=== PATIENT | female | born 1960 | race Caucasian/White ===

== ENCOUNTER 2019-06-11 21:58 | Emergency (ER) | payer BC, SELFPAY ==
--- NOTE | ~2019-06-11 | XR_ITS ---
XR wrist RT min 3V 06/11/2019 22:26 INDICATION: Right wrist pain PROCEDURE: 4 views right wrist COMPARISON: No prior studies for comparison FINDINGS: Fracture, dislocation or subluxation is not identified. Scaphoid appears to be intact. The soft tissues appear within normal limits. No foreign bodies are identified. IMPRESSION: 1: NO ACUTE BONE OR JOINT ABNORMALITY IDENTIFIED. Reviewed, dictated and finalized at location A. [facility] OFFICE ASSISTANT
[2019-06-11 22:02] VITALS: BP 100/51; PULSE 68; RESP 16; TEMP 36.3; O2SAT 97
--- NOTE | 2019-06-11 22:12 | ED.UPPEXIN ---
HPI - Extremity Injury (Upper) General Chief Complaint: Extremity Injury, Upper Stated Complaint: R wrist pain Time Seen by Provider: 06/11/19 22:10 Source: patient and RN notes reviewed Mode of arrival: ambulatory Limitations: no limitations History of Present Illness HPI narrative: Pt is a 58 y/o female who presents to the ED with c/o right wrist pain that radiates up her RUE which began this morning. Pt states the pain began this morning. She reports numbness and tingling to her right digits and RUE, and edema to her right wrist, which makes her think it may be associated to carpal tunnel syndrome. 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 Pt reports taking Aleve this morning and Vicodin an hour ago without alleviation of her symptoms.. Patient states she has had previous carpal tunnel surgery on the hand. MD complaint: injury to: right and wrist Onset (ago): hour(s) (this morning) Other injuries: none Handedness: right Place: work Relieving factors: none (tried different pain medications without relief) Context: other (suddenly) Associated symptoms: numbness (and tingling to her right digits and RUE) and other (edema to right wrist) Related Data Allergies Allergy/AdvReac Type Severity Reaction Status Date / Time codeine Allergy Unknown itching Verified 02/17/19 15:16 Sulfa (Sulfonamide Allergy Unknown itching, Verified 02/17/19 15:16 Antibiotics) headache Review of Systems Review of Systems: All systems reviewed & are unremarkable except as noted in HPI and below Cardiovascular: Cardiovascular: Reports edema (to the right wrist) Musculoskeletal: Musculoskeletal: Reports arthralgias (right wrist pain which radiates to her RUE) Neurologic: Reports numbness (and tingling to her right digits and RUE) [facility] Past Medical History Medical History (Updated 06/11/19 @ 23:13 by Darwin Brambila DO) Anxiety Arthritis Breast cancer Depression Shingles UTI (urinary tract infection) Surgical History Surgical History (Updated 06/11/19 @ 22:19 by Mary Torres) H/O mastectomy H/O: hysterectomy History of bladder surgery Hx of tonsillectomy Social History Social History Smoking status: Smoker, status unknown Alcohol intake: current Gender identity (if verbalized by the patient): Female Exam Narrative: Exam Narrative: APPEARANCE: No acute distress, nontoxic, resting in bed Eyes: EOMI HEENT: Normocephalic, atraumatic, RESPIRATORY: No respiratory distress MUSCULOSKELETAl: Tender palpation over the palmar aspect of the right wrist, mild swelling noted, no tenderness of the elbow or shoulder, radial pulse 2+, neurovascular intact, two-point tactile discrimination 5 mm in all 5 digits of the right hand NEURO: Awake and alert. Following commands, speech normal, no focal deficits SKIN:: Warm, dry. Normal Color no rash or lesions Course Course Emergency Course: Patient states she is on meloxicam at home Patient requesting more for pain. Discussed my concern with narcotics for current pain. Patient states that she cannot take NSAIDs because of meloxicam and that she had a leftover [place] which did not for the pain. Will give small dose of morphine at this time discussed with patient minimal prescription for pain medication will need follow-up with hand surgeon or PCP. Patient does state that she has cock-up wrist splint at home Discussed with patient results of workup and diagnosis. Discussed need for follow-up with primary care, proper use of medication, and reasons to return to the emergency department. Patient understands and agrees to current treatment plan Vital Signs Vital signs: Vital Signs Temperature 97.3 F L 06/11/19 22:02 Pulse Rate 68 06/11/19 22:02 Respiratory Rate 16 06/11/19 22:02 Blood Pressure 100/51 L 06/11/19 22:02 Pulse Oximetry 97 06/11/19 22:02 Temperature 98.3 F 06/11/19 22:25 Pulse Rate 81 06/11/19 22:25 Respiratory
[2019-06-11 22:25] VITALS: BP 138/88; PULSE 81; RESP 16; TEMP 36.8; O2SAT 100
[2019-06-11 23:30] VITALS: BP 133/82; PULSE 84; RESP 16; TEMP 36.8; O2SAT 100
[2019-06-11] MEDS: MORPHINE SULFATE 2 MG/ML INJ IM (23:54)
== END 2019-06-11 23:30 | disposition home or self-care (01) ==
PROVIDERS: Emergency Provider Emergency Medicine; PCP Family Medicine
DX: M25.531 Pain in right wrist (principal); M19.90 Unspecified osteoarthritis, unspecified site; Z85.3 Personal history of malignant neoplasm of breast; Z87.440 Personal history of urinary (tract) infections
CPT/HCPCS: 73110; 96372; 99283; J2270

== ENCOUNTER 2021-04-25 07:54 | Outpatient (CLI) | payer BC, SELFPAY ==
--- NOTE | ~2021-04-25 | DEXA_ITS ---
Bone Density Report Name: [facility] Age: 60 Sex: Female Ethnicity: White Date of : 1960 Indication: postmenopausal; parental hip fracture; history of glucocorticoids; cancer; hysterectomy; rheumatoid arthritis; Referring Provider: UNKNOWN, UNKNOWN Study: Bone densitometry was performed. Exam Date: April 25, 2021 Accession number: [id number] Bone Density: Region BMD T-score Z-score Classification AP Spine (L1-L4) 1.060 0.1 1.4 Normal Femoral Neck (Left) 0.791 -0.5 0.7 Normal Total Hip (Left) 0.976 0.3 1.2 Normal Total Hip Bilateral Avg 0.940 0.0 0.9 Normal Femoral Neck (Right) 0.722 -1.1 0.1 Osteopenia Total Hip (Right) 0.902 -0.3 0.5 Normal World Health Organization criteria for BMD impression classify patients as: Normal (T-score at or above -1.0), Osteopenia (T-score between -1.0 and -2.5), or Osteoporosis (T-score at or below -2.5). 10-year Fracture Risk(1): Major Osteoporotic Fracture 27% Hip Fracture 1.1% Reported Risk Factors: [place] (), Neck BMD=0.722, BMI=26.6, parental fracture, glucocorticoids, rheumatoid arthritis (1) FRAX(R) Version 3.08. Fracture probability calculated for an untreated patient. Fracture probability may be lower if the patient has received treatment. Clinical Information Provided by Patient: Parent has had a hip fracture Has taken Glucocorticoids Has rheumatoid arthritis Has used the following medications: Vitamin D, Calcium Has the following medical conditions: Cancer, Hysterectomy Patient maximum height was 61 Menopause Age: 48 Does not regularly consume dairy products Drinks caffeinated beverages Onset of menses at age 15 Number of children 2 Impression: The patient has low bone mass, based on the Right Femoral Neck T-score. The patient has an estimated ten-year risk of hip fracture of 1.1% and an estimated ten-year risk of major fracture of 27%, based on the WHO FRAX algorithm. The patient has risk factors, including: parental hip fracture, history of glucocorticoid therapy. Discussion: BONE DENSITY IS LOW AT ONE OR MORE SKELETAL SITES. THE PATIENT'S BMD AND CLINICAL RISK FACTORS CONTRIBUTE TO THIS PATIENT'S INCREASED RISK OF FRACTURE. This patient's lowest T-score is low at one or more skeletal sites. It meets the World Health Organization's (WHO) criteria for ?low bone mass? (T-score between -1.0 and -2.5). The patient's 10-year risk of a major osteoporotic fracture as calculated by FRAX exceeds the threshold where pharmacological therapy is recommended by the National Osteoporosis Foundation (NOF). However, all treatment decisions require clinical judgment and consideration of individual patient factors, including patient preferences, comorbidities, previous drug use, risk factors not captured in the FRAX model (e.g., frailty, falls,
== END 2021-04-25 07:55 | disposition home or self-care (01) ==
PROVIDERS: PCP Family Medicine
DX: C50.919 Malignant neoplasm of unspecified site of unspecified female breast (principal); M85.851 Other specified disorders of bone density and structure, right thigh
CPT/HCPCS: 77080

== ENCOUNTER 2021-10-21 14:15 | Emergency (ER) | payer BC, SELFPAY ==
--- NOTE | ~2021-10-21 | XR_ITS ---
EXAMINATION: XR chest 2V DATE: 10/21/2021 14:47 INDICATION: Breast pain TECHNIQUE: PA and lateral views of the chest are obtained. COMPARISON: 07/06/2019 FINDINGS: The lungs are free of acute opacities. There is no pleural effusion or pneumothorax. The ca rdiomediastinal silhouette is normal. There is moderate thoracic spondylosis. Bilateral breast implan ts are noted. IMPRESSION: 1. No acute cardiopulmonary abnormality. Reviewed, dictated and finalized at location A.
--- NOTE | 2021-10-21 14:18 | ECG_ITS ---
Measurements Intervals [place] Rate: 70 P: 24 [place]: 200 QRS: -7 QRSD: 101 T: 47 QT: 434 QTc: 469 Interpretive Statements SINUS RHYTHM LOW QRS VOLTAGE IN PRECORDIAL LEADS [QRS DEFLECTION < 1.0 mV IN CHEST LEADS] INCOMPLETE RIGHT BUNDLE BRANCH BLOCK [90+ ms QRS DURATION, TERMINAL R IN V1/V2, 40+ ms S IN I/aVL/V4/V5/V6] POSSIBLE ANTERIOR MYOCARDIAL INFARCTION , PROBABLY OLD [30 ms Q WAVE IN V3/V4, OR R < 0.2 mV IN V4] NO PREVIOUS ECG AVAILABLE FOR COMPARISON ABNORMAL EKG Electronically Signed On 10-22-2021 13:41:09 CDT by Joe Bernstein M.D.
[2021-10-21 14:22] VITALS: BP 111/78; PULSE 70; RESP 14; TEMP 36.8; O2SAT 98
[2021-10-21 14:46] LABS: Basophils Percent Auto 0.3 % (0.2-1.2); Eosinophils Absolute Auto 0.1 K/mm3 (0-0.3); Eosinophils Percent Auto 1.8 % (0-4.4); Hematocrit 38.8 % (37.0-47.0); Hemoglobin 12.8 g/dL (12.0-15.0); Immature Granulocyte Absolute 0.01 K/mm3 (0.00-0.031); Immature Granulocyte Percent A 0.2 % (0-0.5); Lymphocytes Absolute Auto 2.89 K/mm3 (0.9-3.2); Lymphocytes Percent Auto 48.2 % (18.3-44.2); Mean Corpuscular Hemoglobin 31.1 pg (26-34); Mean Corpuscular Volume 94.4 fl (80-100); Mean Platelet Volume 9.1 fl (7.4-10.4); Monocytes Absolute Auto 0.6 K/mm3 (0.1-0.6); Monocytes Percent Auto 10.2 % (2.6-8.5); Neutrophils Absolute Auto 2.4 K/mm3 (1.3-6.7); Neutrophils Percent Auto 39.3 % (45.5-73.1); Platelet Count Result 267 k/mm3 (150-375); Red Blood Count 4.11 M/mm3 (4.2-5.4); Red Cell Distribution Width 13.5 % (11.5-14.5)
[2021-10-21 14:53] LABS: Alanine Aminotransferase 22 U/L (6-35); Albumin Level 4.7 g/dL (3.5-5.1); Alkaline Phosphatase 59 U/L (38-126); Anion Gap 7 mmol/L (8-16); Aspartate Amino Transferase 27 U/L (14-36); Bilirubin,Total 0.8 mg/dL (0.2-1.3); Blood Urea Nitrogen 24 mg/dL (7-17); Calcium 8.9 mg/dL (8.4-10.2); Carbon Dioxide 27 mmol/L (22-30); Chloride 106 mmol/L (98-107); Estimated CRCL calculation 57 ml/min; Estimated Glomerular Filt Rate > 60; Glucose 91 mg/dL (65-110); Lipase 86 U/L (23-300); Potassium 3.9 mmol/L (3.4-5.0); Sodium 140 mmol/L (137-145)
[2021-10-21 14:54] VITALS: BP 106/84; RESP 24
[2021-10-21 14:55] VITALS: PULSE 73; RESP 18; O2SAT 97
[2021-10-21 14:56] LABS: INR 1.1; Prothrombin Time 13.5 Seconds (11.1-14.7)
[2021-10-21 14:57] LABS: Partial Thromboplastin Time 33.1 SECONDS (22.3-36.8)
[2021-10-21 15:05] LABS: Troponin I < 0.012 ng/mL (0.000-0.034)
--- NOTE | 2021-10-21 16:27 | ED.CHESTPAIN ---
HPI - Chest Pain General Chief Complaint: Chest Pain Stated Complaint: chest pain Time Seen by Provider: 10/21/21 14:44 History of Present Illness HPI narrative: Patient is a 61-year-old female who presents ER with left-sided chest pain. Pain intermittently over the last week. Sharp pain lasts for less than a second. Does not associate with exertion and deep breath. No fevers or chills or sweats. Has not found any alleviating factors. No lower extremity swelling or cramping. Patient does report recent nasal congestion that cough. Related Data Allergies Allergy/AdvReac Type Severity Reaction Status Date / Time codeine Allergy Unknown itching Verified 10/21/21 15:16 Sulfa (Sulfonamide Allergy Unknown itching, Verified 10/21/21 15:16 Antibiotics) headache fentanyl Allergy Nausea and Verified 10/21/21 15:16 Vomiting Review of Systems Review of Systems: All systems reviewed & are unremarkable except as noted in HPI and below Constitutional: Constitutional: Denies chills and Denies fever(s) ENT: Reports nasal congestion and Denies sore throat Cardiovascular: Cardiovascular: Reports chest pain, Denies rapid heart rate and Denies radiating jaw, neck or arm pain Respiratory: Respiratory: Denies cough and Denies dyspnea Gastrointestinal: Gastrointestinal: Denies abdominal pain, Denies nausea and Denies vomiting Neurologic: Denies focal weakness and Denies numbness Psychiatric: Psychiatric: Reports anxiety PMFSH Past Medical History Medical History Anxiety Arthritis Breast cancer Depression Overweight (BMI 25.0-29.9) Shingles UTI (urinary tract infection) Surgical History Surgical History H/O mastectomy H/O: hysterectomy History of bladder surgery Hx of tonsillectomy Social History Social History Alcohol intake: current Gender identity (if verbalized by the patient): Female Exam Narrative: GENERAL: Well-appearing, well-nourished, and in no acute distress. HEAD: Normocephalic, atraumatic. EYES: PERRL and EOMI. CHEST: Clear to auscultation. No respiratory distress. HEART: Regular rate and rhythm. Normal peripheral pulses. ABDOMEN: Soft, nontender, nondistended. EXTREMITIES: Normal range of motion. No edema. NEURO: Alert and oriented x3. PSYCH: Normal mood and affect. Course Course Emergency Course: Unremarkable evaluation. Pain felt to be musculoskeletal versus pleurisy. Discharge home. Vital Signs Vital signs: Vital Signs Temperature 98.2 F 10/21/21 14:22 Pulse Rate 70 10/21/21 14:22 Respiratory Rate 14 10/21/21 14:22 Blood Pressure 111/78 10/21/21 14:22 Pulse Oximetry 98 10/21/21 14:22 Oxygen Delivery Room Air 10/21/21 14:22 Temperature 98.2 F 10/21/21 14:22 Pulse Rate 78 10/21/21 16:38 Respiratory Rate 16 10/21/21 16:38 Blood Pressure 103/60 10/21/21 16:38 Pulse Oximetry 99 10/21/21 16:38 Oxygen Delivery Room Air 10/21/21 14:55 MDM - Chest Pain Lab Data Result diagrams: 10/21/21 14:31 10/21/21 14:31 Labs: Lab Results 10/21/21 10/21/21 10/21/21 Range/Units 14:31 14:31 14:31 WBC 6.0 (4.5-10.0) K/mm3 RBC 4.11 L (4.2-5.4) M/mm3 Hgb 12.8 (12.0-15.0) g/dL Hct 38.8 (37.0-47.0) % MCV 94.4 (80-100) fl MCH 31.1 (26-34) pg MCHC 33.0 (32-36) g/dl RDW 13.5 (11.5-14.5) % Plt Count 267 (150-375) k/mm3 MPV 9.1 (7.4-10.4) fl Immature Gran % (Auto) 0.2 (0-0.5) % Neut % (Auto) 39.3 L (45.5-73.1) % Lymph % (Auto) 48.2 H (18.3-44.2) % Stanley % (Auto) 10.2 H (2.6-8.5) % Eos % (Auto) 1.8 (0-4.4) % Baso % (Auto) 0.3 (0.2-1.2) % Lymph # (Auto) 2.89 (0.9-3.2) K/mm3 Stanley # (Auto) 0.6 (0.1-0.6) K/mm3 Eos # (Auto) 0.1 (0-0.3) K/mm3 Baso # (Auto) 0.0
[2021-10-21 16:38] VITALS: BP 103/60; PULSE 78; RESP 16; O2SAT 99
== END 2021-10-21 16:41 | disposition home or self-care (01) ==
PROVIDERS: Emergency Provider Emergency Medicine; PCP Family Medicine
DX: R07.89 Other chest pain (principal); M19.90 Unspecified osteoarthritis, unspecified site; Z85.3 Personal history of malignant neoplasm of breast; Z87.440 Personal history of urinary (tract) infections; E66.3 Overweight; Z68.27 Body mass index [BMI] 27.0-27.9, adult; Z90.10 Acquired absence of unspecified breast and nipple; I45.10 Unspecified right bundle-branch block; R94.31 Abnormal electrocardiogram [ECG] [EKG]
CPT/HCPCS: 36415; 71046; 80053; 83690; 84484; 85025; 85610; 85730; 93005; 99284

== ENCOUNTER 2021-11-15 08:00 | Outpatient (RCR) | payer BC, SELFPAY ==
--- NOTE | 2021-09-22 11:33 | PTOPEVAL ---
PHYSICAL THERAPY EVALUATION AND PLAN OF CARE 5-12-2-2 Thank you for referring Lou Merrill to [facility] for the diagnosis of chronic back pain. She is scheduled to be seen for therapy? 2 x/week for 4 weeks. Please review, sign, date and return this plan of care REHAN. I agree with and certify that the following plan of care is medically necessary. Referring Physician Date Attending Provider: Anyi Pulido NP Past Medical History Source of Past Medical History Patient Neurological History Hx Neurological Disorders No Significant History Cardiovascular History Hx Cardiac Disorders No Significant History Respiratory History Hx COVID-19 Yes: x2-severe and mild case, headaches lingered Gastrointestinal History Hx Gastrointestinal Disorders No Significant History Genitourinary History Hx Bladder Surgery Yes: bladder suspension surgery Hx Other Genitourinary Disorders Yes: recent urgency issues Musculoskeletal History Hx Back Pain Yes: chronic back pain Hx Other Musculoskeletal Disorders Yes: RA- hands and all over Endocrine History Hx Endocrine Disorders No Significant History Other History Hx Cancer Yes: 2011 Hx Chemotherapy Yes: 4 chemo Evaluation Information Diagnosis chronic low back pain Onset in the past year Subjective Information gradual increase in back pain, Query Text:As Reported By Patient/ no trauma or injury to back; Family issues with chronic back pain about 8 yrs; have been going to chiropractor for treatments past 2 months and massage therapist; have been doing some exercises at home and stretching; Diagnostic Tests X-Rays For This Problem Yes: curvature of spine,disc bulging-per pt report Previous Treatments Previous Treatments For This Problem chiropractor- manipulation & stim, adjustments; helped some went for about 2 mo-no longer going Prior Level of Function Activity Level (Last 3 Months) 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
--- NOTE | 2021-10-19 08:46 | PTOPEVAL ---
PHYSICAL THERAPY REEVALUATION AND UPDATED PLAN OF CARE 10-18-21 Refer to the clinical summary below, for her status today, compared to the initial evaluation. The goals were partially achieved. Continue PT treatment 2x/wk for 4 weeks. Thank you for referring Lou Merrill to [facility].? Please review, sign, date and return this updated plan of care REHAN. I agree with and certify that the following plan of care is medically necessary. Referring Physician Date Attending Provider: Anyi Pulido NP Subjective Information Lou reports: feeling better, Query Text:As Reported By Patient/ pain is still there, but less Family ; taking ibuprofen daily and it helps; doing the exercises ; moving and getting of bed better; Pain Assessment Pain Scale Used Numeric (1 - 10) Self Report Pain Assessment Bilateral Back Reported Pain Level 4 Pain Description Numbness,Tingling Radicular Pain Location L lateral hip to mid thigh- always tingle and there Pain Frequency Chronic,Intermittent Other Pain Description lumbar R and L, hurts and pain Lowest Pain Intensity 0 Greatest Pain Intensity 4 Pain Aggravating Factors Sitting,Weight Bearing/ Standing Additional Pain Score Comments Oswestry self assessment functional score of 22% limitation in activity level reported tolerances: standing and working increase 5 hours of working, sitting 30 min, stairs-do not increase pain; am not crying with pain as much as she was initially; discussed home TENS unit, stated she has an old unit, but does not give very strong stim--discussed getting a newer unit; leukotape strip over R and L thoracic paraspinals--educated pt to monitor skin; Interventions Used Interventions Used By Clinicians Education,Electrical Stimulation,Exercise,Heat Pain Relief Interventions Used By Heat,Medication,Position Patient Change Other Alleviating Interventions ibuprofen, heating pad Lumbar & LE ROMComments standing trunk ROM flexion, side bend R/L, rotation R/L -- all full ROM and do not increase pain supine L hi
--- NOTE | 2021-11-02 10:21 | PCPTNOTE ---
Patient called & cancelled scheduled appointment this date due to having to work. Pt cancelled on 11/01/21.
--- NOTE | 2021-11-07 09:29 | PCPTNOTE ---
Patient did not show up for scheduled appointment this date. Called and spoke with Pt. She stated I thought I cancelled that appointment and Sunday's appointment. Apologized for the miscommunication. Cancelled Pt's appointments.
--- NOTE | 2021-11-15 08:43 | PCPTNOTE ---
pt did not show for today's appt; I called her, she stated she forgot about today's appt. She said she had an MRI and has multiple bulging discs and wants to talk with her dr at the next appt with dr next week. Discussed with her to continue exercises, posture monitoring, stim and heat for pain. If dr wants her to continue PT, get a new script. And call for reeval appt to restart therapy. She voiced understanding of above.
--- NOTE | 2021-12-05 11:41 | PCPTNOTE ---
PHYSICAL THERAPY DISCHARGE REPORT 7 Attending Provider: Anyi Pulido NP Patient:Lou Merrill Date of :1960 Lou has not returned for any further treatments since 10/31/2021, therefore she will be discharged at this time. The goals were not assessed. She called and stated she was going to the dr and would discuss with the dr if she needed anymore therapy or not. Thank you for referring Ms. Merrill to [facility]. Please review, sign, date and return this discharge summary REHAN. I have been updated about the patient's current status and I agree with discharge from the above service at this time. Referring Physician Date
== END 2021-12-06 08:19 | disposition home or self-care (01) ==
LOC: ANHPT 08:00
PROVIDERS: PCP Family Medicine
DX: M54.50 Low back pain, unspecified (principal); G89.29 Other chronic pain
CPT/HCPCS: 97014; 97110; 97112; 97140; 97161; 97530; G0283

== ENCOUNTER 2022-02-10 16:17 | Outpatient (CLI) | payer BC, SELFPAY ==
--- NOTE | ~2022-02-10 | US_ITS ---
EXAMINATION: US thyroid DATE: 02/10/2022 16:55 INDICATION: Nontoxic single thyroid nodule. TECHNIQUE: Multiple ultrasound images of the thyroid were obtained. COMPARISON: None. FINDINGS: The right thyroid lobe measures 4.6 x 1.5 x 1.6 cm. The left thyroid lobe measures 4.0 x 2.4 x 1.9 c m. In the left thyroid lobe, there is a 1.7 cm solid, isoechoic, wider than tall nodule with ill-def ined margin without echogenic foci (TI-RADS TR3). IMPRESSION: 1. Left thyroid nodule. Thyroid ultrasound is recommended in one year. Reviewed, dictated and finalized at location A.
== END 2022-02-10 16:18 | disposition home or self-care (01) ==
LOC: ANHIMG 16:23
PROVIDERS: PCP Family Medicine; Visit Provider Physician Assistant
DX: E04.1 Nontoxic single thyroid nodule (principal)
CPT/HCPCS: 76536

== ENCOUNTER → 2022-08-24 08:11 | Outpatient (CLI) | payer BC, SELFPAY | PROVIDERS: PCP Family Medicine; Visit Provider Family Medicine | DX: G47.30 Sleep apnea, unspecified (principal) | CPT/HCPCS: 99199 ==

== ENCOUNTER 2022-10-02 08:24 | Outpatient (CLI) | payer BC, SELFPAY ==
--- NOTE | 2022-10-04 18:02 | WPDHOMESLEEP ---
Sleep Study - Home Unattended Date of Study: 10/02/22 Ordering Provider: Fletcher Dockery MD Interpreting Provider: Kassy Merida MD Home Sleep Study Type: Apnea Link Air Height: 1.55 m Weight: 66.678 kg Body Mass Index: 27.8 Neck Circumference (inches): 15 [place]: 12 Reason for Sleep Study Hypersomnolence Sleep History Lou Merrill is a 62-year-old woman with a history of obstructive sleep apnea who used CPAP in the past. She rarely awakens from sleep feeling short of breath. She occasionally awakens at night with heartburn, belching or coughing. She occasionally snores and occasionally it is loud enough that others complain about it. She occasionally has trouble sleeping with a cold. She never wakes up gasping for breath at night or have breathing problems at night reported to her by others. She rarely sweats excessively at night. She does not notice her heart pounding or beating irregularly at night. She occasionally falls asleep during the day. She does not fall asleep involuntarily or while driving. She does not have loss of muscle tone with strong emotion. She does not have daytime difficulties due to excessive sleepiness. She occasionally feels paralyzed on waking or falling asleep. She wrote in her sleep questionnaire that when her eyes are closed she can hear people but she cannot move. She will try to talk, tells herself to move, talk and cannot do these things. She gives an accurate description of sleep paralysis. She occasionally has vivid dreamlike scenes upon awakening or falling asleep. She rarely feels afraid to go to sleep. She rarely has nightmares. She occasionally remembers her dreams. She occasionally has racing thoughts. She occasionally feels sad, depressed and frequently feels anxious. She occasionally has muscular tension. She occasionally notices parts of her body jerking. She rarely kicks at night. She does not have crawling or aching feelings in her legs, does not have leg pain during the night and does not have morning jaw pain. She rarely grinds her teeth during sleep. She occasionally is bothered by pain during the day. She rarely is awakened by pain at night. She frequently wakes up feeling stiff in the morning with sore achy muscles and pain in the neck and spine. She has headaches and depression. Normal bedtime is Between 9:00 p.m. and 10:00 p.m. falling asleep quickly. She typically wakes up between 2 and 3 times during the night but is able to return to sleep quickly. She wakes the morning between 7:00 a.m. and 8:00 a.m.. On weekends she may go to bed later than 10:00 a.m.. She still wakes between 7:00 a.m. and 8:00 a.m.. She sometimes takes naps in the afternoon or evening. A short nap lasting 10 or 15 minutes may be refreshing. She feels better in the morning compared to other times of day. Habits: Former tobacco user. Caffeine 1 serving in the morning. No alcohol or recreational substances. [facility] Past Medical History Medical History (Updated 10/04/22 @ 18:19 by Kassy Merida MD) Anxiety Arthritis Breast cancer Depression Overweight (BMI 25.0-29.9) Rheumatoid arthritis Shingles Thyroid nodule UTI (urinary tract infection) Surgical History Surgical History H/O mastectomy H/O: hysterectomy History of bladder surgery Hx of tonsillectomy S/P lumbar spinal fusion Social History Social History Smoking status: Former smoker Alcohol intake: current Lack of Transportation: No Lack of Food: Never True Current Housing: I Have Housing Concerned About Future Housing: No Difficulty Paying Gas/Electric Bills: No Difficulty Paying for Meds: No Currently Unemployed: No Education: Trade/Vocational Certificate Difficulty w/ Childcare or Family Care: No Gender identity (if verbalized by the patient): Female Medicati
[2022-10-04 19:07] VITALS: BMI 27.8
--- NOTE | 2023-05-31 14:08 | SLEEP ---
pt did not receive a new machine no more calls
== END 2022-10-03 12:58 | disposition home or self-care (01) ==
LOC: ANHCSM 08:25
PROVIDERS: PCP Family Medicine; Visit Provider Family Medicine
DX: G47.33 Obstructive sleep apnea (adult) (pediatric) (principal)
CPT/HCPCS: 95806

== ENCOUNTER 2023-03-01 08:00 | Outpatient (CLI) | payer BC, SELFPAY ==
--- NOTE | 2023-03-01 08:47 | ECG_ITS ---
Measurements Intervals [place] Rate: 59 P: 12 [place]: 201 QRS: -15 QRSD: 89 T: 29 QT: 433 QTc: 430 Interpretive Statements SINUS BRADYCARDIA RSR' V1 AND V2 LOW-VOLTAGE QRS IN PRECORDIAL LEADS BORDERLINE ECG COMPARED TO ECG 10/21/2021 14:23:32 HEART RATE HAS DECREASED Electronically Signed On 03-01-2023 17:16:23 CDT by Harry Davila M.D.
[2023-03-01 09:05] LABS: Basophils Percent Auto 0.4 % (0.2-1.2); Eosinophils Absolute Auto 0.1 K/mm3 (0-0.3); Hematocrit 40.3 % (37.0-47.0); Immature Granulocyte Absolute 0.02 K/mm3 (0.00-0.031); Immature Granulocyte Percent A 0.4 % (0-0.5); Lymphocytes Absolute Auto 2.43 K/mm3 (0.9-3.2); Lymphocytes Percent Auto 44.3 % (18.3-44.2); Mean Corpuscular HGB Conc 32.3 g/dl (32-36); Mean Corpuscular Hemoglobin 30.6 pg (26-34); Mean Corpuscular Volume 94.8 fl (80-100); Mean Platelet Volume 9.4 fl (7.4-10.4); Monocytes Absolute Auto 0.5 K/mm3 (0.1-0.6); Monocytes Percent Auto 9.7 % (2.6-8.5); Neutrophils Absolute Auto 2.4 K/mm3 (1.3-6.7); Neutrophils Percent Auto 43.2 % (45.5-73.1); Platelet Count Result 255 k/mm3 (150-375); Red Blood Count 4.25 M/mm3 (4.2-5.4); Red Cell Distribution Width 13.2 % (11.5-14.5); White Blood Count 5.5 K/mm3 (4.5-10.0)
[2023-03-01 09:14] LABS: Anion Gap 8 mmol/L (8-16); Blood Urea Nitrogen 23 mg/dL (7-17); Calcium 8.8 mg/dL (8.4-10.2); Carbon Dioxide 22 mmol/L (22-30); Chloride 109 mmol/L (98-107); Estimated Glomerular Filt Rate > 60; Glucose 106 mg/dL (65-110); Sodium 139 mmol/L (137-145)
== END 2023-03-01 08:01 | disposition home or self-care (01) ==
PROVIDERS: PCP Family Medicine
DX: Z85.3 Personal history of malignant neoplasm of breast (principal); Z98.890 Other specified postprocedural states
CPT/HCPCS: 36415; 80048; 85025; 93005

== ENCOUNTER 2023-09-07 14:31 | Outpatient (CLI) | payer BC, SELFPAY ==
--- NOTE | ~2023-09-07 | XR_ITS ---
EXAMINATION: XR chest 2V 09/07/2023 14:47 INDICATION: Cough for one month PROCEDURE: 2 view chest COMPARISON: 10/21/2021 FINDINGS: The lungs are clear. There are breast implants. The cardiomediastinal silhouette is within normal limits. There are no pleural effusions. There is no pneumothorax suspected. IMPRESSION: 1: NO ACUTE CARDIOPULMONARY DISEASE. Reviewed, dictated and finalized at location B.
== END 2023-09-07 14:32 | disposition home or self-care (01) ==
PROVIDERS: PCP Family Medicine; Visit Provider Nurse Practitioner Family
DX: R05.9 Cough, unspecified (principal)
CPT/HCPCS: 71046

== ENCOUNTER 2023-09-11 03:02 | Emergency (ER) | payer BC, SELFPAY ==
--- NOTE | ~2023-09-11 | XR_ITS ---
Portable chest x-ray Comparison: 09/07/2023 Clinical History: Cough Findings: Lungs are clear, without focal consolidation or pleural effusion. Cardiomediastinal silho uette is stable. Bones and soft tissues are unremarkable. Impression: Normal chest. Reviewed, dictated and finalized at [facility]. Impression: Normal chest.
[2023-09-11 03:14] VITALS: BP 133/95; PULSE 94; RESP 20; TEMP 36.6; O2SAT 99
--- NOTE | 2023-09-11 03:35 | ED.GENADULT ---
HPI - General Adult General Chief complaint: Upper Respiratory Infection Stated complaint: Cough Time Seen by Provider: 09/11/23 03:16 History of Present Illness HPI narrative: of 63-year-old female presenting with cough. She has had a cough for approximately 1 month. She feels well otherwise. Unfortunately her cough comes in fits and makes it difficult for her to breathe. She feels well in between fits. No post tussive emesis. Patient has tried multiple remedies for cough Benadryl, Flonase, honey and whiskey. She has been seen at multiple urgent cares and primary care physician for this. She has been prescribed amoxicillin, Augmentin doxycycline and is currently on a course of cefdinir. She has not taken azithromycin as she says that does not work for her. Related Data Home Medications Medication Instructions Recorded Confirmed adalimumab 40 mg/0.4 mL 40 mg subcut 07/17/22 04/26/23 subcutaneous pen kit (Humira(CF) Pen) baclofen 10 mg tablet 10 mg PO DAILY 07/17/22 04/26/23 clindamycin phosphate 1 % lotion ml topical 07/17/22 04/26/23 folic acid 1 mg tablet 1 mg PO 07/17/22 04/26/23 clonazepam 0.5 mg tablet 0.5 mg PO Q12H 08/28/22 04/26/23 Allergies Allergy/AdvReac Type Severity Reaction Status Date / Time codeine Allergy Unknown itching Verified 04/26/23 13:32 Sulfa (Sulfonamide Allergy Unknown itching, Verified 04/26/23 13:32 Antibiotics) headache fentanyl Allergy Nausea and Verified 04/26/23 13:32 Vomiting PMFSH Past Medical History Medical History Anxiety Arthritis Breast cancer Depression Overweight (BMI 25.0-29.9) Rheumatoid arthritis Shingles Thyroid nodule UTI (urinary tract infection) Surgical History Surgical History H/O mastectomy H/O: hysterectomy History of bladder surgery Hx of tonsillectomy S/P lumbar spinal fusion Social History Social History Smoking status: Former smoker Alcohol intake: current Lack of Transportation: No Lack of Food: Never True Current Housing: I Have Housing Concerned About Future Housing: No Difficulty Paying Gas/Electric Bills: No Difficulty Paying for Meds: No Currently Unemployed: No Education: Trade/Vocational Certificate Difficulty w/ Childcare or Family Care: No Gender identity (if verbalized by the patient): Female Exam Narrative: APPEARANCE: patient has staccato coughing fits and appears well in between Head: atraumatic. EYES: EOMI, NOSE: Atraumatic NECK: Trachea midline RESPIRATORY: No increased rate of breathing Clear auscultation CARDIOVASCULAR: RRR, no peripheral edema ABDOMINAL: Non-distended soft nontender MUSCULOSKELETAl: No obvious deformities NEURO: Alert. Moving 4/4 extremities SKIN:: Warm, dry. Normal color PSYCHIATRIC: Normal affect Course Vital Signs Vital signs: Vital Signs Temperature 97.9 F 09/11/23 03:14 Pulse Rate 94 09/11/23 03:14 Respiratory Rate 20 09/11/23 03:14 Blood Pressure 133/95 H 09/11/23 03:14 Pulse Oximetry 99 09/11/23 03:14 Oxygen Delivery Room Air 09/11/23 03:14 Temperature 97.9 F 09/11/23 03:14 Pulse Rate 94 09/11/23 03:14 Respiratory Rate 20 09/11/23 03:14 Blood Pressure 133/95 H 09/11/23 03:14 Pulse Oximetry 99 09/11/23 03:14 Oxygen Delivery Room Air 09/11/23 03:14 Medical Decision Making [facility] Narrative Medical decision making narrative: -Course: 63-year-old female presenting with 1 month of cough. She has been treated on multiple antibiotics and is currently on cefdinir day 2. She has not been on azithromycin which would cover for pertussis. Patient is currently afebrile with stable vital signs. Chest x-ray showed atelectasis versus possible infiltrate in the right lower lobe. azithromycin will be added to her current re
[2023-09-11] MEDS: AZITHROMYCIN 250 MG TABLET 500 MG PO (03:42)
[2023-09-11] MEDS: guaiFENesin/DEXTROMETHORPHAN 10 ML UDC PO (03:42)
== END 2023-09-11 04:25 | disposition home or self-care (01) ==
PROVIDERS: Emergency Provider Emergency Medicine; PCP Family Medicine
DX: R05.9 Cough, unspecified (principal); E66.3 Overweight; Z68.29 Body mass index [BMI] 29.0-29.9, adult; M06.9 Rheumatoid arthritis, unspecified; M19.90 Unspecified osteoarthritis, unspecified site; F32.A Depression, unspecified; F41.9 Anxiety disorder, unspecified; Z98.1 Arthrodesis status; Z85.3 Personal history of malignant neoplasm of breast; Z87.440 Personal history of urinary (tract) infections; Z87.891 Personal history of nicotine dependence; Z90.10 Acquired absence of unspecified breast and nipple; Z90.710 Acquired absence of both cervix and uterus
CPT/HCPCS: 71045; 99283; A9270

== ENCOUNTER 2023-10-29 02:03 | Day surgery (SDC) | payer BC, SELFPAY ==
[2023-10-15 14:23] VITALS: BMI 28.3
[2023-10-15 14:55] VITALS: BMI 28.3
--- NOTE | 2023-10-29 07:02 | WPDANESEPPF ---
Anes - Initial Pre Proc Eval Procedure: Operation Date: 10/29/23 08:30 Proposed Procedures p Screening Colonoscopy - Jasper Nair MD Date/Time: 10/29/23 07:02 Surgeon: Jasper Nair MD Pre Op Diagnosis: neoplasm screening Patient Data Age: 63 Gender: F Height: 1.55 m Weight: 68 kg Allergies Allergy/AdvReac Type Severity Reaction Status Date / Time codeine Allergy Unknown itching Verified 10/29/23 07:02 Sulfa (Sulfonamide Allergy Unknown itching, Verified 10/29/23 07:02 Antibiotics) headache fentanyl Allergy Nausea and Verified 10/29/23 07:02 Vomiting Home Medications Medication Instructions Recorded Confirmed Type folic acid 1 mg tablet 1 mg PO DAILY 07/17/22 10/22/23 History escitalopram oxalate 10 mg tablet 10 mg PO DAILY #90 tabs 03/05/23 10/22/23 Rx (Lexapro) escitalopram oxalate 20 mg tablet See Rx Instructions .Route 03/05/23 10/22/23 Rx .COMPLEX #90 tabs fluconazole 150 mg tablet 150 mg PO DAILY #4 tabs 08/02/23 10/22/23 Rx bupropion HCl 150 mg 24 hr tablet, 150 mg PO QAM #90 tabs 08/03/23 10/22/23 Rx extended release pantoprazole 40 mg tablet,delayed 40 mg PO DAILY 09/13/23 10/22/23 History release methotrexate sodium 2.5 mg tablet 20 mg PO WEEKLY 10/15/23 10/22/23 History adalimumab 40 mg/0.8 mL See Rx Instructions subcut 10/22/23 10/22/23 Rx subcutaneous pen kit (Humira Pen) .COMPLEX #2 ea mirabegron 25 mg tablet,extended 25 mg PO DAILY #90 tabs 10/22/23 10/22/23 Rx release 24 hr (Myrbetriq) trazodone 100 mg tablet 100 mg PO QHS PRN sleep #30 tabs 10/25/23 Rx Patient hx anesthesia problems: none Family hx anesthesia problems: none Results Review: All pre-operative results and documents have been reviewed as part of the pre-operative evaluation. [facility] Past Medical History Medical History (Updated 10/29/23 @ 07:04 by Donovan Guerrero DO) Anxiety Arthritis Breast cancer Depression Hearing loss Overweight (BMI 25.0-29.9) Rheumatoid arthritis Shingles Sleep apnea Thyroid nodule UTI (urinary tract infection) Surgical History Surgical History H/O mastectomy H/O: hysterectomy History of bladder surgery Hx of tonsillectomy S/P lumbar spinal fusion Social History Social History Smoking status: Former smoker Tobacco type: cigarettes Alcohol intake: current Drinks per week: 6 Lack of Transportation: No Lack of Food: Never True Current Housing: I Have Housing Concerned About Future Housing: No Difficulty Paying Gas/Electric Bills: No Difficulty Paying for Meds: No Currently Unemployed: No Education: Trade/Vocational Certificate Difficulty w/ Childcare or Family Care: No Living arrangements: alone Gender identity (if verbalized by the patient): Female Anes - Eval Final PreProcedure Day of Procedure 10/29/23 07:02 Patient weight: overweight Heart: regular rate and rhythm Lungs: clear to auscultation Airway: Mallampati scale class II Neurological: alert and oriented Last oral intake: >/= 8 hours ASA classification: III Emergent: no Anesthetic plan: proceed Anesthesia type and monitoring: general GIVS and standard monitoring Results Review: All pre-operative results and documents have been reviewed as part of the pre-operative evaluation. Informed Consent: The patient's anesthetic plan and its attendant risks and benefits were discussed with the patient/family/POA. Questions were solicited and answers provided to the satisfaction of the patient/family/POA.
[2023-10-29 07:04] VITALS: BP 110/79; PULSE 80; RESP 20; TEMP 36.4; O2SAT 99
[2023-10-29] MEDS: LACTATED RINGERS 1,000 ML 150 ML IV CONT (07:17)
--- NOTE | 2023-10-29 08:11 | PM.HPGS ---
History of Present Illness History of Present Illness Consent: Risks, benefits, and alternatives have been discussed and questions answered. Patient agrees to proceed with procedure. Chief complaint: neoplasm screening Narrative: Lou Merrill is a 63 year old female here for screening colonoscopy, last one 10 years ago Review of Systems Review of Systems: All systems reviewed & are unremarkable except as noted in HPI and below PMFSH Past Medical History Medical History (Updated 10/29/23 @ 08:13 by Jasper Nair MD) Anxiety Arthritis Breast cancer Colon cancer screening Depression Hearing loss Overweight (BMI 25.0-29.9) Rheumatoid arthritis Shingles Sleep apnea Thyroid nodule UTI (urinary tract infection) Surgical History Surgical History H/O mastectomy H/O: hysterectomy History of bladder surgery Hx of tonsillectomy S/P lumbar spinal fusion Social History Social History Smoking status: Former smoker Tobacco type: cigarettes Alcohol intake: current Drinks per week: 6 Lack of Transportation: No Lack of Food: Never True Current Housing: I Have Housing Concerned About Future Housing: No Difficulty Paying Gas/Electric Bills: No Difficulty Paying for Meds: No Currently Unemployed: No Education: Trade/Vocational Certificate Difficulty w/ Childcare or Family Care: No Living arrangements: alone Gender identity (if verbalized by the patient): Female Meds Home Medications and Allergies Home Medications Medication Instructions Recorded Confirmed Type folic acid 1 mg tablet 1 mg PO DAILY 07/17/22 10/22/23 History escitalopram oxalate 10 mg tablet 10 mg PO DAILY #90 tabs 03/05/23 10/22/23 Rx (Lexapro) escitalopram oxalate 20 mg tablet See Rx Instructions .Route 03/05/23 10/22/23 Rx .COMPLEX #90 tabs fluconazole 150 mg tablet 150 mg PO DAILY #4 tabs 08/02/23 10/22/23 Rx bupropion HCl 150 mg 24 hr tablet, 150 mg PO QAM #90 tabs 08/03/23 10/22/23 Rx extended release pantoprazole 40 mg tablet,delayed 40 mg PO DAILY 09/13/23 10/22/23 History release methotrexate sodium 2.5 mg tablet 20 mg PO WEEKLY 10/15/23 10/22/23 History adalimumab 40 mg/0.8 mL See Rx Instructions subcut 10/22/23 10/22/23 Rx subcutaneous pen kit (Humira Pen) .COMPLEX #2 ea mirabegron 25 mg tablet,extended 25 mg PO DAILY #90 tabs 10/22/23 10/22/23 Rx release 24 hr (Myrbetriq) trazodone 100 mg tablet 100 mg PO QHS PRN sleep #30 tabs 10/25/23 Rx Allergies Allergy/AdvReac Type Severity Reaction Status Date / Time codeine Allergy Unknown itching Verified 10/29/23 07:02 Sulfa (Sulfonamide Allergy Unknown itching, Verified 10/29/23 07:02 Antibiotics) headache fentanyl Allergy Nausea and Verified 10/29/23 07:02 Vomiting Vital Signs Vital Signs - 24 hr 10/29/23 07:04 Temperature 97.5 F L Pulse Rate 80 Respiratory Rate 20 Blood Pressure 110/79 Pulse Oximetry 99 Oxygen Delivery Room Air Exam Const: General: comfortable and no acute distress HENMT: Face/Nose/Sinus: Normal nares present Eyes: General: appearance normal, both eyes and all related structures Neck: Neck: no JVD Resp: Auscultation: clear to auscultation bilaterally Cardio: Rate: regular rate Rhythm: regular rhythm GI: Inspection: non-distended GI Palp: Yes Soft to palpation Skin: General skin exam: normal color Neuro: General: gait normal Speech: normal speech Extrem: General: normal to inspection Psych: Mental Status: mental status grossly normal Assessment and Plan Assessment and plan (1) Colon cancer screening: Code(s): Z12.11 - Encounter for screening for malignant neoplasm of colon Status: Acute Assessment and Plan: colonoscopy
[2023-10-29 08:28] VITALS: BP 103/73; PULSE 68; RESP 19; O2SAT 97
[2023-10-29 08:38] VITALS: BP 118/84; PULSE 62; RESP 16; O2SAT 100
[2023-10-29 08:48] VITALS: BP 120/88; PULSE 60; RESP 16; O2SAT 99
== END 2023-10-29 08:58 | disposition home or self-care (01) ==
PROVIDERS: PCP Family Medicine; Referring Provider Nurse Practitioner; Visit Provider Internal Medicine Gastroenterology
PROC: 0DJD8ZZ Inspection of Lower Intestinal Tract, Via Natural or Artificial Opening Endoscopic (ICD-10-PCS; CPT 45378; principal; 2023-10-29 08:30)
DX: Z12.11 Encounter for screening for malignant neoplasm of colon (principal); K64.8 Other hemorrhoids; M06.9 Rheumatoid arthritis, unspecified; G47.30 Sleep apnea, unspecified; F41.9 Anxiety disorder, unspecified; F32.A Depression, unspecified; Z85.3 Personal history of malignant neoplasm of breast; Z98.1 Arthrodesis status; Z87.891 Personal history of nicotine dependence; Z79.620 Long term (current) use of immunosuppressive biologic; Z79.631 Long term (current) use of antimetabolite agent
CPT/HCPCS: 45378; J2001; J2704; J7120

== ENCOUNTER 2023-11-12 10:14 | Outpatient (CLI) | payer BC, SELFPAY | END 2023-11-12 10:15 | disposition home or self-care (01) | LOC: ANHAUDASC 10:14 | PROVIDERS: PCP Family Medicine; Visit Provider Family Medicine | DX: H90.3 Sensorineural hearing loss, bilateral (principal) | CPT/HCPCS: 92557; 92567 ==

== ENCOUNTER 2024-03-11 08:11 | Emergency (ER) | payer BC, SELFPAY ==
--- NOTE | ~2024-03-11 | XR_ITS ---
EXAMINATION: XR foot RT min 3V DATE: 03/11/2024 09:17 INDICATION: Anterior right foot pain and swelling TECHNIQUE: Dorsoplantar, two oblique and lateral views of the right foot were obtained. COMPARISON: None. FINDINGS: Bone alignment is normal. No fracture. Polyarticular osteoarthritis, moderate severity at the first m etatarsophalangeal joint and mild at the tarsal metatarsal and interphalangeal joints. Achilles and p lantar calcaneal enthesophytes. Heterotopic ossicle near the tip the medial malleolus likely sequela of chronic deltoid ligament sprain. No ankle joint effusion. Soft tissues are unremarkable. IMPRESSION: 1. Corticated heterotopic ossicle along the medial malleolus likely sequela of chronic deltoid ligame nt sprain. No acute osseous abnormality. 2. 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 Reviewed, dictated and finalized at location [facility]. IMPRESSION: 1. Corticated heterotopic ossicle along the medial malleolus likely sequela of chronic deltoid ligament sprain. No acute osseous abnormality. 2. 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
--- NOTE | 2024-03-11 08:22 | ED_ITS ---
HPI - Extremity Injury (Lower) General Chief Complaint: Extremity Injury, Lower Stated Complaint: rt foot pain Time Seen by Provider: 03/11/24 09:20 Source: patient and RN notes reviewed Mode of arrival: ambulatory Limitations: no limitations History of Present Illness HPI Narrative: 63-year-old female presents with concern for left ankle and foot pain that started yesterday. Reports started a few hours after she did some exercising that included hopping and jumping. She denies any injury during exercise. She reports pain at rest, worsening pain with weight-bearing. She reports pain with extension of the foot. She reports some swelling of the ankle and foot. MD complaint: ankle injury Related Data Home Medications Medication Instructions Recorded Confirmed folic acid 1 mg tablet 1 mg PO DAILY 07/17/22 03/05/24 pantoprazole 40 mg tablet,delayed 40 mg PO DAILY 09/13/23 03/05/24 release methotrexate sodium 2.5 mg tablet 20 mg PO WEEKLY 10/15/23 03/05/24 estradiol 0.01% (0.1 mg/gram) vaginal 03/05/24 03/05/24 vaginal cream Allergies Allergy/AdvReac Type Severity Reaction Status Date / Time codeine Allergy Unknown itching Verified 03/11/24 08:37 Sulfa (Sulfonamide Allergy Unknown itching, Verified 03/11/24 08:37 Antibiotics) headache fentanyl Allergy Nausea and Verified 03/11/24 08:37 Vomiting Review of Systems Review of Systems: CONSTITUTIONAL: Denies malaise, chills, sweats, or fever. SKIN: Denies rash or itching, open skin, laceration, abrasion, redness, warmth MUSCULOSKELETAL: Reports left ankle and foot pain and swelling NEUROLOGIC: Denies numbness, weakness All systems reviewed & are unremarkable except as noted in HPI and below PMFSH Past Medical History Medical History Anxiety Arthritis Breast cancer Colon cancer screening Depression Hearing loss Overweight (BMI 25.0-29.9) Rheumatoid arthritis Shingles Sleep apnea Thyroid nodule UTI (urinary tract infection) Surgical History Surgical History H/O mastectomy H/O: hysterectomy History of bladder surgery Hx of tonsillectomy S/P lumbar spinal fusion Social History Social History Smoking status: Former smoker Tobacco type: cigarettes Alcohol intake: current Drinks per week: 6 Lack of Transportation: No Lack of Food: Never True Current Housing: I Have Housing Concerned About Future Housing: No Difficulty Paying Gas/Electric Bills: No Difficulty Paying for Meds: No Currently Unemployed: No Education: Trade/Vocational Certificate Difficulty w/ Childcare or Family Care: No Living arrangements: alone Gender identity (if verbalized by the patient): Female Comments At time of signature, agree with nursing past medical, surgical, social and family history. There is no relevant family history pertinent to the presenting complaint Exam Narrative: GENERAL: Well-appearing, well-nourished, and in no acute distress. HEAD: Normocephalic, atraumatic. EYES: PERRLA, conjunctivae clear NECK: Supple. CHEST: Speaks in full sentences. No respiratory distress. HEART: Regular rate and rhythm. Normal and equal peripheral pulses. EXTREMITIES: Left ankle, foot, digits have grossly normal strength and sensation, grossly normal range of motion. Mild general foot and ankle edema without erythema or ecchymosis. 5/5 strength with digit flexion and extension. Normal sensation with sensitivity to light touch and pain. Lateral ankle and dorsal foot tenderness. No open wounds, no skin tenting, no devitalized tissue or atrophy, no trophic changes, no obvious deformity, alignment normal, nearby joints and structures intact. Distal pulses palpable and equal bilaterally, skin warm, dry, pink. Capillary refill less than 3 seconds. SKIN: Warm, dry, no rash. NEURO: Alert and oriented x3. PSYCH: Normal mood and affect Course Course Emergency Course: Patient is aware of diagnosis, understands and agrees to treatment plan. Anticipatory guidance given. Patient agrees to follow-up as directed and is aware of reasons to seek care at the emergency department. Portions of this record may have been created with voice recognition software Level of Care: Express Care Visit Vital Signs Vital signs: Reviewed. MDM - Extremity Injury (Lower) MDM Narrative Medical decision making narrative: Patients injury and pain is consistent with musculoskeletal etiology. No signs of neurological or vascular compromise on exam. Compartments and tissues are soft without signs of compartment syndrome. Pain is felt appropriate for further evaluation on an outpatient basis. Imaging Data My impression: Images reviewed, interpreted by radiologist, agree, see report. Radiologist's impression: EXAMINATION: XR foot RT min 3V DATE: 03/11/2024 09:17 INDICATION: Anterior right foot pain and swelling TECHNIQUE: Dorsoplantar, two oblique and lateral views of the right foot were obtained. COMPARISON: None. FINDINGS: Bone alignment is normal. No fracture. Polyarticular osteoarthritis, moderate severity at the first metatarsophalangeal joint and mild at the tarsal metatarsal and interphalangeal joints. Achilles and plantar calcaneal enthesophytes. Heterotopic ossicle near the tip the medial malleolus likely sequela of chronic deltoid ligament sprain. No ankle joint effusion. Soft tissues are unremarkable. IMPRESSION: 1. Corticated heterotopic ossicle along the medial malleolus likely sequela of chronic deltoid ligament sprain. No acute osseous abnormality. 2. 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 Critical Care Time Critical Care Time Critical Care Time: No Discharge Plan Discharge Clinical Impression: Ankle sprain Patient Disposition: Home, Self-Care Condition: Stable Instructions: Ankle Sprain (ED) Additional Instructions: Avoid activities that cause pain until the pain subsides. Ice to the area 20-30 minutes 4-6 times a day Elevate above heart Walking boot as needed for comfort Tylenol for lesser pain Continue your diclofenac Follow up with your primary care provider if the condition is not improving within 1 week. If the condition worsens with numbness, tingling, decrease sensation with we akness seek treatment in the emergency room immediately. Prescriptions: New (DME) walking boot See Rx Instructions .Route .MEDSUPPLY Qty: 1 0RF Rx Instructions: As directed No Action folic acid 1 mg tablet 1 mg PO DAILY Humira Pen 40 mg/0.8 mL pen injector kit See Rx Instructions subcut .COMPLEX Qty: 2 0RF Rx Instructions: inject one - 40 mg/0.8 mL pen every 2 weeks subcut mirabegron [Myrbetriq] 25 mg tablet extended release 24 hr 25 mg PO DAILY Qty: 90 3RF estradiol 0.01 % (0.1 mg/gram) cream vaginal diclofenac sodium 75 mg tablet,delayed release (DR/EC) 75 mg PO BID Qty: 180 0RF escitalopram oxalate 20 mg tablet See Rx Instructions .ROUTE .COMPLEX Qty: 90 3RF Dose Instruction: TAKE 1 TABLET BY MOUTH DAILY Rx Instructions: TAKE 1 TABLET BY MOUTH DAILY pantoprazole 40 mg tablet,delayed release (DR/EC) 40 mg PO DAILY methotrexate sodium 2.5 mg tablet 20 mg PO WEEKLY Rx Instructions: 2.5 x8 tablets one time per week trazodone 100 mg tablet 100 mg PO QHS PRN (Reason: sleep) Qty: 30 5RF bupropion HCl 150 mg tablet extended release 24 hr 150 mg PO QAM Qty: 90 0RF tobramycin 0.3 % drops 1 drp LEFT EYE Q4H 7 Days Qty: 5 0RF Follow-up/Referrals: Fletcher Dockery MD [Primary Care Provider] - Konrad Calzada MD [Physician] - Time of Disposition: 09:58
[2024-03-11 08:33] VITALS: BP 123/91; PULSE 71; RESP 16; TEMP 36.6; O2SAT 97
== END 2024-03-11 11:35 | disposition home or self-care (01) ==
PROVIDERS: Emergency Provider Nurse Practitioner; PCP Family Medicine
DX: S93.401A Sprain of unspecified ligament of right ankle, initial encounter (principal); X58.XXXA Exposure to other specified factors, initial encounter; M19.90 Unspecified osteoarthritis, unspecified site; M06.9 Rheumatoid arthritis, unspecified; Z85.3 Personal history of malignant neoplasm of breast; Z90.10 Acquired absence of unspecified breast and nipple; Z87.891 Personal history of nicotine dependence
CPT/HCPCS: 73630; 99213; G0463

== ENCOUNTER 2024-03-13 14:28 | Outpatient (CLI) | payer BC, SELFPAY ==
--- NOTE | ~2024-03-13 | MR_ITS ---
EXAMINATION: MR cervical spine wo con DATE: 03/13/2024 14:59 INDICATION: Neck pain. Cervical radiculopathy. TECHNIQUE: Magnetic resonance imaging (MRI) of the cervical spine was performed without intravenous c ontrast. COMPARISON: Cervical spine radiographs 03/13/2024 FINDINGS: There is a degrees dextrocurvature of cervicothoracic spine. There is mild chronic anterior wedging of C5 vertebral body. There is mildly decreased disc height at C4-C5, moderately decreased d isc height at C5-C6, and mildly decreased disc height at C6-C7. The spinal cord signal intensity is n ormal. The following disc levels are specifically discussed: C2-C3: The disc does not extend beyond the endplate margin. There is no uncovertebral joint osteoarth ritis. There is mild left facet joint osteoarthritis. There is no neural foraminal stenosis. There is no central canal stenosis. C3-C4: The disc is bulging. There is severe left uncovertebral joint osteoarthritis. There is severe bilateral facet joint osteoarthritis. There is moderate left neural foraminal stenosis. There is mild central canal stenosis. C4-C5: There is a left central protrusion. There is mild right and moderate left uncovertebral joint osteoarthritis. There is severe bilateral facet joint osteoarthritis. There is mild right and moderat e left neural foraminal stenosis. There is mild central canal stenosis. C5-C6: The disc is bulging. There is severe bilateral uncovertebral joint osteoarthritis. There is mi ld right and moderate left facet joint osteoarthritis. There is moderate bilateral neural foraminal s tenosis. There is mild central canal stenosis. C6-C7: The disc is bulging. There is moderate bilateral uncovertebral joint osteoarthritis. There is mild right and severe left facet joint osteoarthritis. There is mild bilateral neural foraminal steno sis. There is mild central canal stenosis. C7-T1: There is a central protrusion. There is no uncovertebral joint osteoarthritis. There is severe bilateral facet joint osteoarthritis. There is mild bilateral neural foraminal stenosis. There is no central canal stenosis. IMPRESSION: 1. Moderate cervical spondylosis. Reviewed, dictated and finalized at location [facility].
--- NOTE | ~2024-03-13 | XR_ITS ---
XR cervical spine 4-5V Ordering provider: Fletcher Dockery MD History: . M54.12 - Radiculopathy, cervical region . Comparison: None. FINDINGS: VERTEBRAL BODIES: Normal height and alignment. Minimal anteroposterior displacement is seen at the le bennie of C4-C5 No visible fracture or subluxation. The dens is intact. DISK SPACES: Narrowing of the disc spaces C5-C6 and C6-C7. Multilevel facet joint disease. PARASPINOUS SOFT TISSUES: No prevertebral soft tissue swelling. IMPRESSION: No acute osseous abnormality cervical spine. . Reviewed, dictated and finalized at location [facility].
--- NOTE | ~2024-03-13 | XR_ITS ---
XR shoulder LT min 2V Ordering provider: Fletcher Dockery MD History: . M54.12 - Radiculopathy, cervical region . Comparison: None. FINDINGS: BONES: No acute fracture or dislocation. Degenerative changes in the area of the greater tuberosity. Small bony infarct in the humeral head is noted. No JOINT SPACES: The acromioclavicular joint is normal. The glenohumeral joint is normal. SOFT TISSUES: Normal. IMPRESSION: No acute osseous abnormality left shoulder. Consider MRI of the shoulder if there is concern for soft tissue internal derangement. Reviewed, dictated and finalized at location [facility]. IMPRESSION: No acute osseous abnormality left shoulder. Consider MRI of the shoulder if there is concern for soft tissue internal deran gement.
== END 2024-03-13 14:29 | disposition home or self-care (01) ==
PROVIDERS: PCP Chiropractor; Visit Provider Family Medicine
DX: M06.9 Rheumatoid arthritis, unspecified (principal); M54.12 Radiculopathy, cervical region
CPT/HCPCS: 72050; 72141; 73030

== ENCOUNTER 2024-06-27 05:18 | Emergency (ER) | payer BC, SELFPAY ==
--- NOTE | ~2024-06-27 | XR_ITS ---
EXAMINATION: XR shoulder LT min 2V DATE: 06/27/2024 06:55 INDICATION: Left shoulder pain. TECHNIQUE: 3 views of left shoulder were obtained. COMPARISON: Left shoulder radiographs 03/13/2024 FINDINGS: Alignment is normal. No fracture. There is mild osteoarthritis of glenohumeral joint and ac romioclavicular joint. IMPRESSION: 1. Mild polyarticular osteoarthritis. Reviewed, dictated and finalized at location A.
--- OUTSIDE RECORDS SUMMARY | 2024-06-27 05:21 | XMS_ITS | Clinical Summary ---
Author Organization [facility] Care Team Providers Care Escrow Officer Name Role Phone Unavailable Primary Care Provider Unavailabl e Social History Tobacco Use Types Packs/Day Years Used Date Smoking Tobacco: Never Assessed Comments Unknown Sex and Gender Information Value Date Recorded Sex Assigned at Not on file Legal Sex Female 3:41 PM INHALATION THERAPIST Gender Identity Not on file Sexual Orientation Not on file Plan of Treatment Health Maintenance Due Date Last Done Comments Hepatitis C Virus (HCV) Screening 1962 TdaP Immunization 1962 Pap Smear 1983 Cervical Cancer Screening (CCS) 1992 HPV/Cotest 1992 Colonoscopy 2007 Colorectal Cancer Screening 2007 Cologuard 2012 Immunochemical Fecal Occult Blood 2012 Mammogram 2012 Pneumococcal Immunization (50+ years) (1 of 1 - PCV) 2012 Zoster Immunization (1 of 2) 2012 Influenza Immunization (#1) 01/13/20240 11/2018, 03/04/2018, 03/19/2016, Additional history exists SARS-COV-2 Immunization (2023- season) 2024 Respiratory Syncytial Virus (RSV) Immunization (Adult) (1 - 1-dose 75+ series) 2037 Hepatitis B Immunization Aged Out No longer eligible based on patient's age to complete this topic Meningococcal Immunization (ACWY) Aged Out No longer eligible based on patient's age to complete this topic Pneumococcal Immunization Combined Aged Out No longer eligible based on patient's age to complete this topic Rotavirus Immunization Aged Out No lo nger eligible based on patient's age to complete this topic
--- OUTSIDE RECORDS SUMMARY | 2024-06-27 05:21 | XMS_ITS | Encounter Summary ---
Author Organization [employer] Address [address] [place] [address] Care Team Providers Care Controller Operations And Hr Manager Name Role Phone Ivanna Grigsby MD Primary Care Provider [phone] Encounter Details Date Type Department Care Team (Late st Contact Info) Description 12/02/2007 Outpatient Historical [facility], [address] Lo Shelley MD [address] [facility] [address], [place] [address] Urinary Tract Infection, Site not Specified Social History Tobacco Use Types Packs/Day Years Used Date Smoking Tobacco: Never Assessed Comments Unknown Sex and Gender Information Value Date Recorded Sex Assigned at Not on file Legal Sex Female 3:41 AM PSYCH THERAPIST Gender Identity Not on file Sexual Orientation Not on file documented as of this encounter Plan of Treatment Not on file documented as of this encounter Procedures Procedure Name Priority Date/Time Associated Diagnosis Comments URINE CULTURE Routine 12/02/2007 5:59 PM CDT documented in this encounter Results * URINE CULTURE (12/02/2007 5:59 PM CDT) PRELIMINARY REPORT Pending [facility] FINAL REPORT No growth 24 hours -- Faxed report(s): [phone] 12/03/07 5:12:[address] [facility] 12/02/2007 5:59 PM CDT 12/02/2007 7:[address] [facility] - 12/03/2007 5:12 PM CDT fax [phone] us Lo Shelley MD MICROBIOLOGY - GENERAL ORDERABLES Final Result [facility] CLIA# [id number] [address] [place] [address] documented in this encounter Visit Diagnoses Diagnosis Urinary tract infection, site not specified documented in this encounter Care Teams Controller Operations And Hr Manager Relationship Specialty Start Date End Date Ivanna Grigsby MD [address] [facility] DIV IM RHEUMATOLOGY, [address] [address] PCP - General Rheumatology 09/11/11 documented as of this encounter
--- OUTSIDE RECORDS SUMMARY | 2024-06-27 05:21 | XMS_ITS | Patient Health Summary ---
Author Organization [facility] Address [address] [facility] [place] [address] Care Team Providers Care House Nurse Name Role Phone Fletcher Dockery MD Primary Care Provider [phone] Note from [facility],non-owned Affiliates and Associated Physician Practices is amultiple site organization consisting of ambulatory clinics and hospital sitesin [place], [place] and [place]. This disclosure is being madepursuant to the Care Everywhere program and may not contain all information available regarding this patient. Last updated 18.[facility] Allergies * Codeine(Itching,Other) -Low Criticality * Fentanyl(Headache,Nausea and/or Vomiting) -Low Criticality * Sulfa Drugs(Headache,Other,Unknown) -Low Criticality Medications * Be aware that medications may not be up to date on this document. Alwaysverify current medications with the patient. * Humira, 2 Pen, 40 MG/0.4ML injection(Started 02/06/2024) Inject 0.4 mL subcutaneously every 14 days * buPROPion XL 24hr (Wellbutrin-XL) 150 MG tablet(Started 01/18/2023) Take 1 (one) tablet by mouth every morning * escitalopram (Lexapro) 10 MG tablet(Started 04/23/2024) Take 1 (one) tablet by mouth once daily * methotrexate 2.5 MG tablet(Started 04/21/2024) Take 8 (eight) tablets by mouth every 7 days * Myrbetriq 25 MG tablet(Started 10/23/2023) Take 1 (one) tablet by mouth once daily * pantoprazole EC (Protonix) 40 MG tablet(Started 04/06/2024) 1 (one) tablet once daily * traZODone (Desyrel) 100 MG tablet(Started 05/21/2024) Take 1 (one) tablet by mouth at bedtime * amoxicillin (Amoxil) 500 MG capsule(Started 05/01/2024) Take 1 (one) capsule by mouth 2 times daily * folic acid (Folvite) 1 MG tablet Take 1 (one) tablet by mouth once daily * tirzepatide (Zepbound) 5 MG/0.5ML injection Inject 5 (five) mg subcutaneously every 7 days Takes on * aspirin (Aspirin) 81 MG chew tablet(Started 06/26/2024) Take 1 (one) tablet by mouth once daily * acetaminophen (Tylenol) 500 MG tablet(Started 06/26/2024) Take 2 (two) tablets by mouth 3 times daily Maximum allowable Acetaminophen amount = 4 Grams (4000 mg) / 24 hours. * hydrOXYzine HCl (Atarax) 50 MG tablet(Started 06/26/2024) Take 1 (one) tablet by mouth 4 times daily as needed for Itching * oxyCODONE, immediate release, (Roxicodone) 5 MG tablet(Started 06/26/2024) Take 1 (one) tablet to 2 (two) tablets by mouth every 4 hours as needed for Pain (Moderate or Severe Pain) Ended Medications* diclofenac sodium EC (Voltaren) 75 MG tablet(Started 03/05/2024)(Discontinued) Take 1 (one) tablet by mouth once daily * HYDROcodone-acetaminophen (Bell) 5-325 MG tablet(Discontinued) Take 1 (one) tablet by mouth every 6 hours as needed for Pain * oxyCODONE, immediate release, (Roxicodone) 5 MG tablet(Started 06/26/2024) (Discontinued) Take 1 (one) tablet to 2 (two) tablets by mouth every 4 hours as needed for Pain (Moderate or Severe Pain) Active Problems Problem Noted Date Diagnosed Date Deformity of breast 06/03/2024 Arthritis 06/03/2024 Seasonal allergies 06/03/2024 Foraminal stenosis of cervical region 04/21/2024 Rotator cuff tear arthropathy of left shoulder 1 06/22/2023 Diarrhea due to drug 02/06/2024 Acute pain of left shoulder 12/25/2022 S/P spinal fusion 02/21/2022 Degenerative scoliosis 01/18/2022 Spinal stenosis of lumbar region with radiculopa thy 01/18/2022 Acquired trigger finger of both ring fingers 09/2020 COVID-19 virus infection 08/16/2020 Carbuncle of nasal septum 12/29/2019 Radial styloid tenosynovitis (de quervain) 05/26 Pelvic floor dysfunction in female 03/11/2018 Anxiety 10/29/2017 Rheumatoid arthritis involvi ng multiple sites with positive rheumatoid factor 10/29/2017 Obstructive sleep apnea syndrome 04/13/2016 Hypertrophy of nasal turbinates 01/21/2016 Postmenopausal status 06/14/2015 Recurrent sinusitis 11/06/2014 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 09/01/2013 PTSD (post-traumatic stress disorder) 08/11/2013 Acute midline low back pain without sciatica High risk medications (not anticoagulants) long- term use 12/04/2011 Malignant neoplasm of breast 02/16/2011 Resolved Problems Problem Noted Date Diagnosed Date Resolved Date Upper respiratory infection 06/24/2012 06/17/2024 Social History Tobacco Use Types Packs/Day Years Used Date Smoking Tobacco: Never Smokeless Tobacco: Never Tobacco Cessation:Counseling Given: Not Answered Alcohol Use Standard Drinks/Week Comments Yes 0 (1 standard drink = 0.6 oz pur e alcohol) socially AUDIT-C Answer Date Recorded Q1: How often do you have a drink containing alc ohol? 2-3 times a week 06/26/2024 Q2: How many drinks containi ng alcohol do you have on a typical day when you are drinking? 3 or 4 06/26/2024 Q3: How often do you have si x or more drinks on one occasion? Monthly 06/26/2024 PHQ-2 Answer Date Recorded Patient Health Questionnaire-2 Score 1 06/03/2024 Sex and Gender Information Value Date Recorded Sex Assigned at Not on file Gender Identity Not on file Sexual Orientation Not on file Last Filed Vital Signs Vital Sign Reading Time Taken Comments Blood Pressure 146/84 06/26/2024 11:51 AM CLINICAL EDUCATION MANAGER Pulse 78 06/26/2024 12:01 PM CLINICAL EDUCATION MANAGER Temperature 36 C (96.8 F) 06/26/2024 10:58 AM CLINICAL EDUCATION MANAGER Respiratory Rate 14 06/26/2024 12:01 PM CLINICAL EDUCATION MANAGER Oxygen Saturation 94% 06/26/2024 12:01 PM CLINICAL EDUCATION MANAGER Inhaled Oxygen Concentration - - Weight 65.6 kg (144 lb 9.6 oz) 06/26/2024 7:35 A M CLINICAL EDUCATION MANAGER Height 154.9 cm (5' 1 ) 06/11/2024 8:55 AM CLINICAL EDUCATION MANAGER Body Mass Index 27.32 06/11/2024 8:55 AM CLINICAL EDUCATION MANAGER Medical Devices Implanted Type Area Sales Forecast Analyst Device Identifier Shelf Expiration Date Model / Serial / Lot Sys Impl Kntls Fibertape Speedbridge Implanted:Qty: 1 on 06/26/2024 by Estefanía Espinoza MD at [facility] Left: Shoulder [employer] 03/13/2028 [id number] -2 / / [id number] Ericson Sut Fibertak Kntls Slf Pnch 2.6mm Implanted:Qty: 1 on 06/26/2024 by Estefanía Espinoza MD at [facility] Left: Shoulder [employer] 03/13/2029 [id number] / / [id number] Procedures * PERIPHERAL BLOCK(Performed 06/26/2024) * PERIPHERAL BLOCK(Performed 06/26/2024) * ENDOTRACHEAL TUBE NOTE(Performed 06/26/2024) * XR SHOULDER RIGHT 2VW OR MORE(Performed 2024) Performed for Chronic right shoulder pain * XR SHOULDER LEFT 2VW OR MORE(Performed 06/03/2024) Performed for Chronic left shoulder pain Results * Peripheral Nerve Block (06/26/2024 10:50 AM [facility]) Narrative Alessia Mayfield DO - 06/26/2024 10:50 AM Alessia Paiz DO 06/26/2024 10:51 AM Peripheral Nerve Block Procedure: Peripheral Nerve Block Patient Location: Pre-op Preprocedure Section: Indications: at surgeon's request, at patient's request, postop pain management and surgical anesthesia. Pre-anesthetic Checklist: Patient identified, IV Checked, Site examined and clear, Risks and benefits discussed, Surgical consent verified, Monitors and equipment, Time-out performed, Informed consent obtained, Pre-op evaluation done, Questions answered/anesthesia questions answered, Allergies reviewed and Removal hand/wrist jewelry Monitors: BP, Pulse Ox and EKG. Patient Condition: sedated, meaningful contact maintained throughout procedure Patient Position: sitting Patient Sedated? Yes Sedation Type: mild Procedure Section Laterality: left Block Performed: Other- please comment (intercostobrachial) Prep: Chloraprep Strerile Field: mask, hat/cap and gloves Skin localized with: lidocaine (XYLOCAINE) 1 % injection - Infiltration 1 mL - 06/26/2024 8:24:00 AM Needle Type: Echogenic insulated Needle Gauge: 22 Needle Length: 50 mm Catheter? No Injection was made incrementally with constant monitoring and aspirations every 5 mL's Injection Assessment: Slow fractionated injection Block Agents or Additives used? Yes Block agents used: bupivacaine 0.5% - EPINEPHrine 1:200,000 (PF) injection - Infiltration 5 mL - 06/26/2024 8:24:00 AM Procedure Tolerance: tolerated well, performed while the patient was sedated and no immediate complications Assessment: completed Staff Section Anesthesia Provider: Alessia Mayfield DO, Performed the procedure Additional Comments: Slow infiltration done after aspiration, a subcutaneous injection directed inferiorly near the axillary crease. Patient mildly sedated and tolerated well. . Alessia Mayfield DO GENERAL ANESTHESIA O RDERABLES * Peripheral Nerve Block (06/26/2024 10:49 AM CLINICAL EDUCATION MANAGER) Narrative Alessia Mayfield DO - 06/26/2024 10:49 AM CLINICAL EDUCATION MANAGER Alessia aMyfield DO 06/26/2024 10:50 AM Peripheral Nerve Block Procedure: Peripheral Nerve Block Patient Location: Pre-op Preprocedure Section: Indications: at surgeon's request, at patient's request, postop pain management and surgical anesthesia. Pre-anesthetic Checklist: Patient identified, IV Checked, Site examined and clear, Risks and benefits discussed, Surgical consent verified, Monitors and equipment, Time-out performed, Informed consent obtained, Pre-op evaluation done, Questions answered/anesthesia questions answered, Allergies reviewed and Removal hand/wrist jewelry Monitors: EKG, Pulse Ox and BP. Patient Condition: sedated, meaningful contact maintained throughout procedure Patient Position: sitting Patient Sedated? Yes Sedation Type: mild Procedure Section Laterality: left Block Performed: interscalene Prep: Chloraprep Strerile Field: gloves, hat/cap and mask Skin localized with: lidocaine (XYLOCAINE) 1 % injection - Infiltration 1 mL - 06/26/2024 8:20:00 AM Needle Type: Echogenic insulated Needle Gauge: 22 Needle Length: 50 mm Catheter? No Ultrasound Guided? Yes Technique: in plane Visualization: Preliminary scan performed, Important anatomical structures identified, Needle tip visualized throughout the procedure, Target identified, No intraneural or intravascular puncture occurred, Ultrasound image in chart, Local visualized surrounding nerve on ultrasound and Hydrodissection utilized Injection was made incrementally with constant monitoring and aspirations every 5 mL's Injection Assessment: Slow fractionated injection Block Agents or Additives used? Yes Block agents used: bupivacaine 0.5% - EPINEPHrine 1:200,000 (PF) injection - Perineural 20 mL - 06/26/2024 8:20:00 AM Procedure Tolerance: tolerated well, performed while the patient was sedated and no immediate complications Assessment: completed Staff Section Anesthesia Provider: Alessia Mayfield DO, Performed the procedure Alessia Mayfield DO GENERAL ANESTHESIA O RDERABLES * ETT LINE PERFORMABLE (06/26/2024 8:59 AM CLINICAL EDUCATION MANAGER) Narrative Elvia Salinas APRN-CRNA - 06/26/2024 8:59 AM CLINICAL EDUCATION MANAGER Elvia Salinas APRN-CRNA 06/26/2024 9:03 AM Endotracheal Tube Placement: Patient Location: OR. Intubation Event Date/Time: 06/26/2024 8:53 AM Procedure: intubation (98870) Procedure Section: Sedation: under general anesthesia. Indications for Airway Management: anesthesia Induction: modified rapid sequence Patient Position: sniffing Mask Ventilation: easy. Blade Type: Binu Blade Size: 3 Laryngoscopy View: grade 1 (full cords) Intubation Adjuncts: stylet Tube: endotracheal tube Placement: oral Tube type: cuff - inflated Tube Size (MM): 7 Depth of Insertion (CM): 21 Measured From: teeth Cuff volume (mL): 7 Cuff Inflated With: air Number of Attempts: 1. Placement Verified By: direct visualization, bilateral breath sounds, chest auscultation and CO2 monitor Tube secured with: adhesive tape. Dentition unchanged? Yes Difficult Airway? No. Procedure Start Time: 06/26/2024 8:53 AM. Staff Section Anesthesia Provider: Elvia Salinas APRN-CRNA, Performed the procedure Alessia B Dhanak DO GENERAL ANESTHESIA O RDERABLES * XR Shoulder Right 2Vw or More (2024 3:46 PM CLINICAL EDUCATION MANAGER) Narrative [facility] [address] - 2024 3:47 PM CLINICAL EDUCATION MANAGER Please see progress note in Epic for results. Estefanía Espinoza MD DIAGNOSTIC IMAGING ORDERABLES Performing Organization Address [facility] Co de Phone Number [facility] [address] * XR Shoulder Left 2Vw or More (06/03/2024 10:57 AM CLINICAL EDUCATION MANAGER) Narrative [facility] [address] - 06/03/2024 10:57 AM CLINICAL EDUCATION MANAGER Please see progress note in Epic for results. Meagan Quiñones PA-C DIAGNOSTIC IMAGING O RDERABLES Performing Organization Address [facility] Co de Phone Number [facility] [address] Care Teams House Nurse Relationship Specialty Start Date End Date Fletcher Dockery MD [address] [place] [phone] PCP - General Family Medicine 06/03/24
--- OUTSIDE RECORDS SUMMARY | 2024-06-27 05:21 | XMS_ITS | Encounter Summary ---
Author Organization [facility] Address [address] [facility] [place] [address] Care Team Providers Care Light Rail Transit Operator Name Role Phone Fletcher Dockery MD Primary Care Provider [phone] Reason for Visit * Reason Onset Date Comments MEDICATION REFILL 06/26/2024 Encounter Details Date Type Department Care Team (Late st Contact Info) Description 06/26/2024 Refill [facility] Orth[facility] [address] [place] [phone] [place]ef[place]ía [place] [address] [address] MEDICATION REFILL Social History Tobacco Use Types Packs/Day Years Used Date Smoking Tobacco: Never Smokeless Tobacco: Never Alcohol Use Standard Drinks/Week Comments Yes 0 [...] on file documented as of this encounter Miscellaneous Notes * Telephone Encounter - Bruna Flores, Licensed Woodworking Shop Laborer - 06/26/2024 1:39 PM CST Patients daughter states the oxycodone is not available at original pharmacy. I called pharmacy to cancel and am sending to new pharmacy daughter spoke with that said they had it in stock. PRINTER documented in this encounter Plan of Treatment Not on file documented as of this encounter Visit Diagnoses Diagnosis S/P rotator cuff repair Other postprocedural status documented in this encounter Care Teams Light Rail Transit Operator Relationship Specialty Start Date End Date Fletcher Dockery MD [address] [place] [phone] PCP - General Family Medicine 06/03/24 documented as of this encounter
--- OUTSIDE RECORDS SUMMARY | 2024-06-27 05:21 | XMS_ITS | Encounter Summary ---
Author Organization [facility] Address [address] [place] [address] Care Team Providers Care Funeral Car Chauffeur Name Role Phone Ivanna Grigsby MD Primary Care Provider [phone] Encounter Details Date Type Department Care Team (Latest Contact Info) Description 04/08/1999 Outpatient Historical [facility] Santiago Kruse MD [address] [place] [id number] Fibrosclerosis of breast (Primary Dx) Social History Tobacco Use Types Packs/Day Years Used Date Smoking Tobacco: Never Assessed Comments Unknown Sex and Gender Information Value Date Recorded Sex Assigned at Not on file Legal Sex Female 3:41 AM PORTABLE MACHINE CUTTER Gender Identity Not on file Sexual Orientation Not on file documented as of this encounter Plan of Treatment Not on file documented as of this encounter Visit Diagnoses Diagnosis Fibrosclerosis of breast- Primary documented in this encounter Care Teams Funeral Car Chauffeur Relationship Specialty Start Date End Date Ivanna Grigsby MD [address] [facility] DIV IM RHEUMATOLOGY, [address] [phone] PCP - General Rheumatology 09/11/11 documented as of this encounter
--- OUTSIDE RECORDS SUMMARY | 2024-06-27 05:21 | XMS_ITS | Encounter Summary ---
Author Organization [employer] Address [address] [place] [address] Care Team Providers Care Supervisor Customer Complaint Service Name Role Phone Ivanna Grigsby MD Primary Care Provider [phone] Encounter Details Date Type Department Care Team (Latest Contact Info) Description 07/28/2002 Outpatient Historical [facility] PATIENT IN A BED Santiago Kruse MD [address] [place] [id number] DEVIATED NASAL SEPTUM (Primary Dx) Social History Tobacco Use Types Packs/Day Years Used Date Smoking Tobacco: Never Assessed Comments Unknown Sex and Gender Information Value Date Recorded Sex Assigned at Not on file Legal Sex Female 3:41 AM PACKER Gender Identity Not on file Sexual Orientation Not on file documented as of this encounter Plan of Treatment Not on file documented as of this encounter Visit Diagnoses Diagnosis Deviated nasal septum- Primary documented in this encounter Care Teams Supervisor Customer Complaint Service Relationship Specialty Start Date End Date Ivanna Grigsby MD [address] [facility] DIV IM RHEUMATOLOGY, [address] [phone] PCP - General Rheumatology 09/11/11 documented as of this encounter
--- OUTSIDE RECORDS SUMMARY | 2024-06-27 05:21 | XMS_ITS | Encounter Summary ---
Author Organization [facility] Address [address] [facility] [place] [address] Care Team Providers Care Structural Draftsman Name Role Phone Fletcher Dockery MD Primary Care Provider [phone] Reason for Visit * Reason Onset Date Comments Med Question 06/26/2024 Encounter Details Date Type Department Care Team (Late st Contact Info) Description 06/26/2024 Telephone [facility] Orthopedics [id number] [place] [phone] Estefanía [place] [address] [address] Med Question Social History Tobacco Use Types Packs/Day Years [...] * Telephone Encounter - Bruna Flores, Licensed Nursing Specialist - 06/26/2024 1:43 PM CST Spoke with patient's daughter and let her know that we are sending over new prescription and to keep an eye out from pharmacy on when it will be ready. SCIENCE TECHNICIAN * Telephone Encounter - Emma Ibrahim - 06/26/2024 1:30 PM CST Who is calling? Daughter Jarrod If other than self is caller listed on the HIPAA? yes What is the reason for call? Called to state that medication Oxycodone 5 MG is not available at patient's pharmacy in [facility]. Caller states that medication is available at [place] [address] and provided phone number [phone]. Did not have a fax number to provide Expected Response from the Clinic? ( ex. Call back, etc..) please submit prescription Did you notify caller it would take 24-48 hours for the office to get back to them? YES SCIENCE TECHNICIAN documented in this encounter Plan of Treatment Not on file documented as of this encounter Visit Diagnoses Not on filedocumented in this encounter Care Teams Structural Draftsman Relationship Specialty Start Date End Date Fletcher Dockery MD [address] [place] [phone] PCP - General Family Medicine 06/03/24 documented as of this encounter
--- OUTSIDE RECORDS SUMMARY | 2024-06-27 05:21 | XMS_ITS | Encounter Summary ---
Author Organization [employer] Address [address] [place] [address] Care Team Providers Care Sound Equipment Mechanic Name Role Phone Ivanna Grigsby MD Primary Care Provider [phone] Encounter Details Date Type Department Care Team (Latest Contact Info) Description 10/28/1998 Outpatient Historical [facility] Santiago Kruse MD [address] [place] [id number] Carpal tunnel syndrome (Primary Dx) Social History Tobacco Use Types Packs/Day Years Used Date Smoking Tobacco: Never Assessed Comments Unknown Sex and Gender Information Value Date Recorded Sex Assigned at Not on file Legal Sex Female 3:41 AM ALUMINA REFINERY OPERATOR Gender Identity Not on file Sexual Orientation Not on file documented as of this encounter Plan of Treatment Not on file documented as of this encounter Visit Diagnoses Diagnosis Carpal tunnel syndrome- Primary documented in this encounter Care Teams Sound Equipment Mechanic Relationship Specialty Start Date End Date Ivanna Grigsby MD [address] [facility], [address] [phone] PCP - General Rheumatology 09/11/11 documented as of this encounter
--- OUTSIDE RECORDS SUMMARY | 2024-06-27 05:21 | XMS_ITS | Referral Summary ---
Author Organization [facility] Address [address] [place] [address] Care Team Providers Care Security Rep Name Role Phone Fletcher Dockery MD Primary Care Provider [phone] Source Comments [facility],non-owned Affiliates and Associated Physician Practices is amultiple site organization consisting of ambulatory clinics and hospital sitesin [place], [place], [place] and [place]. This disclosure is being madepursuant to the Care Everywhere program and may not contain all information available regarding this patient. Last updated 18.[facility] Encounters Date Type Department Care Team Description 06/26/[address], [address] [place] [phone] Estefanía Espinoza MD MEDICATION REFILL 06/26/2024 Telephone [facility] [address] [place] [address], [facility] [address] [place] [address] Estefanía Espinoza MD Med Question 06/26/2024 Travel 06/26/2024 8:46 AM GRIPPER ATTACHER Anesthesia Event [facility] - General Surgery [address] [place] [address], [address] [place] [address] Alessia Mayfield, Elvia Capellan, ELISEO-TRAFFIC SURVEY TECHNICIAN 06/26/2024 9:00 AM GRIPPER ATTACHER - 06/26/2024 11:10 AM GRIPPER ATTACHER Surgery [facility] General Surgery [id number] [place] [address], [address] [place] [address] Estefanía Espinoza MD LEFT SHOULDER ARTHROSCOPY, DECOMPRESSION 06/26/2024 7:27 AM GRIPPER ATTACHER - 06/26/2024 11:59 PM GRIPPER ATTACHER Hospital Encounter [facility] - General Surgery [address] [facility], [address] [place] [address] Estefanía Espinoza MD Surgery General Discharge Disposition: Home or Self Care 2024 3:45 PM GRIPPER ATTACHER Ancillary Procedure [facility] - Radiology [address] [place] [phone] Estefanía Espinoza MD Chronic right shoulder pain 2024 3:20 PM GRIPPER ATTACHER Office Visit [facility] [address] [place] [address], [address] [place] [phone] Estefanía Espinoza MD Chronic left shoulder pain (Primary Dx); Nontraumatic complete tear of left rotator cuff; Chronic right shoulder pain; Tendinitis of right rotator cuff; Rheumatoid arthritis involving multiple sites, unspecified whether rheumatoid factor present (HCC) 06/11/2024 Travel 06/11/2024 8:34 AM GRIPPER ATTACHER - 06/11/2024 11:59 PM GRIPPER ATTACHER Hospital Encounter [facility] [address] [facility] [address] [place] [address] Estefanía Espinoza MD Discharge Disposition: Home or Self Care 06/05/2024 Travel 06/03/2024 Telephone [facility] [address] [place] [address], [address] [place] [phone] Estefanía Espinoza MD Patient Requested Call (Patient called in to confirm that 06/26 will be a good date for sx for her . She will like a call back to confirm that you all got her reply /) 06/03/2024 Telephone [facility] [id number] [place] [address], [address] [place] [phone] Estefanía Espinoza MD Question 06/03/2024 10:45 AM GRIPPER ATTACHER Ancillary Procedure [facility] - Radiology [address] [place] [address] Meagan Quiñones PA-C Chronic left shoulder pain 06/03/2024 10:30 AM GRIPPER ATTACHER Office Visit [facility] [address] [place] [address] [phone] Meagan Quiñones PA-C Nontraumatic complete tear of left rotator cuff (Primary Dx); Chronic left shoulder pain from Last 3 Months Allergies Active Allergy Reactions Criticality Noted Date Comments Codeine Itching,Other Low 08/27/2009 Reaction: Other Fentanyl Headache,Nausea and/ or Vomiting Low 08/27/2009 Sulfa Drugs Headache,Other,Unknown Low 08/27/2009 Hx rheumatoid arthritis Medications * Be aware that medications may not be up to date on this document. Alwaysverify current medications with the patient. Medication Sig Dispensed Refills Start Date End Date Status Humira, 2 Pen, 40 MG/0.4ML injection Inject 0.4 mL subcutaneously every 14 days 02/06/2024 Active buPROPion XL 24hr (Wellbutrin-XL) 150 MG tablet Take 1 (one) tablet by mouth every morning 01/18/2023 Active escitalopram (Lexapro) 10 MG tablet Take 1 (one) tablet by mouth once daily 04/23/2024 Active methotrexate 2.5 MG tablet Take 8 (eight) tablets by mouth every 7 days 04/21/2024 Active Myrbetriq 25 MG tablet Take 1 (one) tablet by mouth once daily 10/23/2023 Active pantoprazole EC (Protonix) 40 MG tablet 1 (one) tablet once daily 04/06/2024 Active traZODone (Desyrel) 100 MG tablet Take 1 (one) tablet by mouth at bedtime 05/21/2024 Active amoxicillin (Amoxil) 500 MG capsule Take 1 (one) capsule by mouth 2 times daily 05/01/2024 Active folic acid (Folvite) 1 MG tablet Take 1 (one) tablet by mouth once daily Active tirzepatide (Zepbound) 5 MG/0.5ML injection Inject 5 (five) mg subcutaneously every 7 days Takes on Active aspirin (Aspirin) 81 MG chew tablet Take 1 (one) tablet by mouth once daily 21 tablet 06/26/2024 Active acetaminophen (Tylenol) 500 MG tablet Take 2 (two) tablets by mouth 3 times daily Maximum allowable Acetaminophen amount = 4 Grams (4000 mg) / 24 hours. 06/26/2024 Active hydrOXYzine HCl (Atarax) 50 MG tablet Take 1 (one) tablet by mouth 4 times daily as needed for Itching 28 tablet 06/26/2024 Active oxyCODONE, immediate release, (Roxicodone) 5 MG tabletIndication s:S/P rotator cuff repair Take 1 (one) tablet to 2 (two) tablets by mouth every 4 hours as needed for Pain (Moderate or Severe Pain) 42 tablet 06/26/2024 Active diclofenac sodium EC (Voltaren) 75 MG tablet Take 1 (one) tablet by mouth once daily 03/05/2024 5 Discontinue d(Clinical Decision) HYDROcodone-acet aminophen (Windthorst) 5-325 MG tablet Take 1 (one) tablet by mouth every 6 hours as needed for Pain 5 Discontinue d(Clinical Decision) oxyCODONE, immediate release, (Roxicodone) 5 MG tabletIndication s:S/P rotator cuff repair Take 1 (one) tablet to 2 (two) tablets by mouth every 4 hours as needed for Pain (Moderate or Severe Pain) 42 tablet 06/26/2024 5 Discontinue d(Reorder) Hospital, Clinic, or Other Facility Administered Medication Ordered Dose Route Frequency Start Date End Date Status triamcinolone acetonide (Kenalog-40) injection 40 mgIndications:Chronic right shoulder pain,Tendinitis of right rotator cuff 40 mg IX ONCE 2024 2024 Ended lidocaine PF (Xylocaine MPF) 1 % injection 3 mLIndications:Chronic right shoulder pain,Tendinitis of right rotator cuff 3 mL IX ONCE 2024 2024 Ended Active Problems Problem Noted Date Diagnosed Date Deformity of breast 06/03/2024 Arthritis 06/03/2024 Seasonal allergies 06/03/2024 Foraminal stenosis of cervical region 04/21/2024 Rotator cuff tear arthropathy of left shoulder 1 06/22/2023 Diarrhea due to drug 02/06/2024 Acute pain of left shoulder 12/25/2022 S/P spinal fusion 02/21/2022 Degenerative scoliosis 01/18/2022 Overview (06/03/2024): Added automatically from request for surgery [id number] Spinal stenosis of lumbar region with radiculopa thy 01/18/2022 Overview (06/03/2024): Added automatically from request for surgery [id number] Acquired trigger finger of both ring fingers 09/2020 COVID-19 virus infection 08/16/2020 Carbuncle of nasal septum 12/29/2019 Radial styloid tenosynovitis (de quervain) 05/26 Pelvic floor dysfunction in female 03/11/2018 Anxiety 10/29/2017 Rheumatoid arthritis involvi ng multiple sites with positive rheumatoid factor 10/29/2017 Obstructive sleep apnea syndrome 04/13/2016 Overview (06/03/2024): Obstructive sleep apnea Hypertrophy of nasal turbinates 01/21/2016 Postmenopausal status [...] Comments Blood Pressure 146/84 06/26/2024 11:51 AM GRIPPER ATTACHER Pulse 78 06/26/2024 12:01 PM GRIPPER ATTACHER Temperature 36 C (96.8 F) 06/26/2024 10:58 AM GRIPPER ATTACHER Respiratory Rate 14 06/26/2024 12:01 PM GRIPPER ATTACHER Oxygen Saturation 94% 06/26/2024 12:01 PM GRIPPER ATTACHER Inhaled Oxygen Concentration - - Weight 65.6 kg (144 lb 9.6 oz) 06/26/2024 7:35 A M GRIPPER ATTACHER Height 154.9 cm (5' 1 ) 06/11/2024 8:55 AM GRIPPER ATTACHER Body Mass Index 27.32 06/11/2024 8:55 AM GRIPPER ATTACHER Plan of Treatment Not on file Medical Devices Implanted Type Area Sales Compensation Analyst Device Identifier Shelf Expiration Date Model / Serial / Lot Sys Impl Kntls Fibertape Speedbridge Implanted:Qty: 1 on 06/26/2024 by Estefanía Espinoza MD at [facility] Left: Shoulder [employer] 03/13/2028 [id number] -2 / / [id number] [place] Fibertak Kntls Slf Pnch 2.6mm Implanted:Qty: 1 on 06/26/2024 by Estefanía Espinoza MD at [facility] Left: Shoulder [employer] 03/13/2029 [id number] / / [id number] Procedures Procedure Name Priority Date/Time Associated Diagnosis Comments PERIPHERAL BLOCK Routine 06/26/2024 10:5 0 AM GRIPPER ATTACHER PERIPHERAL BLOCK Routine 06/26/2024 10:4 9 AM GRIPPER ATTACHER ENDOTRACHEAL TUBE NOTE Routine 06/26/2024 8:59 AM GRIPPER ATTACHER XR SHOULDER RIGHT 2VW OR MORE Routine 2024 3:46 PM GRIPPER ATTACHER Chronic right shoulder pain XR SHOULDER LEFT 2VW OR MORE Routine 06/03/2024 10:57 AM GRIPPER ATTACHER Chronic left shoulder pain from Last 3 Months Results * Peripheral Nerve Block (06/26/2024 10:50 AM GRIPPER ATTACHER) Narrative Alessia Mayfield DO - 06/26/2024 10:50 AM GRIPPER ATTACHER Alessia Mayfield DO 06/26/2024 10:51 AM Peripheral Nerve Block [...] * Peripheral Nerve Block (06/26/2024 10:49 AM GRIPPER ATTACHER) Narrative Alessia Mayfield DO - 06/26/2024 10:49 AM GRIPPER ATTACHER Alessia Mayfield DO 06/26/2024 10:50 AM Peripheral Nerve Block [...] * ETT LINE PERFORMABLE (06/26/2024 8:59 AM GRIPPER ATTACHER) Narrative Elvia Salinas APRN-CRNA - 06/26/2024 8:59 AM GRIPPER ATTACHER Elvia Salinas APRN-CRNA 06/26/2024 9:03 AM Endotracheal Tube Placement: Patient Location: OR. Intubation Event Date/Time: 06/26/2024 8:53 AM Procedure: intubation ([id number]) Procedure Section: Sedation: under general anesthesia. Indications [...] AM. Staff Section Anesthesia Provider: Elvia Salinas APRN-TRAFFIC SURVEY TECHNICIAN, Performed the procedure Alessia Mayfield DO GENERAL ANESTHESIA O RDERABLES * XR Shoulder Right 2Vw or More (2024 3:46 PM GRIPPER ATTACHER) Narrative [facility] [address] - 2024 3:47 PM GRIPPER ATTACHER Please see progress note in [email or web address] for results. Estefanía Espinoza MD DIAGNOSTIC IMAGING ORDERABLES Performing Organization Address [facility]/ZIP Co de Phone Number [facility] [address] * XR Shoulder Left 2Vw or More (06/03/2024 10:57 AM GRIPPER ATTACHER) Narrative [facility] [address] - 06/03/2024 10:57 AM GRIPPER ATTACHER Please see progress note in Epic for results. Meagan Quiñones PA-C DIAGNOSTIC IMAGING O RDERABLES Performing Organization Address [facility]/State/ZIP Co de Phone Number [facility] [address] from Last 3 Months Care Teams Security Rep Relationship Specialty Start Date End Date Fletcher Dockery MD [address] [place] [phone] PCP - General Family Medicine 06/03/24
--- OUTSIDE RECORDS SUMMARY | 2024-06-27 05:21 | XMS_ITS | Encounter Summary ---
Author Organization [facility] Address [address] [facility] [place] [address] Care Team Providers Care Medical Biller Coder Name Role Phone Fletcher Dockery MD Primary Care Provider [phone] Reason for Visit * Auth/Cert (Routine) Specialty Diagnoses / Procedures Referred By Christian t Referred To Contact Diagnoses Tear of left rotator cuff, unspecified tear extent, unspecified whether traumatic Tear of left rotator cuff, unspecified tear extent, unspecified whether traumatic [M75.102] Procedures ME SHOULDER ARTHROSCOPY ME SCOPE SHLDR SURG;W/ROTOR CUFF ME ARTHROSCOPY BICEPS TENODESIS ME SHOULDER ARTHROSCOPY ARTHROSCOPY SHOULDER ARTHROSCOPY SHOULDER ROTATOR CUFF REPAIR (RCR) ARTHROSCOPY SHOULDER BICEP TENODESIS ARTHROSCOPY SHOULDER DISTAL CLAVICULECTOMY (LEDYA) Referral ID Status Reason Start Date Expiration Date Visits Re quested Visits Authorized [id number] 1 1 Encounter Details Date Type Department Care Team (Late st Contact Info) Description 06/26/2024 8:46 AM AMBULANCE ASSISTANT Anesthesia Event [facility] - General Surgery [id number] [place] [address], [address] [place] [address] Alessia Mayfield, DO [address] [place] [address] Elvia Salinas APRN-PROPAGATOR [address] [address] [place] [address] Anesthesia Record Procedure Summary Procedure Name Responsible Anesthesiologist Anesthesia Start Time Anesthesia Stop Time LEFT SHOULDER ARTHROSCOPY, DECOMPRESSION (Left: Shoulder) Alessia Mayfield DO 06/26/24 0846 06/26/24 1058 Events Date Time Event Comment 06/26/2024 0759 0846 An Start 0847 An Start Data 0851 PT Reassessment 0852 An Induction 0853 An Intubation 0856 an vahid now 0915 Timeout Anesthesia part icipated in timeout at the time documented in the record by nursing. 1051 An Emergence 1053 Extubation 1055 Electnc Sig This record is electronically signed by the providers listed under staff. 1055 an stop data 1055 ANPTO2 1058 An Stop Meds Name Total midazolam 2 mg/2mL injection 2 mg lidocaine 1% (PF) injection (50 mg/5mL) 100 mg propofol 200 mg/20mL injection 220 mg succinylcholine (ANECTINE) 100 mg/5 mL i njection 100 mg glycopyrrolate 0.4 mg/2mL injection 0.2 mg ondansetron 4 mg/2mL injection 4 mg dexamethasone 4 mg/mL injection 4 mg ceFAZolin (Ancef) syringe 2,000 mg 2 g tranexamic acid (Cyklokapron) injection 1,000 mg 1,000 mg esmolol 100 mg/10mL injection 50 mg bupivacaine 0.5% - EPINEPHrine 1:200,000 (PF) injection 20 mL bupivacaine 0.5% - EPINEPHrine 1:200,000 (PF) injection 5 mL lidocaine (XYLOCAINE) 1 % injection 1 mL lidocaine (XYLOCAINE) 1 % injection 1 mL lactated ringers infusion 1,000 mL * Agents Name Exp. Sevoflurane Exp. N2O O2 Air Insp. Sevoflurane N2O * Blood No blood administrations on file. Lines, Drains, and Airways Type Details Placement Removal Procedural Site (Incision) 06/26/24; 914; Left; Shoulder; Arthroscopic 06/26/24 0915 by John Bradley, KUSH Peripheral IV Date: 06/26/24; Time : 0800; Orientation: Posterior, Right; Location: Hand; Gauge: 20 G 06/26/24 0800 by Shelia Bobo RN 06/26/24 1201 by Anitra Nicolas RN ETT Date: 06/26/24; Time : 0853; Placed By: BO oCnde; Vent: easy mask; Induction: Modified Rapid Sequence; Blade Type: Binu; Blade Size: 3; Laryngoscopy View: Grade 1 (full cords); Intubation Adjuncts: Stylet; Tube: Endotracheal Tube; Placement: Oral; Tube Type: Cuffed-inflated; Tube Size(mm): 7 MM; Depth of Insertion: 21 CM; Measured From: teeth; Attempts: 1; Cuff Infated: Air; Cuff Vol(mL): 7 mL; Verified By: Direct visualization, Bilateral breath sounds, Chest Auscultation, CO2 Monitor 06/26/24 0853 by Elvia Salinas APRN-CRNA 06/26/24 1053 by Elvia Salinas APRN-CRNA documented in this encounter Social History Tobacco Use Types Packs/Day Years [...] on file documented as of this encounter Progress Notes * Alessia Mayfield DO - 06/26/2024 7:56 AM CST Images from the original note were not included. ANESTHESIA PREOPERATIVE EVALUATION NOTE Procedure: LEFT SHOULDER ARTHROSCOPY, DECOMPRESSION (Left: Shoulder) LEFT SHOULDER ARTHOSCOPY, ROTATOR CUFF REPAIR (Left: Shoulder) LEFT SHOULDER ARTHROSCOPY, POSSIBLE BICEPS TENDOESIS (Left: Shoulder) LEFT SHOULDER ARTHROSCOPY DISTAL CLAVICAL EXCISION (Left: Shoulder) Vitals: No data found. LMP: No LMP recorded. OB Status: unknown ANESTHESIA PRE-EVALUATION NOTE The patient is a current non-smoker. Physical Exam: Orientation X3 Airway/Mallampati Score: I Mouth Opening Distance: 3 fingerwidths Neck ROM: full TM Distance: > 3 FB Teeth: normal Heart: normal - S1 S2 Lungs: clear to ausculation bilaterally Review of Systems: History of anesthetic complications: No Sleep Apnea Risk: Yes, CPAP - non compliant GERD: Yes, well controlled ANESTHESIA PLAN ASA Score: 2 NPO Status: No solids since midnight and No liquids within 2 hours Anesthesia Plan: general ETT and regional Nerve Blocks: Interscalene. Planned Induction: intravenous Planned Postop Destination: PACU Anesthetic plan was discussed with: patient Anesthetic Plan discussion was: Consented The patient's procedural Anesthetic Plan was discussed with the anesthesiologist and PROPAGATOR. Overall additional findings/comments: Discussed risks of block to include but not limited to bleeding, infection, nerve damage, and block failure. Discussed care with extremity following block given loss of sensation and motor function. Discussed length of time block is expected to last. Patient has had right mastecomy and lymph notes removed in 2010. She is ok with us placing distal PIV for short term use on that right hand. BP cuff will go on leg.. BMI, Height, Weight Tobacco History Estimated body mass index is 27.44 kg/m?? as calculated from the following: Height as of 06/11/24: 1.549 m (5' 1 ). Weight as of 06/11/24: 65.9 kg (145 lb 3.2 oz). Social History Tobacco Use Smoking Status Never Smokeless Tobacco Never Alcohol History Drug History Social History Substance and Sexual Activity Alcohol Use Yes Comment: socially Social History Substance and Sexual Activity Drug Use Yes Types: Marijuana Comment: edibles Outpatient Medications: Inpatient Medications: Outpatient Medications Marked as Taking for the 06/26/24 encounter (Hospital Encounter) Medication Sig Last Dose buPROPion XL 24hr Take 1 (one) tablet by mouth every morning 06/25/2024 escitalopram Take 1 (one) tablet by mouth once daily 06/25/2024 folic acid Take 1 (one) tablet by mouth once daily 06/25/2024 Myrbetriq Take 1 (one) tablet by mouth once daily 06/25/2024 pantoprazole EC 1 (one) tablet once daily 06/25/2024 traZODone Take 1 (one) tablet by mouth at bedtime 06/25/2024 Current Facility-Administered Medications Medication Dose Last Admin 0.9% NaCl 3 mL And 0.9% NaCl 1-10 mL ceFAZolin 2 g lactated ringers tranexamic acid 1,000 mg Allergies: Allergies Allergen Reactions Fentanyl Headache and Nausea and/or Vomiting Sulfa Drugs Headache, Other and Unknown Hx rheumatoid arthritis Codeine Itching and Other Reaction: Other Relevant Problems Anesthesia (+) Obstructive sleep apnea syndrome Pulmonary (+) Obstructive sleep apnea syndrome Other (+) Arthritis (+) Rheumatoid arthritis involving multiple sites with positive rheumatoid factor (HCC) Problem List: Patient Active Problem List Diagnosis Date Noted Deformity of breast 06/03/2024 Priority: Not Prioritized Arthritis 06/03/2024 Priority: Not Prioritized Seasonal allergies 06/03/2024 Priority: Not Prioritized Foraminal stenosis of cervical region 04/21/2024 Priority: Not Prioritized Rotator cuff tear arthropathy of left shoulder 04/21/2024 Priority: Not Prioritized Diarrhea due to drug 02/06/2024 Priority: Not Prioritized Acute pain of left shoulder 12/25/2022 Priority: Not Prioritized S/P spinal fusion 02/21/2022 Priority: Not Prioritized Degenerative scoliosis 01/18/2022 Priority: Not Prioritized Added automatically from request for surgery [id number] Spinal stenosis of lumbar region with radiculopathy 01/18/2022 Priority: Not Prioritized Added automatically from request for surgery [id number] Acquired trigger finger of both ring fingers 08/16/2020 Priority: Not Prioritized COVID-19 virus infection 08/16/2020 Priority: Not Prioritized Carbuncle of nasal septum 12/29/2019 Priority: Not Prioritized Radial styloid tenosynovitis (de quervain) 05/26/2019 Priority: Not Prioritized Pelvic floor dysfunction in female 03/11/2018 Priority: Not Prioritized Anxiety 10/29/2017 Priority: Not Prioritized Rheumatoid arthritis involving multiple sites with positive rheumatoid factor (HCC) 10/29/2017 Priority: Not Prioritized Obstructive sleep apnea syndrome 04/13/2016 Priority: Not Prioritized Obstructive sleep apnea Hypertrophy of nasal turbinates 01/21/2016 Priority: Not Prioritized Postmenopausal status 06/14/2015 Priority: Not Prioritized Recurrent sinusitis 11/06/2014 Priority: Not Prioritized Insomnia disorder related to known organic factor 09/01/2013 Priority: Not Prioritized PTSD (post-traumatic stress disorder) 08/11/2013 Priority: Not Prioritized Acute midline low back pain without sciatica 12/10/2012 Priority: Not Prioritized High risk medications (not anticoagulants) long-term use 12/04/2011 Priority: Not Prioritized Malignant neoplasm of breast (HCC) 02/16/2011 Priority: Not Prioritized Medical History: Past Medical History: Diagnosis Date Anxiety Sleep apnea No cpap Surgical History: Past Surgical History: Procedure Laterality Date Back Surgery SI Joint Mastectomy Bilateral with implants Tonsillectomy STUNNER ANIMAL Status: No LMP recorded. unknown OB History No obstetric history on file. Covid Vaccine: Lab Results: LANCE ASSISTANT documented in this encounter Procedure Notes * Alessia Mayfield DO - 06/26/2024 10:50 AM CSTAssociated Order(s): Peripheral Nerve Block Peripheral Nerve Block Procedure: Peripheral Nerve Block [...] Patient mildly sedated and tolerated well. . LANCE ASSISTANT * Alessia Mayfield DO - 06/26/2024 10:49 AM CSTAssociated Order(s): Peripheral Nerve Block Peripheral Nerve Block Procedure: Peripheral Nerve Block [...] Provider: Alessia Mayfield DO, Performed the procedure LANCE ASSISTANT * Elvia Salinas APRN-PROPAGATOR - 06/26/2024 8:59 AM CSTAssociated Order(s): ETT Placement Endotracheal Tube Placement: Patient Location: OR. Intubation Event Date/Time: 06/26/2024 8:53 AM Procedure: intubation (00459) Procedure Section: Sedation: under general anesthesia. Indications [...] Provider: Elvia Salinas APRN-CRNA, Performed the procedure LANCE ASSISTANT documented in this encounter Miscellaneous Notes * Anesthesia Transfer of Care - Elvia Salinas APRN-CRNA - 06/26/2024 10:58 AM CST ANESTHESIA TRANSFER OF CARE NOTE Today's Date: 06/26/2024 Date of : 1960 Patient: Lou Zaratehill Procedure(s): LEFT SHOULDER ARTHROSCOPY, DECOMPRESSION LEFT SHOULDER ARTHROSCOPY, ROTATOR CUFF REPAIR LEFT SHOULDER ARTHROSCOPY, BICEPS TENDOESIS LEFT SHOULDER ARTHROSCOPY DISTAL CLAVICAL EXCISION Surgeon(s): Primary: Estefanía Espinoza MD Preop Diagnosis: Pre-op Diagnois: * Tear of left rotator cuff, unspecified tear extent, unspecified whether traumatic [M75.102] Pre-op Meds (From admission, onward) Start Stop Status Route Frequency Ordered 06/26/24 1057 0.9% NaCl injection 1-10 mL 06/26/25 1056 Dispensed IK PRN 06/26/24 1057 06/26/24 0815 acetaminophen (Tylenol) tablet 1,000 mg 06/26/24 0809 Completed PO PRE-OP ONCE 06/26/24 0809 06/26/24 0820 BUPivacaine 0.5% - EPINEPHrine 1:200,000 (PF) injection 06/26/24 0820 Completed Perineural 06/26/24 1050 06/26/24 0824 BUPivacaine 0.5% - EPINEPHrine 1:200,000 (PF) injection 06/26/24 0824 Completed INFILTRATION 06/26/24 1051 06/26/24 0730 ceFAZolin (Ancef) syringe 2,000 mg 06/26/24 0847 Completed IV ONCE 06/26/24 0728 06/26/24 1058 diphenhydrAMINE (Benadryl) capsule 25 mg -- Sent PO EVERY 6 HOURS PRN 06/26/24 1058 06/26/24 1057 diphenhydrAMINE (Benadryl) injection 25 mg -- Sent IV ONCE PRN 06/26/24 1057 06/26/24 0815 famotidine (Pepcid) injection 20 mg 06/26/24 0810 Completed IV PRE-OP ONCE 06/26/24 0809 06/26/24 1057 hydrALAZINE (Apresoline) injection 5 mg -- Sent IV POST-OP MULTIPLE 06/26/24 1057 06/26/24 1057 HYDROcodone-acetaminophen (Toluca) 5-325 MG tablet 1 tablet -- Sent PO ONCE PRN 06/26/24 1057 06/26/24 1057 HYDROmorphone (Dilaudid) injection 0.25 mg -- Sent IV EVERY 10 MIN PRN 06/26/24 1057 06/26/24 1057 labetalol (Normodyne; Trandate) injection 5 mg -- Sent IV POST-OP MULTIPLE 06/26/24 1057 06/26/24 1100 lactated ringers infusion -- Sent IV CONTINUOUS 06/26/24 1057 06/26/24 0820 lidocaine (Xylocaine) 1 % injection 06/26/24 0820 Completed INFILTRATION 06/26/24 1050 06/26/24 0824 lidocaine (Xylocaine) 1 % injection 06/26/24 0824 Completed INFILTRATION 06/26/24 1051 06/26/24 1058 metoclopramide (Reglan) injection 5 mg -- Sent IV EVERY 6 HOURS PRN 06/26/24 1058 06/26/24 1058 metoclopramide (Reglan) injection 5 mg -- Sent IM EVERY 6 HOURS PRN 06/26/24 1058 06/26/24 1057 naloxone (Narcan) injection 0.04 mg -- Sent IV POST-OP MULTIPLE 06/26/24 1057 06/26/24 1058 naloxone (Narcan) injection 0.4 mg -- Sent IV PRN 06/26/24 1058 06/26/24 1058 ondansetron (disintegrating) (Zofran ODT) tablet 4 mg -- Sent PO EVERY 6 HOURS PRN 06/26/24 1058 06/26/24 1057 ondansetron (Zofran) injection 4 mg -- Sent IV ONCE PRN 06/26/24 1057 06/26/24 1058 ondansetron (Zofran) injection 4 mg -- Sent IV EVERY 6 HOURS PRN 06/26/24 1058 06/26/24 1057 prochlorperazine (Compazine) injection 10 mg 06/26/25 1056 Sent IV ONCE PRN 06/26/24 1057 06/26/24 0945 scopolamine (Transderm-Scop) 1 patch 06/29/24 0919 Verified TD ONCE 06/26/24 0919 06/26/24 1058 throat lozenge 1 lozenge Note to Pharmacy: PRN frequencies will not automatically dispense -- Sent PO EVERY 2 HOURS PRN 06/26/24 1058 Post-op Diagnosis: * Tear of left rotator cuff, unspecified tear extent, unspecified whether traumatic [M75.102] . Allergies Allergen Reactions Fentanyl Headache and Nausea and/or Vomiting Sulfa Drugs Headache, Other and Unknown Hx rheumatoid arthritis Codeine Itching and Other Reaction: Other Vitals: Patient Vitals for the past 3 hrs: BP Pulse Resp SpO2 06/26/24 0845 -- 76 20 97 % 06/26/24 0840 142/72 80 19 97 % 06/26/24 0835 142/83 80 14 97 % 06/26/24 0833 142/83 83 20 97 % 06/26/24 0830 93/78 81 24 96 % 06/26/24 0825 134/79 80 24 99 % 06/26/24 0820 118/86 74 21 95 % 06/26/24 0815 139/79 67 18 99 % 06/26/24 0810 123/92 76 17 95 % 06/26/24 0805 133/83 70 15 96 % 06/26/24 0800 147/88 68 17 95 % Lines, Drains, and Airways Type Details Placement Removal Peripheral IV Date: 06/26/24; Time: 0800; Orientation: Posterior, Right; Location: Hand; Gauge: 20 G 06/26/24 0800 by Shelia Bobo RN ETT Date: 06/26/24; Time: 0853; Placed By: BO Conde; Vent: easy mask; Induction: Modified Rapid Sequence; Blade Type: Binu; Blade Size: 3; Laryngoscopy View: Grade 1 (full cords);Intubation Adjuncts: Stylet; Tube: Endotracheal Tube; Placement: Oral; Tube Type: Cuffed-inflated; Tube Size(mm): 7 MM; Depth of Insertion: 21 CM; Measured From: teeth; Attempts: 1; Cuff Infated: Air; Cuff Vol(mL): 7 mL; Verified By: Direct visualization, Bilateral breath sounds, Chest Auscultation, CO2 Monitor 06/26/24 0853 by Elvia Salinas APRN- CRNA 06/26/24 1053 by Elvia Salinas APRN-CRNA Intraprocedure I/O Totals Intake lactated ringers infusion 1000.00 mL Total Intake 1000 mL Patient Transfer Location: PACU Transport Airway: spontaneous respirations and supplemental O2 Notable Events: None Handoff Given? Yes Checklist or Protocol - The marks handoff elements that must be included in the transfer of care checklist include: 1. Identification of patient. 2. Identification of responsible practitioner (PACU nurse or advanced practitioner). 3. Discussion of pertinent medical history. 4. Discussion of the surgical/procedure course (procedure, reason for surgery, procedure performed). 5. Intraoperative anesthetic management and issue/concerns. 6. Expectations/Plans for the early post-procedure period. 7. Opportunity for questions and acknowledgement of understanding of report from the receiving PACUteam. NOTABLE EVENTS: No notable events documented. BO Conde LANCE ASSISTANT documented in this encounter Plan of Treatment Not on file documented as of this encounter Procedures Procedure Name Priority Date/Time Associated Diagnosis Comments PERIPHERAL BLOCK Routine 06/26/2024 10:5 0 AM AMBULANCE ASSISTANT PERIPHERAL BLOCK Routine 06/26/2024 10:4 9 AM AMBULANCE ASSISTANT ENDOTRACHEAL TUBE NOTE Routine 06/26/2024 8:59 AM AMBULANCE ASSISTANT documented in this encounter Results * Peripheral Nerve Block (06/26/2024 10:50 AM AMBULANCE ASSISTANT) Narrative Alessia Mayfield DO - 06/26/2024 10:50 AM AMBULANCE ASSISTANT Alessia Mayfield DO 06/26/2024 10:51 AM Peripheral [...] * Peripheral Nerve Block (06/26/2024 10:49 AM AMBULANCE ASSISTANT) Narrative Alessia Mayfield DO - 06/26/2024 10:49 AM AMBULANCE ASSISTANT Alessia Mayfield DO 06/26/2024 10:50 AM Peripheral [...] * ETT LINE PERFORMABLE (06/26/2024 8:59 AM AMBULANCE ASSISTANT) Narrative Elvia Salinas APRN-PROPAGATOR - 06/26/2024 8:59 AM AMBULANCE ASSISTANT Elvia Salinas APRN-CRNA 06/26/2024 9:03 AM Endotracheal Tube Placement: Patient Location: OR. Intubation Event Date/Time: 06/26/2024 8:53 AM Procedure: intubation (32589) Procedure Section: Sedation: under general anesthesia. Indications [...] Elvia Salinas APRN-CRNA, Performed the procedure Alessia Mayfield DO GENERAL ANESTHESIA O RDERABLES documented in this encounter Visit Diagnoses Not on filedocumented in this encounter Administered Medications Inactive Administered Medications - up to 3 most recent administrations Medication Order MAR Action Action Date Dose Rate Site BUPivacaine 0.5% - EPINEPHrine 1:200,000 (PF) injection Perineural, Starting on Claire 06/26/24 at 0820, Until Claire 06/26/24 at 0820, Anesthesia Intra-op $ Given 06/26/2024 8:20 AM AMBULANCE ASSISTANT 20 mL BUPivacaine 0.5% - EPINEPHrine 1:200,000 (PF) injection Infiltration, Starting on Claire 06/26/24 at 0824, Until Claire 06/26/24 at 0824, Anesthesia Intra-op $ Given 06/26/2024 8:24 AM AMBULANCE ASSISTANT 5 mL ceFAZolin (Ancef) syringe 2,000 mg 2,000 mg (2 g), Intravenous, ONCE, 1 dose, On Claire 06/26/24 at 0730, Administer within 60 minutes pre-op Administer over 3-5 minutes., Indication for anti-infective therapy: Surgical prophylaxis, Pre-op $ Given 06/26/2024 8:47 AM AMBULANCE ASSISTANT 2 g dexAMETHasone (Decadron) injection Intravenous, PRN, Starting on Claire 06/26/24 at 0852, Until Claire 06/26/24 at 1058, Anesthesia Intra-op $ Given 06/26/2024 8:52 AM AMBULANCE ASSISTANT 4 mg esmolol (Brevibloc) injection Intravenous, PRN, Starting on Claire 06/26/24 at 0852, Until Claire 06/26/24 at 1058, Anesthesia Intra-op $ Given 06/26/2024 8:52 AM AMBULANCE ASSISTANT 50 mg glycopyrrolate (Robinul) injection Intravenous, PRN, Starting on Claire 06/26/24 at 0926, Until Claire 06/26/24 at 1058, Anesthesia Intra-op $ Given 06/26/2024 9:26 AM AMBULANCE ASSISTANT 0.2 mg lactated ringers infusion at 100 mL/hr, Intravenous, CONTINUOUS, Starting on Claire 06/26/24 at 0730, Until Claire 06/26/24 at 1057, Pre-op $ New Bag/Syringe 06/26/2024 10:45 AM AMBULANCE ASSISTANT $ New Bag/Syringe 06/26/2024 8:03 AM AMBULANCE ASSISTANT 100 mL /hr lidocaine (Xylocaine) 1 % injection Infiltration, Starting on Claire 06/26/24 at 0820, Until Claire 06/26/24 at 0820, Anesthesia Intra-op $ Given 06/26/2024 8:20 AM AMBULANCE ASSISTANT 1 mL lidocaine (Xylocaine) 1 % injection Infiltration, Starting on Claire 06/26/24 at 0824, Until Claire 06/26/24 at 0824, Anesthesia Intra-op $ Given 06/26/2024 8:24 AM AMBULANCE ASSISTANT 1 mL lidocaine PF (Xylocaine MPF) 1 % injection Intravenous, PRN, Starting on Claire 06/26/24 at 0852, Until Claire 06/26/24 at 1058, Anesthesia Intra-op $ Given 06/26/2024 8:52 AM AMBULANCE ASSISTANT 100 mg midazolam (Versed) injection Intravenous, PRN, Starting on Claire 06/26/24 at 0817, Until Claire 06/26/24 at 1058, Anesthesia Intra-op $ Given 06/26/2024 8:17 AM AMBULANCE ASSISTANT 2 mg ondansetron (Zofran) injection Intravenous, PRN, Starting on Claire 06/26/24 at 0852, Until Claire 06/26/24 at 1058, Anesthesia Intra-op $ Given 06/26/2024 8:52 AM AMBULANCE ASSISTANT 4 mg propofol (Diprivan) injection Intravenous, PRN, Starting on Claire 06/26/24 at 0852, Until Claire 06/26/24 at 1058, Anesthesia Intra-op $ Given 06/26/2024 9:01 AM AMBULANCE ASSISTANT 20 mg $ Given 06/26/2024 8:52 AM AMBULANCE ASSISTANT 180 mg $ Given 06/26/2024 8:17 AM AMBULANCE ASSISTANT 20 mg succinylcholine (Anectine) injection Intravenous, PRN, Starting on Claire 06/26/24 at 0852, Until Claire 06/26/24 at 1058, Anesthesia Intra-op $ Given 06/26/2024 8:52 AM AMBULANCE ASSISTANT 100 mg tranexamic acid (Cyklokapron) injection 1,000 mg 1,000 mg, Intravenous, ONCE, 1 dose, On Claire 06/26/24 at 0730, Given by anesthesia, Intra-op $ Given 06/26/2024 8:55 AM AMBULANCE ASSISTANT 1,000 mg documented in this encounter Care Teams Medical Biller Coder Relationship Specialty Start Date End Date Fletcher Dockery MD [address] [place] [id number] PCP - General Family Medicine 06/03/24 documented as of this encounter
--- OUTSIDE RECORDS SUMMARY | 2024-06-27 05:21 | XMS_ITS | Clinical Summary ---
Author Organization [facility] Address [address] [place] [address] Care Team Providers Care Dumper Bailer Operator Name Role Phone Fletcher Dockery MD Primary Care Provider [phone]- [phone] Source Comments [facility],non-owned Affiliates and Associated Physician Practices is amultiple site organization consisting of ambulatory clinics and hospital sitesin [place], [place], [place] and [place]. This disclosure is being madepursuant to the Care Everywhere program and may not contain all information available regarding this patient. Last updated 18.[employer] [facility] Allergies Active Allergy Reactions Criticality Noted Date Comments Codeine Itching,Other Low 08/27/2009 Reaction: Other Fentanyl Headache,Nausea and/ or Vomiting Low 08/27/2009 Sulfa Drugs Headache,Other,Unknown Low 08/27/2009 Hx rheumatoid arthritis Medications * Be aware that medications may not be up to date on this document. Alwaysverify current medications with the patient. Medication Sig Dispensed Refills Start Date End Date Status Latosha Torres Pen, 40 MG/0.4ML injection Inject 0.4 mL [...] 03/05/2024 5 Discontinue d(Clinical Decision) HYDROcodone-acet aminophen ([place]) 5-325 MG tablet Take 1 (one) tablet [...] (06/03/2024): Added automatically from request for surgery [id number] Spinal stenosis of lumbar region with radiculopa thy 01/18/2022 Overview (06/03/2024): Added automatically from request for surgery [id number] Acquired trigger finger of both ring fingers [...] Resolved Date Upper respiratory infection 06/24/2012 06/17/2024 Encounters Date Type Department Care Team Description 06/26/2024 9:00 AM CASING BUILDER - 06/26/2024 11:10 AM CASING BUILDER Surgery [facility] Surgery [address] [address] [facility], [address] [place] [address] Estefanía Espinoza MD LEFT SHOULDER ARTHROSCOPY, DECOMPRESSION 06/26/2024 8:46 AM CASING BUILDER Anesthesia Event [facility] Surgery [address] [address] [facility], [address] [place] [address] Alessia Mayfield, Elvia Capellan, CARTOGRAPHY PROFESSOR-CURRICULUM FACILITATOR 06/26/2024 7:27 AM CASING BUILDER - 06/26/2024 11:59 PM CASING BUILDER Hospital Encounter [address], [address] [place] [address] Estefanía Espinoza MD Surgery General Discharge Disposition: Home or Self Care 06/26/2024 Refill [facility] [address] [place] [address], [address] [place] [address] Estefanía Espinoza MD MEDICATION REFILL 06/26/2024 Telephone [facility] Orthopedics [address] [place] [address], [address] [place] [address] Estefanía Espinoza MD Med Question 06/26/2024 Travel 2024 3:45 PM CASING BUILDER Ancillary Procedure [facility] Orthopedics - Radiology [address] [place] [phone] Estefanía Espinoza MD Chronic right shoulder pain 2024 3:20 PM CASING BUILDER Office Visit [facility] [address] [place] [address], [facility] [address] [place] [address] Estefanía Espinoza MD Chronic left shoulder pain (Primary Dx); Nontraumatic complete tear of left rotator cuff; Chronic right shoulder pain; Tendinitis of right rotator cuff; Rheumatoid arthritis involving multiple sites, unspecified whether rheumatoid factor present ([facility] [place] [facility]) 06/11/2024 8:34 AM CASING BUILDER - 06/11/2024 11:59 PM CASING BUILDER Hospital Encounter [facility] [address] [place] [address] [address] [place] [address] Estefanía Espinoza MD Discharge Disposition: Home or Self Care 06/11/2024 Travel 06/05/2024 Travel 06/03/2024 10:45 AM CASING BUILDER Ancillary Procedure [facility] Orthopedics - Radiology [address] [place] [phone] Meagan Quiñones PA-C Chronic left shoulder pain 06/03/2024 10:30 AM CASING BUILDER Office Visit [facility] [address] [place] [address], [address] [place] [phone] Meagan Quiñones PA-C Nontraumatic complete tear of left rotator cuff (Primary Dx); Chronic left shoulder pain 06/03/2024 Telephone [facility] [address] [place] [address], [facility] [address] [place] [phone] Estefanía Espinoza MD Patient Requested Call (Patient called in to confirm that 06/26 will be a good date for sx for her . She will like a call back to confirm that you all got her reply /) 06/03/2024 Telephone [facility] Orthopedics [address] [place] [address], [address] [place] [phone] Estefanía Espinoza MD Question from Last 3 Months Social History Tobacco Use Types Packs/Day Years [...] Comments Blood Pressure 146/84 06/26/2024 11:51 AM CASING BUILDER Pulse 78 06/26/2024 12:01 PM CASING BUILDER Temperature 36 C (96.8 F) 06/26/2024 10:58 AM CASING BUILDER Respiratory Rate 14 06/26/2024 12:01 PM CASING BUILDER Oxygen Saturation 94% 06/26/2024 12:01 PM CASING BUILDER Inhaled Oxygen Concentration - - Weight 65.6 kg (144 lb 9.6 oz) 06/26/2024 7:35 A M CASING BUILDER Height 154.9 cm (5' 1 ) 06/11/2024 8:55 AM CASING BUILDER Body Mass Index 27.32 06/11/2024 8:55 AM CASING BUILDER Plan of Treatment Health Maintenance Due Date Last Done Comments COLOGUARD (AGES 45-75) - COLON CA SCREENING 1962 COLON MONITORING 1962 COLONOSCOPY - COLON CA SCREENING 1962 CT COLONOGRAPHY - COLON CA SCREENING 1962 Colorectal Cancer Screening 1962 FIT - COLON CA SCREENING 1962 FLEX SIG - COLON CA SCREENING 1962 LIPID TESTING 1962 MAMMOGRAM 1962 PAP SMEAR 1962 HIV SCREENING 1977 HEPATITIS C SCREENING 06/13/1980 DTAP/TDAP/TD VACCINES (1 - Tdap) 1981 PNEUMOCOCCAL VACCINE 50+ (1 of 1 - PCV) 2012 ZOSTER VACCINE (1 of 2) 2012 COVID-19 VACCINE (1 - 2023- season) 2024 INFLUENZA VACCINE (#1) 2024 2, 02/16/2020, 03/06/2013, Additional history exists SCREENING FOR DIABETES 06/03/2024 Respiratory Syncytial Virus (RSV) Vaccine Pt: or over 60 yrs (1 - 1-dose 75+ series) 2037 DEPRESSION SCREENING Completed 06/03/2024 HEPATITIS B VACCINE Aged Out No longe r eligible based on patient's age to complete this topic HIB VACCINE Aged Out No longer eligi ble based on patient's age to complete this topic HPV VACCINE Aged Out No longer eligi ble based on patient's age to complete this topic MENINGOCOCCAL (Group B) VACCINE Aged Out No longer eligible based on patient's age to complete this topic MENINGOCOCCAL VACCINE Aged Out No lesli pearl eligible based on patient's age to complete this topic Medical Devices Implanted Type Area Entry Level Electrician Device Identifier Shelf Expiration Date Model / Serial / Lot Sys Impl Kntls Fibertape Speedbridge Implanted:Qty: 1 on 06/26/2024 by Estefanía Espinoza MD at [facility] Left: Shoulder [employer] 03/13/2028 [id number] -2 / / [id number] [place] Sut Fibertak Kntls Slf Pnch 2.6mm Implanted:Qty: 1 on 06/26/2024 by Estefanía Espinoza MD at [facility] Left: Shoulder [employer] 03/13/2029 [id number] / / [id number] Procedures Procedure Name Priority Date/Time Associated Diagnosis Comments PERIPHERAL BLOCK Routine 06/26/2024 10:5 0 AM CASING BUILDER PERIPHERAL BLOCK Routine 06/26/2024 10:4 9 AM CASING BUILDER ENDOTRACHEAL TUBE NOTE Routine 06/26/2024 8:59 AM CASING BUILDER XR SHOULDER RIGHT 2VW OR MORE Routine 2024 3:46 PM CASING BUILDER Chronic right shoulder pain XR SHOULDER LEFT 2VW OR MORE Routine 06/03/2024 10:57 AM CASING BUILDER Chronic left shoulder pain from Last 3 Months Results * Peripheral Nerve Block (06/26/2024 10:50 AM CASING BUILDER) Narrative Alessia Mayfield DO - 06/26/2024 10:50 AM CASING BUILDER Alessia Mayfield DO 06/26/2024 10:51 AM Peripheral [...] * Peripheral Nerve Block (06/26/2024 10:49 AM CASING BUILDER) Narrative Alessia Mayfield DO - 06/26/2024 10:49 AM CASING BUILDER Alessia Mayfield DO 06/26/2024 10:50 AM Peripheral [...] procedure Alessia Mayfield DO GENERAL ANESTHESIA O PAOLA * ETT LINE PERFORMABLE (06/26/2024 8:59 AM CASING BUILDER) Narrative Elvia Salinas APRN-CRNA - 06/26/2024 8:59 AM CASING BUILDER Elvia Salinas APRN-CRNA 06/26/2024 9:03 AM Endotracheal Tube Placement: Patient Location: OR. Intubation Event Date/Time: 06/26/2024 8:53 AM Procedure: intubation (87180) Procedure Section: Sedation: under general anesthesia. Indications [...] procedure Alessia Mayfield DO GENERAL ANESTHESIA O BOGDANERABLES * XR Shoulder Right 2Vw or More (2024 3:46 PM CASING BUILDER) Narrative [facility] [address] - 2024 3:47 PM CASING BUILDER Please see progress note in Epic for results. Estefanía Espinoza MD DIAGNOSTIC IMAGING ORDERABLES [facility] [address] * XR Shoulder Left 2Vw or More (06/03/2024 10:57 AM CASING BUILDER) Narrative [facility] [address] - 06/03/2024 10:57 AM CASING BUILDER Please see progress note in Epic for results. Meagan Quiñones PA-C DIAGNOSTIC IMAGING O RDERABLES [facility] [address] from Last 3 Months Care Teams Dumper Bailer Operator Relationship Specialty Start Date End Date Fletcher Dockery MD [address] [place] [phone] PCP - General Family Medicine 06/03/24
--- OUTSIDE RECORDS SUMMARY | 2024-06-27 05:21 | XMS_ITS | Encounter Summary ---
Author Organization [facility] Address [address] [facility] [place] [address] Care Team Providers Care Dieing Out Machine Operator Name Role Phone Fletcher Dockery MD Primary Care Provider +1- [phone] Encounter Details Date Type Department Care Team (Latest Contact Info) Description 06/26/2024 Travel Social History Tobacco Use Types Packs/Day Years [...] on filedocumented in this encounter Care Teams Dieing Out Machine Operator Relationship Specialty Start Date End Date Fletcher Dockery MD [facility] [place] [phone] PCP - General Family Medicine 06/03/24 documented as of this encounter
--- OUTSIDE RECORDS SUMMARY | 2024-06-27 05:21 | XMS_ITS | Encounter Summary ---
Author Organization [facility] Address [address] [place] [address] Care Team Providers Care Machine Design Teacher Name Role Phone Fletcher Dockery MD Primary Care Provider [phone] Reason for Visit * Auth/Cert (Routine) Specialty Diagnoses / Procedures Referred By Christian t Referred To Contact Diagnoses Tear of left rotator cuff, unspecified tear extent, unspecified whether traumatic Tear of left rotator cuff, unspecified tear extent, unspecified whether traumatic [M75.102] Procedures WV SHOULDER ARTHROSCOPY WV SCOPE SHLDR SURG;W/ROTOR CUFF WV ARTHROSCOPY BICEPS TENODESIS WV SHOULDER ARTHROSCOPY ARTHROSCOPY SHOULDER ARTHROSCOPY SHOULDER ROTATOR CUFF REPAIR (RCR) ARTHROSCOPY SHOULDER BICEP TENODESIS ARTHROSCOPY SHOULDER DISTAL CLAVICULECTOMY (LEYDA) Referral ID Status Reason Start Date Expiration Date Visits Re quested Visits Authorized [id number] 1 1 Encounter Details Date Type Department Care Team (Late st Contact Info) Description 06/26/2024 9:[address] - 06/26/2024 11:[address]IVER Surgery [facility] - General Surgery [address] [facility] [address] [place] [address] [place] [id number] [facility] [address] [place], [place] [id number] LEFT SHOULDER ARTHROSCOPY, DECOMPRESSION Social History Tobacco Use Types Packs/Day Years [...] on file documented as of this encounter Last Filed Vital Signs Vital Sign Reading Time Taken Comments Blood Pressure 140/88 06/26/2024 11:[address] Pulse 86 06/26/2024 11:[address] Temperature 36 C (96.8 F) 06/26/2024 10:[address]IVER Respiratory Rate 19 06/26/2024 11:[address] Oxygen Saturation 100% 06/26/2024 11:[address] Inhaled Oxygen Concentration - - Weight 65.6 kg (144 lb 9.6 oz) 06/26/2024 7:[address] DRIVER Height - - Body Mass Index 27.32 06/11/2024 8:[address]IVER documented in this encounter Medications at Time of Discharge Medication Sig Dispensed Refills Start Date End Date acetaminophen (Tylenol) 500 MG tablet Take 2 (two) tablets by mouth 3 times daily Maximum allowable Acetaminophen amount = 4 Grams (4000 mg) / 24 hours. 06/26/2024 amoxicillin (Amoxil) 500 MG capsule Take 1 (one) capsule by mouth 2 times daily 05/01/2024 aspirin (Aspirin) 81 MG chew tablet Take 1 (one) tablet by mouth once daily 21 tablet 06/26/2024 buPROPion XL 24hr (Wellbutrin-XL) 150 MG tablet Take 1 (one) tablet by mouth every morning 01/18/2023 escitalopram (Lexapro) 10 MG tablet Take 1 (one) tablet by mouth once daily 04/23/2024 folic acid (Folvite) 1 MG tablet Take 1 (one) tablet by mouth once daily Humira, 2 Pen, 40 MG/0.4ML injection Inject 0.4 mL subcutaneously every 14 days 02/06/2024 hydrOXYzine HCl (Atarax) 50 MG tablet Take 1 (one) tablet by mouth 4 times daily as needed for Itching 28 tablet 06/26/2024 methotrexate 2.5 MG tablet Take 8 (eight) tablets by mouth every 7 days 04/21/2024 Myrbetriq 25 MG tablet Take 1 (one) tablet by mouth once daily 10/23/2023 oxyCODONE, immediate release, (Roxicodone) 5 MG tabletIndications:S/P rotator cuff repair Take 1 (one) tablet to 2 (two) tablets by mouth every 4 hours as needed for Pain (Moderate or Severe Pain) 42 tablet 06/26/2024 pantoprazole EC (Protonix) 40 MG tablet 1 (one) tablet once daily 04/06/2024 tirzepatide (Zepbound) 5 MG/0.5ML injection Inject 5 (five) mg subcutaneously every 7 days Takes on traZODone (Desyrel) 100 MG tablet Take 1 (one) tablet by mouth at bedtime 05/21/2024 documented as of this encounter H&P Notes * Estefanía Espinoza MD - 06/25/2024 2:36 PM CST Images from the original note were not included. Patient was seen and examined the day of surgery, 06/26/2024 . Any interval change in the history, physical, exam findings or surgical plan has been accurately documented or addended in the history and physical. PATIENT NAME: Mal East CHIEF COMPLAINT: Left shoulder pain Right shoulder pain, similar symptoms. HISTORY OF PRESENT ILLNESS: This is a very pleasant 63-year-old female presents today for evaluation of left shoulder pain. She reports that she has had many years of left shoulder pain. She has underlying rheumatoid arthritis. She has received multiple cortisone injections 3 rheumatology and pain management. She reports that recently the pain has gotten significantly worse in the left shoulder. An MRI was obtained. She was found to have a rotator cuff tear. She underwent a cortisone injection in the left shoulder about 6 weeks ago. This was with pain management. This really relate did not give her any relief. She also has contributing neck pathology with some radicular symptoms. She is right-hand dominant. 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 She has pain at night. She has pain with activities at shoulder height. She has modified her activities and been through prior physical therapy. Also with similar symptoms on the right. She is right handed. She has had intermittent steroid injections in the right side before. She is requesting that today as she plans on proceeding with left shoulder surgery. She reports that she has pain reaching at shoulder level and overhead. Pain with everyday activity. Achy pain in the deltoid region. Night pain. She does take norco 5 mg daily for pain. She has been taking this recently due to her shoulder pain. It is provided by her primary care physician. REVIEW OF SYSTEMS: Negative PAST MEDICAL HISTORY: History of breast cancer, posttraumatic stress disorder, obstructive sleep apnea, rheumatoid arthritis PAST SURGICAL HISTORY: Lumbar spine fusion, mastectomy CURRENT MEDICATIONS: Pantoprazole, Myrbetriq, BuSpar, Lexapro, diclofenac, folic acid, methotrexate, Humira, trazodone. [facility]. 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 reports that she has never smoked. She has never used smokeless tobacco. She reports current alcohol use. She reports current drug use. Drug: Marijuana. Physical Exam: Examination reveals a healthy appearing female in no distress. The patient is alert and oriented with normal mood and affect. The patient can ambulate with a normal gait. . Height 5 ft 1 Weight 140 pounds BMI is 27.4 General appearance: alert, cooperative, no distress Lungs: breath sounds normal and symmetric; no rales or wheezes Heart: regular rhythm, normal S1 and S2, without murmurs, gallops or rubs Abdomen: soft without mass, non-tender, with normal bowel sounds Extremities: no clubbing, cyanosis or edema Examination reveals that the bilateral shoulders are symmetric bilaterally. The bilateral shouldersare grossly stable. The left shoulder has subacromial, deep anterior, AC joint tenderness. RANGE OF MOTION: INVOLVED left /UNINVOLVED: Forward Elevation: 160 / 170 Abduction: 160 / 170 External Rotation: 60 / 70 Internal Rotation: L1 / L1 Sensation to light touch is intact in the bilateral upper extremities and pulses are palpable. Motor strength is 4/5 for forward flexion, 3/5 for supraspinatus, and 4/5 for infraspinatus. Special Testing: She is very painful with strength test Positive impingement arc Positive Mukherjee Negative belly press Negative speed's Mild pain with Seligman's Negative cross arm adduction On the right shoulder. She has pain with Neer and Mukherjee maneuver. Pain with strength testing. Strength is 5-/5 for forward flexion supraspinatus. Positive empty can Examination the neck revealed limited range of motion. Spurling's maneuver negative. Sane Score (0-100): 2024 4:00 PM 06/03/2024 11:00 AM SANE Score Left Shoulder Score 50 Right Shoulder Score 40 2024 4:00 PM 06/03/2024 11:00 AM ASES Score ASES (Left) 43.3 ASES (Right) 41.6 2024 4:00 PM 06/03/2024 11:00 AM Simple Shoulder Test (SST) Score SST Score (Left) 4 SST Score (Right) 8 X Ray: Three views of the right shoulder(s) obtained 2024 including AP, axillary lateral and outlet radiographs reveal preserved glenohumeral and preserved acromiohumeral distance with a Type 2 acromion. Cystic and hypertrophic change in the greater tuberosity. No bony abnormalities are otherwise noted. Three views of the left shoulder(s) including AP, axillary lateral and outlet radiographs reveal preserved glenohumeral and preserved acromiohumeral distance with a Type 2 acromion. No bony abnormalities are otherwise noted. MRI of the left shoulder dated 05/04/2024 was reviewed. This is from [facility]. This reveals a full-thickness rotator cuff tear measuring a proximally 10 by 10 mm. Moderate degenerative changes of the AC joint. Bursitis is present degenerative changes of the superior labrum Impression: 1. Left shoulder rotator cuff tear . 2. Left shoulder AC joint arthritis, symptomatic. 3. Right shoulder rotator cuff tendinitis versus tear. Plan: After reviewing the options with the patient, she would like to proceed with surgery. This will be a left shoulder arthroscopy, subacromial decompression, rotator cuff repair, distal clavicle excision, and possible biceps tenodesis. We discussed the risk and benefits of surgery. She understands and wishes to proceed. I reviewed all of her questions and concerns. Lastly she does have a radicular component of pain. She understands this will likely not improve with shoulder surgery. She would like to proceed. lCONSENT FOR SURGERY After reviewing the risks, benefits, and alternatives with the patient and/ or family members present, the patient would like to proceed with surgery. The risks include but are not limited to bleeding, infection, nerve, blood vessel or tendon injury, failure of the procedure including the need for further surgery and the possibility of revision surgery; intraoperative or postoperative fracture; medical complications such as heart attack, blood clot, stroke, pneumonia; failure of the procedure including no or incomplete relief of pain, dissatisfaction with the results, failure of tissues to heal or completely heal. In the case of rotator cuff or other tissue repairs (labral repair, meniscal repair, other soft tissue repair) and fracture healing, there is a risk that the tissue may not heal or fully heal (nonunion/ malunion in case of fracture). I also reviewed with the patient in the case of biceps tenotomy or tenodesis if that is a listed part of their procedure that change in contour or appearance of the muscle and arm as well as temporary cramping can occur. If the patient is being consented for total joint arthroplasty, I specifically reviewed with the patient the risk of eventual need for revision surgery, the risk of delayed infection, loosening or failure of the components, dislocation, and the inherent limitations of function and range of motion obtainable with joint arthroplasty. The patient also understands that if I recommend the use of allograft tissue for their surgery there is a small but finite risk of disease transmission. In the case of autograft bone or other tissue donation, the patient understands the risks of donor site morbidity include pain, fracture, tendonitis such as patellar tendonitis and anterior knee pain in the case of patellar tendon autograft, and loss of pelvic contour or hernia in the case of iliac crest bone graft. The above informed consent applies as appropriate to the patient, depending on the procedure the patient will be having and is not an all inclusive list of the potential risks of surgical procedures.The patient expressed understanding of the above outlined common risks, potential benefits and alternatives to surgical intervention and wishes to proceed. OPIOID INFORMED CONSENT: The risks, benefits, and alternatives of opioid use were provided to the patient. The patient understands and agrees to the use of opioids as part of treatment to manage acute and/or postoperative pain. He/she agrees to take the pain medication not more frequently than prescribed and only as neededto manage pain. They understand that increasing the dose could lead to drug overdose causing severesedation, respiratory depression, and possibly . He/she understands that there are side effects with opioid medications which may include but are not limited to rash, constipation, sexual dysfunction, sleeping abnormalities, sweating, edema, sedation, confusion, depression, increased sensitivity to pain, and impaired motor ability. They understand it may not be safe to drive a car, operate machinery, or take care of other people while taking narcotic pain medication. They understand that these medications (opioids) are addictive and may require addiction treatment. Overuse of this class of medication can lead to physical dependence and the experience of withdrawal sickness after stopping use. Withdrawal symptoms may feel like the flu including abdominal pain, nausea, vomiting, diarrhea, sweating, body aches, muscle cramps, anxiety, sleep problems. They have attested that they understand the medication is for their own use and will not give or sell any portion of the prescription to another individual. The patient also understands that current law prohibits receiving more than a7 day prescription for opioids except an exceptional cases. They also understand they have the option to fill the prescription for a lesser quantity than prescribed. THE ROAD DRIVER documented in this encounter OR Notes * Operative - Estefanía Espinoza MD - 06/26/2024 11:18 AM CST [facility]PER[facility] REPORT PATIENT: : MAL EAST MR#: [id number] ADMIT DATE: 06/26/2024 CSN: [id number] DATE OF SURGERY: 06/26/2024 : 1960 PHYSICIAN: Estefanía Espinoza MD ROOM: PREOPERATIVE DIAGNOSES: 1. Left shoulder rotator cuff tear. 2. Left shoulder biceps tendinitis. 3. Left shoulder acromioclavicular arthrosis. 4. Glenohumeral degenerative change. POSTOPERATIVE DIAGNOSES: 1. Left shoulder rotator cuff tear. 2. Left shoulder biceps tendinitis. 3. Left shoulder acromioclavicular arthrosis. 4. Glenohumeral degenerative change. PROCEDURES PERFORMED: 1. Left shoulder arthroscopy and arthroscopic rotator cuff repair. 2. Arthroscopic biceps tenodesis. 3. Arthroscopic distal clavicle excision. 4. Left shoulder extensive glenohumeral debridement. 5. Left shoulder subacromial decompression and acromioplasty. SURGEON: Estefanía Espinoza MD. CORE LOADER: Margoth Bunn. The skilled assistance of the PA-C/RN was necessary for the effective and successful completion of this case. The physician event marketing assistant was essential for the proper positioning, manipulation of instruments, proper exposure, manipulation tissue and wound closure. ANESTHESIA: General anesthesia plus interscalene block. ESTIMATED BLOOD LOSS: Minimal. COMPLICATIONS: None. TOURNIQUET TIME: None. INDICATIONS FOR PROCEDURE: This patient is a 64-year-old with persistent left shoulder pain. After reviewing the risks, benefits, and alternatives, the plan was to proceed with surgical intervention. IMPLANTS: 1. SpeedBridge, anchors x5. 2. 2.6 mm FiberTak x1. FINDINGS: Examination of the left shoulder arthroscopically revealed she had degenerative change of both the glenoid and humerus with less than 50% articular cartilage loss in a patchy pattern on the humerus and some degenerative fraying centrally on the glenoid. Bone quality was soft. There were no loose bodies or cysts. She had a type 2 superior labral tear. Anterior labrum had fraying. Posterior labrum was intact. Biceps tendon inflammation. The biceps origin at the superior labrum was unstable. Ligaments, rotator interval, and capsule were normal. Bursitis was present. There was fraying of the CA ligament. She had a type 2 acromion. AC arthrosis was present. Total tear size 30 mm anterior-posterior by 25 mm retracted to zone 2 for supraspinatus and infraspinatus. Teres minor and subscapularis were intact. The lateral edge fixation was used anteriorly posteriorly x2 and dual-layer fixation was used x3. PROCEDURE: After obtaining informed consent, the patient was taken to the operating room and underwent general anesthesia. The left arm and upper extremity were prepped and draped. Time-out procedure was performed. Standard anterior and posterior arthroscopy portals were created. Additional lateral working portals were created as necessary. The shoulder joint was examined and the findings were outlined above. Extensive glenohumeral debridement was performed debriding the superior labrum, the biceps stump, the anterior labrum, the rotator interval, the exposed greater tuberosity, and the articular surfaces of the glenoid and humerus which had some fraying and fibrillation. The instruments were then placed in the subacromial space. The biceps was released from its screws slightly to allow for slightly more posterior positioning. Three medial row anchors were placed and passed. There was significant delamination. Dual layer fixation was used on all 3 anchors. The biceps tendon was secured to 1 anchor and additional 2.6 mm FiberTak was utilized to further tack down the delamination for total of 3 dual layer fixation, 1 biceps tenodesis on the knotless mechanism. The swedged sutures were then passed and secured to the lateral row. Because of the infraspinatus was involved, care was taken to mobilize the cuff posterior and anterior, especially laterally to allow for more anatomic reproduction of the footprint onto the tuberosity. The lateral edge fixation was used posteriorly with an Allis mechanism. Anteriorly, a link was utilized as well as the knotless mechanism which was passed in a ripstop type fashion to secure the tissue down to bone. The instruments were then removed from the shoulder. The distal clavicle was approached by exposing the distal clavicle. Subacromial decompression and bony acromioplasty were performed. The exposed distal clavicle was resected approximately 8-10 mm to ensure complete and adequate spacing between the acromion and the clavicle. The portals were then approximated with 4-0 Monocryl suture. Steri-Strips and a sterile dressing were applied. A sling was applied. She tolerated the procedure well. There were no complications. She awoke without difficulty and was taken to recovery room in stable condition. MD PATIENCE Serrato/ELDA #: [id number] THE ROAD DRIVER documented in this encounter Plan of Treatment Not on file documented as of this encounter Visit Diagnoses Diagnosis S/P rotator cuff repair- Primary Other postprocedural status Tear of left rotator cuff, unspecified tear extent, unspecified whether traumatic documented in this encounter Administered Medications Inactive Administered Medications - up to 3 most recent administrations Medication Order MAR Action Action Date Dose Rate Site 0.9% NaCl injection 3 mL 3 mL, Intracatheter, EVERY 8 HOURS, First dose on Claire 06/26/24 at 0730, Until Discontinued, Flush peripheral IV catheter with 3 mL of normal saline every 8 hours., Pre-op $ Given 06/26/2024 8:[address] 3 mL 0.9% NaCl irrigation solution PRN, Starting on Claire 06/26/24 at 0934, Until Claire 06/26/24 at 1057, Intra-op $ Given 06/26/2024 10:[address] 3,000 mL Operative Site $ Given 06/26/2024 10:[address] 3,000 mL O perative Site $ Given 06/26/2024 10:[address] 3,000 mL O perative Site acetaminophen (Tylenol) tablet 1,000 mg 1,000 mg, Oral, PRE-OP ONCE, 1 dose, On Claire 06/26/24 at 0815, Patient preference for lesser PRN pain meds may be honored when the patient requests a less strong medication, a lower dose, or a less intrusive route of administration when the lesser drug, dose and route have been ordered for the patient. This patient request must be documented in the MAR. If both oral and IV options are ordered for the same pain severity, give oral first unless patient cannot tolerate oral intake, Pre-op $ Given 06/26/2024 8:[address] 1,000 mg EPINEPHrine 1 MG/ML injection PRN, Starting on Claire 06/26/24 at 0915, Until Claire 06/26/24 at 1057, Intra-op $ Given 06/26/2024 9:[address]IVER 2 mL Operative Site $ Given 06/26/2024 9:[address] 2 mL Op erative Site famotidine (Pepcid) injection 20 mg 20 mg, Intravenous, PRE-OP ONCE, 1 dose, On Claire 06/26/24 at 0815, Dilute with 0.9% NaCl, D5W solution, or SWI to a volume of 5 to 10 mL and administer over at least 2 minutes., Pre-op $ Given 06/26/2024 8:[address] 20 mg lactated ringers infusion at 100 mL/hr, Intravenous, CONTINUOUS, Starting on Claire 06/26/24 at 0730, Until Claire 06/26/24 at 1057, Pre-op $ New Bag/Syringe 06/26/2024 10:[address] $ New Bag/Syringe 06/26/2024 8:[address] 100 mL /hr ondansetron (Zofran) injection 4 mg 4 mg, Intravenous, ONCE PRN, Nausea/Vomiting, 1 dose, Starting on Claire 06/26/24 at 1057, Until Claire 06/26/24 at 1123, First choice, PACU $ Given 06/26/2024 11:[address] 4 mg scopolamine (Transderm-Scop) 1 patch 1 patch, Administer over 72 Hours, ONCE, 1 dose, On Claire 06/26/24 at 0945, Apply patch behind the ear, do not cut patch, only 1 patch should be worn at a time and remove old patch before applying new patch.This patch may contain metal and is not compatible with MRI. Notify radiology of patch location upon arrival to MRI. Each patch contains 1.5 mg scopolamine base and is formulated to deliver 1 mg of scopolamine over 72 hours. $ Applied 06/26/2024 9:[address] 1 patch Behind Left Ear tranexamic acid (Cyklokapron) injection PRN, Starting on Claire 06/26/24 at 0958, Until Claire 06/26/24 at 1057, Intra-op $ Given 06/26/2024 9:[address] 2,000 mg Operative Site documented in this encounter Care Teams Machine Design Teacher Relationship Specialty Start Date End Date Fletcher Dockery MD [address] [place] [id number] PCP - General Family Medicine 06/03/24 documented as of this encounter
--- OUTSIDE RECORDS SUMMARY | 2024-06-27 05:21 | XMS_ITS | Encounter Summary ---
Author Organization [employer] Address [address] [place] [address] Care Team Providers Care Meal Miller Name Role Phone Ivanna Grigsby MD Primary Care Provider [phone] Encounter Details Date Type Department Care Team (Late st Contact Info) Description 08/01/2002 Outpatient Historical [facility] Roni Sneed MD [address] [place] [address] [place] [address] Er, Authorized P NO ADDRESS ON FILE MIGRAINE NOS W/O MENTN INTRACTABLE (Primary Dx) Social History Tobacco Use Types Packs/Day Years Used Date Smoking Tobacco: Never Assessed Comments Unknown Sex and Gender Information Value Date Recorded Sex Assigned at Not on file Legal Sex 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
--- OUTSIDE RECORDS SUMMARY | 2024-06-27 05:21 | XMS_ITS | Encounter Summary ---
Author Organization [employer] Address [address] [place] [address] Care Team Providers Care Die Reamer Name Role Phone Ivanna Grigsby MD Primary Care Provider [phone] Encounter Details Date Type Department Care Team (Late st Contact Info) Description 08/13/2007 Outpatient Historical [facility] John Betancourt MD [address] [facility] [address] [address] Unspecified Urinary Incontinence; Cystocele, Midline; Complication NEC, Device NEC; Rectocele; Female Stress Incontinence; Other Disorder of Muscle, Ligament, and Fascia; Unspecified Place of Occurrence; Abn React-Artif Implant; Localized Adiposity; Rheumatoid Arthritis (CMS/HCC); Anxiety State, Unspecified; Heartburn; Personal History of Allergy to Narcotic Agent; Personal History of Allergy to Sulfonamides Social History Tobacco Use Types Packs/Day Years Used Date Smoking Tobacco: Never Assessed Comments Unknown Sex and Gender Information Value Date Recorded Sex Assigned at Not on file Legal Sex Female 3:41 AM LOCUM TENENS PSYCHIATRIST Gender Identity Not on file Sexual Orientation Not on file documented as of this encounter Plan of Treatment Not on file documented as of this encounter Procedures Procedure Name Priority Date/Time Associated Diagnosis Comments PATHOLOGY Routine 09/20/2007 3:36 PM CDT POC , URINE Routine 09/20/2007 9:10 AM CDT CBC WITH DIFFERENTIAL Routine 09/06/2007 10:26 AM CDT BASIC METABOLIC PANEL Routine 09/06/2007 10:26 AM CDT documented in this encounter Results * PATHOLOGY (09/20/2007 3:36 PM CDT) FINAL REPORT [facility] [address], [place] [address] Patient: MAL EAST : 1960 Procedure Date: 09/20/2007 Accession Date: 09/20/2007 Case No: [id number] Ordering Dr: JOHN BETANCOURT Case types AW, BW, FW, NW and SH are performed by [facility], [place], [place] SURGICAL PATHOLOGY & NON-GYNECOLOGIC CYTOPATHOLOGY REPORT DIAGNOSIS VAGINA AND SKIN, EXCISION: - CHRONIC INFLAMMATION AND PARAKERATOSIS. Specimen Description: Vaginal wall. Operative Procedure: Anterior/posterio r repair, perineoplasty, sling replacement. Patient Information/Histor y/Diagnosis: Urinary incontinence. Gross: Received in a single container labeled Mal East., vaginal wall are six tee-pink, irregular pieces of skin and mucosa which range from 0.7 x 0.5 x 0.3 cm up to 11.3 x 1.2 x 0.2-cm. The fragments measure 11.3 x 2.0 x 0.2 cm in aggregate. Sales Contractor sections are submitted in A1 and A2. [facility] 09.20.2007 04:19 pm Microscopic: The slide is labeled [id number] and Mal East. The vaginal mucosa shows mild chronic inflammation and parakeratosis. The sample includes skin and skeletal muscle. There is a dermal chronic inflammatory infiltrate. DJG/[facility] 09.23.2007 12:07 pm Staging Form: No. ELECTRONIC SIGNATURE FOR IVANNA HUDSON M.D.- 09/23/07 04:30 pm INTERFACE SYSTEM 09/20/2007 3:36 PM CDT John Betancourt MD PATHOLOGY/CYTOLOGY GUCCI KEANE Final Result INTERFACE SYSTEM Refer to clinic/hospital department * POC , URINE (09/20/2007 9:10 AM CDT) , URINE POC Negative Negative [facility] Urine specimen (specimen) 09/20/2007 9:10 AM CDT 09/20/2007 9:10 AM CDT John Betancourt MD POINT OF CARE TESTING F inal Result Performing Organization Address City/[facility]/ZIP Co de Phone Number [facility] CLIA# [id number] [address] [place] [address] * CBC WITH DIFFERENTIAL (09/06/2007 10:26 AM CDT) HEMATOCRIT 40.3 35.5 - 44.0 % [facility] RDW-STDEV 44.6 37.1 - 48.7 fL [facility] RBC 4.38 3.90 - 4.90 M/uL [facility] MCHC 32.8 31.5 - 35.5 % [facility] MCV 92.0 82.0 - 99.0 fL [facility] PLATELETS 262 140 - 350 K/uL [facility] HEMOGLOBIN 13.2 11.8 - 14.8 g/dL [facility] RDW 13.4 11.5 - 14.5 % [facility] WBC 5.9 4.0 - 9.8 K/uL [facility] MCH 30.1 27.2 - 32.6 pg [facility] MPV 10.4 9.3 - 12.4 fL [facility] BASOPHILS 0 0 - 2 % [facility] BASOPHILS ABSOLUTE 0.01 0.00 - 0.20 K/uL [facility] MONOCYTES 10 3 - 13 % [facility] MONOCYTE ABSOLUTE 0.60 0.10 - 1.30 K/uL [facility] NEUTROPHILS 48 45 - 70 % [facility] NEUTROPHIL ABSOLUTE 2.78 1.90 - 7.00 K/uL [facility] EOSINOPHILS 2 0 - 7 % [facility] EOSINOPHIL ABSOLUTE 0.09 0.00 - 0.70 K/uL [facility] LYMPHOCYTES 41 16 - 45 % [facility] LYMPHOCYTE ABSOLUTE 2.37 0.70 - 4.50 K/uL [facility] Blood specimen (specimen) 09/06/2007 10:26 AM CDT 09/06/2007 12:17 PM CDT us John Betancourt MD HEMATOLOGY ORDERABLES E dited INTERFACE SYSTEM Refer to clinic/hospital department [facility] [address] [place] [address] * (ABNORMAL) BASIC METABOLIC PANEL (09/06/2007 10:26 AM CDT) BUN 13 6 - 20 mg/dL [facility] CHLORIDE 107 96 - 108 mmol/L [facility] GLUCOSE 63(L) 65 - 99 mg/dL [facility] SODIUM 138 135 - 145 mmol/L [facility] CALCIUM 8.7 8.4 - 10.2 mg/dL [facility] CO2 24 22 - 30 mmol/L [facility] CREATININE 0.73 0.51 - 0.95 mg/dL [facility] POTASSIUM 4.1 3.5 - 4.9 mmol/L [facility] GFR, >60 >=60 mL/min/1.7 sq meter [facility] GFR >60 >=60 mL/min/1.7 sq meter [facility] Comment: Estimated GFR rate interpretative information for both Americans and non- Americans is available on the [facility] Intranet at: [email or web address] Select: Lab Policies and Procedures Select: Reference Ranges - GFR Blood specimen (specimen) 09/06/2007 10:26 AM CDT 09/06/2007 12:17 PM CDT us John Betancourt MD CHEMISTRY ORDERABLES Ed ited [facility] [address] [place] [address] documented in this encounter Visit Diagnoses Diagnosis Unspecified urinary incontinence Cystocele, midline Other complications due to other internal prosthetic device, implant, and graft Rectocele Female stress incontinence Other disorder of muscle, ligament, and fascia Unspecified place of occurrence Surgical operation with implant of artificial internal device causing abnormal patient reaction, or later complication, without mention of misadventure at time of operation Localized adiposity Rheumatoid arthritis(714.0) (CMS/HCC) Rheumatoid arthritis Anxiety state, unspecified Heartburn Personal history of allergy to narcotic agent Personal history of allergy to sulfonamides documented in this encounter Care Teams Die Reamer Relationship Specialty Start Date End Date Ivanna Grigsby MD [address] [facility]ATOLOGY, [address] [address] PCP - General Rheumatology 09/11/11 documented as of this encounter
--- OUTSIDE RECORDS SUMMARY | 2024-06-27 05:21 | XMS_ITS | Encounter Summary ---
Author Organization [employer] Address 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
--- OUTSIDE RECORDS SUMMARY | 2024-06-27 05:21 | XMS_ITS | Encounter Summary ---
Author Organization [facility] Address [address] [place] [address] Care Team Providers Care Stone Unloader Name Role Phone Fletcher Dockery MD Primary Care Provider [phone] Reason for Referral * (Routine) - Open Specialty Diagnoses / Procedures Referred By Christian saldaña Referred To Contact Procedures Follow up [place] [address] [place] [address] [place] [address] [place] [address] Referral ID Status Reason Start Date Expiration Date Visits Re quested Visits Authorized [id number] Open 06/26/2024 06/26/2025 1 1 ITURE DESIGNER Reason for Visit * Auth/Cert (Routine) Specialty Diagnoses / Procedures Referred By Christian saldaña Referred To Contact Diagnoses Tear of left rotator cuff, unspecified tear extent, unspecified whether traumatic Tear of left rotator cuff, unspecified tear extent, unspecified whether traumatic [M75.102] Procedures IL SHOULDER ARTHROSCOPY IL SCOPE SHLDR SURG;W/ROTOR CUFF IL ARTHROSCOPY BICEPS TENODESIS IL SHOULDER ARTHROSCOPY ARTHROSCOPY SHOULDER ARTHROSCOPY SHOULDER ROTATOR CUFF REPAIR (RCR) ARTHROSCOPY SHOULDER BICEP TENODESIS ARTHROSCOPY SHOULDER DISTAL CLAVICULECTOMY (LEYDA) Referral ID Status Reason Start Date Expiration Date Visits Re quested Visits Authorized [id number] 1 1 Encounter Details Date Type Department Care Team (Late st Contact Info) Description 06/26/2024 7:27 AM FURNITURE DESIGNER - 06/26/2024 11:59 PM FURNITURE DESIGNER Hospital Encounter [facility] - General Surgery [address] [facility], [address] [place], [place] [id number] [place]ef[place] [address] [place] [address] Surgery General Discharge Disposition: Home or Self Care Social History Tobacco Use Types Packs/Day Years [...] Comments Blood Pressure 146/84 06/26/2024 11:51 AM FURNITURE DESIGNER Pulse 78 06/26/2024 12:01 PM FURNITURE DESIGNER Temperature 36 C (96.8 F) 06/26/2024 10:58 AM FURNITURE DESIGNER Respiratory Rate 14 06/26/2024 12:01 PM FURNITURE DESIGNER Oxygen Saturation 94% 06/26/2024 12:01 PM FURNITURE DESIGNER Inhaled Oxygen Concentration - - Weight 65.6 kg (144 lb 9.6 oz) 06/26/2024 7:35 A M FURNITURE DESIGNER Height - - Body Mass Index 27.32 06/11/2024 8:55 AM FURNITURE DESIGNER documented in this encounter Medications at Time [...] the history and physical. PATIENT NAME: Mal Sanches Garfield CHIEF COMPLAINT: Left shoulder pain Right shoulder [...] She is right-hand dominant. 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 She has pain at night. She has [...] Lexapro, diclofenac, folic acid, methotrexate, Humira, trazodone. [place]. ALLERGIES: Fentanyl, sulfa, codeine SOCIAL HISTORY: She [...] belly press Negative speed's Mild pain with [place]'s Negative cross arm adduction On the right [...] dated 05/04/2024 was reviewed. This is from [facility]. This reveals a full-thickness rotator cuff tear [...] prescription for a lesser quantity than prescribed. ITURE DESIGNER documented in this encounter OR Notes * Operative - Estefanía Espinoza MD - 06/26/2024 11:18 AM CST [facility] REPORT PATIENT: : MAL EAST MR#: [id number] ADMIT DATE: 06/26/2024 CSN: [id number] DATE OF SURGERY: 06/26/2024 : 1960 PHYSICIAN: [...] decompression and acromioplasty. SURGEON: Estefanía Espinoza MD. INCINERATOR PLANT LABORER: Margoth Bunn. The skilled assistance of the PA-C/RN was necessary for the effective and successful completion of this case. The physician facilities assistant was essential for the proper positioning, [...] in stable condition. MD PATIENCE Serrato/ELDA #: [id number] ITURE DESIGNER documented in this encounter Plan of Treatment Not on file documented as of this encounter Visit Diagnoses Diagnosis S/P rotator cuff repair- Primary Other postprocedural status documented in this encounter Administered Medications Inactive [...] hours., Pre-op $ Given 06/26/2024 8:10 AM FURNITURE DESIGNER 3 mL acetaminophen (Tylenol) tablet 1,000 mg 1,000 mg, [...] intake, Pre-op $ Given 06/26/2024 8:09 AM FURNITURE DESIGNER 1,000 mg famotidine (Pepcid) injection 20 mg 20 mg, Intravenous, PRE-OP ONCE, 1 dose, On Claire 06/26/24 at 0815, Dilute with 0.9% NaCl, D5W solution, or SWI to a volume of 5 to 10 mL and administer over at least 2 minutes., Pre-op $ Given 06/26/2024 8:10 AM FURNITURE DESIGNER 20 mg lactated ringers infusion at 100 mL/hr, Intravenous, CONTINUOUS, Starting on Claire 06/26/24 at 0730, Until Claire 06/26/24 at 1057, Pre-op $ New Bag/Syringe 06/26/2024 10:45 AM FURNITURE DESIGNER $ New Bag/Syringe 06/26/2024 8:03 AM FURNITURE DESIGNER 100 mL /hr ondansetron (Zofran) injection 4 mg 4 mg, Intravenous, ONCE PRN, Nausea/Vomiting, 1 dose, Starting on Claire 06/26/24 at 1057, Until Claire 06/26/24 at 1123, First choice, PACU $ Given 06/26/2024 11:23 AM FURNITURE DESIGNER 4 mg scopolamine (Transderm-Scop) 1 patch 1 [...] 72 hours. $ Applied 06/26/2024 9:19 AM FURNITURE DESIGNER 1 patch Behind Left Ear documented in this encounter Care Teams Stone Unloader Relationship Specialty Start Date End Date Fletcher Dockery MD [address] [place] [phone] PCP - General Family Medicine 06/03/24 documented as of this encounter
--- OUTSIDE RECORDS SUMMARY | 2024-06-27 05:22 | XMS_ITS | Encounter Summary ---
Author Organization [facility] Address [address] [place] [address] Phone Care Team Providers Care Restaurant Expeditor Name Role Phone Sally Sutton MD Unavailable Fletcher Dockery MD Primary Care Provider [phone] Encounter Details Date Type Department Care Team (Late st Contact Info) Description 03/13/2024 Orders Only [facility] Scanning, Provider Social History Tobacco Use Types Packs/Day Years Used Date Smoking Tobacco: Former Cigarettes - 2014 Smokeless Tobacco: Never Alcohol Use Standard Drinks/Week Comments Yes 0 (1 standard drink = 0.6 oz pur e alcohol) very little AUDIT-C Answer Date Recorded Frequency of Alcohol Consumption Not on file 07/04/2023 Q2: How many drinks containi ng alcohol do you have on a typical day when you are drinking? 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 Author CCM Chronic Pain Care Plan Chronic Care Management Worsening( 1:16 PM TRENCH DIGGING MACHINE OPERATOR) Yeny Barros RN Note: Problem: Chronic Pain Goals: 1. Minimize further functional decline 2. Maximize quality of life 3. Control pain Strategies: - Activity/exercise program recommendation - Conservative stepwise pain medicine strategy with multi-disciplinary approach - Recommend healthy lifestyle strategies and compensatory methods as needed documented as of this encounter Procedures Procedure Name Priority Date/Time Associated Diagnosis Comments SCAN - RADIOLOGY/IMAGING 03/13/2024 documented in this encounter Results * SCAN - RADIOLOGY/IMAGING (03/13/2024) Anatomical Region Laterality Modality Other us Provider Scanning Edited Result - Final documented in this encounter Visit Diagnoses Not on filedocumented in this encounter Care Teams Restaurant Expeditor Relationship Specialty Start Date End Date Fletcher Dockery MD [address] [place] [address] PCP - General Family Medicine 12/13/21 Sally Sutton MD [address] [place] [address] Medical Oncologist/Cushion Sewer Medical Oncology 07/05/20 documented as of this encounter
--- OUTSIDE RECORDS SUMMARY | 2024-06-27 05:22 | XMS_ITS | Clinical Summary ---
Author Organization [employer] Address [address] [place] [address] Care Team Providers Care Investment Associate Name Role Phone Ivanna Grigsby MD Primary Care Provider [phone] Allergies Active Allergy Reactions Criticality Noted Date Comments Codeine Itching Low 08/27/2009 Fentanyl Nausea and Vomiting,Headache Low 08/27/2009 Sulfa (Sulfonamide Antibiotics) Other (See Comments) 08/27/2009 Hx rheumatoid arthritis Medications citalopram (CELEXA) 20 mg Oral tablet Take 20 mg by mouth daily at bedtime. Active ESOMEPRAZOLE MAGNESIUM (NEXIUM ORAL) Take by mouth daily. Active cetirizine (ZYRTEC) 10 mg Oral tablet Take 10 mg by mouth daily. Active tamoxifen (NOLVADEX) 20 mg Oral tablet Take 20 mg by mouth daily. Active clonazePAM (KLONOPIN) 1 mg Oral tablet Take 1 mg by mouth 2 times daily. Active folic acid (FOLVITE) 1 mg Oral tablet Take 1 mg by mouth daily. Active ALPRAZolam (XANAX) 0.25 mg Oral tablet Take 2 Tabs by mouth nightly as needed for Insomnia. 30 Tab 1 01/10/2012 Active gabapentin (NEURONTIN) 100 mg Oral tablet Take 100 mg by mouth 2 times daily. Active gabapentin (NEURONTIN) 600 mg Oral tablet Take 600 mg by mouth daily. At hs Active Active Problems Problem Noted Date Diagnosed Date Breast cancer in situ 04/03/2012 Device, implant, or graft complication 2 Breast cancer 09/11/2011 Family History Medical History Relation Name Comments Other Father blood clot Healthy Mother Relation Name Status Comments Father Mother Alive Social History Tobacco Use Types Packs/Day Years Used Date Smoking Tobacco: Former Cigarettes Smokeless Tobacco: Never Comments:quit 12/2011 Alcohol Use Standard Drinks/Week Comments No 0 (1 standard drink = 0.6 oz pur e alcohol) Comments Unknown Sex and Gender Information Value Date Recorded Sex Assigned at Not on file Legal Sex Female 3:41 AM GROUND NUCLEAR WEAPONS ASSEMBLY OFFICER Gender Identity Not on file Sexual Orientation Not on file Occupation Industry Job Start Date Job End Date Not on file Not on file Not on file Not on file Last Filed Vital Signs Vital Sign Reading Time Taken Comments Blood Pressure 171/141 01/07/2013 9:17 AM CDT Pulse 80 07/02/2012 10:14 AM GROUND NUCLEAR WEAPONS ASSEMBLY OFFICER Temperature 37.3 C (99.1 F) 04/03/2012 6:00 PM GROUND NUCLEAR WEAPONS ASSEMBLY OFFICER Respiratory Rate 16 07/02/2012 10:14 AM GROUND NUCLEAR WEAPONS ASSEMBLY OFFICER Oxygen Saturation 96% 04/03/2012 6:00 PM GROUND NUCLEAR WEAPONS ASSEMBLY OFFICER Inhaled Oxygen Concentration - - Weight 66.7 kg (147 lb) 01/07/2013 9:17 AM CDT Height 154.9 cm (5' 1 ) 01/07/2013 9:17 AM CDT Body Mass Index 27.78 01/07/2013 9:17 AM CDT Plan of Treatment Health Maintenance Due Date Last Done Comments DTAP/TDAP/TD VACCINES (1 - Tdap) 1981 CERVICAL CANCER SCREENING 1992 BREAST CANCER SCREENING 2002 COLORECTAL SCREENING 2007 Colorectal Cancer Screening 2007 FIT-DNA Q 3 years 2007 FIT/FOBT Q 1 year 2007 Flex Sig/CT Colonography Q 5 years 2007 ZOSTER VACCINE (1 of 2) 2012 INFLUENZA VACCINE (#1) 2023 RSV VACCINE (60+ or ) (1 - 1-dose 75+ series) 2037 Medical Devices Implanted Type Area Fuel Cell Binder Device Identifier Shelf Expiration Date Model / Serial / Lot Vascular Radiologist Tissue Mammary Med 550ml [id number] - [id number] Implanted:Qty : 1 on 09/11/2011 by Santiago Kruse MD at [facility] Mammary Left: Breast MENTOR TYSHAWN 06/14/2015 [id number] / [id number] Description:200ml injected i nto vest backer on left breast. Vascular Radiologist Tissue Mammary Med 650ml [id number] - [id number] Implanted:Qty : 1 on 01/10/2012 by Santiago Kruse MD at [facility] Mammary Right: Breast MENTOR TYSHAWN 11/11/2015 [id number] / / [id number] Implanted:Qty : 1 on 04/03/2012 by Santiago Kruse MD at [facility] Right: Breast 03/13/2017 / [id number] / [id number] [place] Smooth Round High Profile Implanted:Qty : 1 on 04/03/2012 by Santiago Kruse MD at [facility] 02/11/2017 [id number] / [id number] / [id number] - Bladder Slings And Tapes - 1 - Sling Desara System [id number] Implanted:Qty : 1 on 09/03/2009 at [facility] Sling N/A: Vagina [employer] 06/05/2014 [id number] / [id number] / [id number] Description:Vaginal [place] Explanted Type Area Fuel Cell Binder Device Identifier Shelf Expiration Date Model / Serial / Lot Vascular Radiologist Tissue Mammary Med 550ml [id number] - [id number] Implanted:Qty: 1 on 09/11/2011 by Santiago Kruse MD at [facility] Explanted:Qty: 1 on 01/10/2012 at [facility] Mammary Right: Breast MENTOR TYSHAWN [id number] / [id number] Description:200ml injected i nto vest backer for Rt. breast Insurance BCBS BLUE ACCESS/TRUE BLUE PPO Advance Directives For more information, please contact: [phone] * Full Code (Latest Code Status on File) Date Activated Date Inactivated Comments 04/03/2012 10:08 AM 04/03/2012 9:47 PM * Full Code Date Activated Date Inactivated Comments 04/03/2012 8:27 AM 04/03/2012 10:08 AM * Full Code Date Activated Date Inactivated Comments 04/03/2012 7:37 AM 04/03/2012 8:27 AM * Full Code Date Activated Date Inactivated Comments 01/10/2012 2:08 PM 01/10/2012 6:33 PM * Full Code Date Activated Date Inactivated Comments 01/10/2012 1:44 PM 01/10/2012 2:08 PM Care Teams Investment Associate Relationship Specialty Start Date End Date Ivanna Grigsby MD [address] [facility], [address] [address] PCP - General Rheumatology 09/11/11
--- OUTSIDE RECORDS SUMMARY | 2024-06-27 05:22 | XMS_ITS | Encounter Summary ---
Author Organization [facility] Healthcare Address [address] [place] [address] Care Team Providers Care Hand Ii Cutter Name Role Phone Sally Sutton MD Unavailable Fletcher Dockery MD Primary Care Provider [phone] Encounter Details Date Type Department Care Team (Late st Contact Info) Description 05/20/2024 Telephone [facility] [place] [facility] [address] [facility] Advanced Medicine [address] [place] [address] Nedra Antonio MD [address] [facility] [address] [facility] [id number] [place] [address] Social History Tobacco Use Types Packs/Day Years Used Date Smoking Tobacco: Former Cigarettes 1 - 2014 Smokeless Tobacco: Never Alcohol Use Standard Drinks/Week Comments Yes 0 (1 standard drink = 0.6 oz pur e alcohol) very little AUDIT-C Answer Date Recorded Q1: How often do you have a drink containing alc ohol? 2-4 times a month 04/21/2024 Q2: How many drinks containi ng alcohol do you have on a typical day when you are drinking? 1 or 2 04/21/2024 Q3: How often do you have si x or more drinks on one occasion? 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 Author CCM Chronic Pain Care Plan Chronic Care Management Worsening( 1:16 PM EDITOR SCHOOL PHOTOGRAPH) Yeny Barros, KUSH Note: Problem: Chronic Pain Goals: 1. Minimize further functional decline 2. Maximize quality of life 3. Control pain Strategies: - Activity/exercise program recommendation - Conservative stepwise pain medicine strategy with multi-disciplinary approach - Recommend healthy lifestyle strategies and compensatory methods as needed documented as of this encounter Visit Diagnoses Not on filedocumented in this encounter Care Teams Hand Ii Cutter Relationship Specialty Start Date End Date Fletcher Dockery MD [address] [place] [address] [address] [place] [address] PCP - General Family Medicine 12/13/21 Sally Sutton MD [address] [place] [address] [address] [place] [address] Medical Oncologist/Prison Guard Supervisor Medical Oncology 07/05/20 documented as of this encounter
--- OUTSIDE RECORDS SUMMARY | 2024-06-27 05:22 | XMS_ITS | Encounter Summary ---
Author Organization [facility] Address [address] [place] [address] Phone Care Team Providers Care Hard Tile Setter Name Role Phone Sally Sutton MD Unavailable Fletcher Dockery MD Primary Care Provider [phone] Encounter Details Date Type Department Care Team (Latest Contact Info) Description 02/10/2022 Orders Only [facility] ONCOLOGY Scanning, Provider Social History Tobacco Use Types Packs/Day Years Used Date Smoking Tobacco: Former Cigarettes - 2014 Smokeless Tobacco: Never Alcohol Use Standard Drinks/Week Comments Yes 0 (1 standard drink = 0.6 oz pur e alcohol) very little AUDIT-C Answer Date Recorded Q1: How often do you have a drink containing alc ohol? 2-4 times a month 02/09/2022 Q2: How many drinks containi ng alcohol do you have on a typical day when you are drinking? 1 or 2 02/09/2022 Q3: How often do you have si x or more drinks on one occasion? 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 Author CCM Chronic Pain Care Plan Chronic Care Management Worsening( 1:16 PM ENVIRONMENTAL STUDIES DEPARTMENT CHAIR) Yeny Barros, KUSH Note: Problem: Chronic Pain Goals: 1. Minimize further functional decline 2. Maximize quality of life 3. Control pain Strategies: - Activity/exercise program recommendation - Conservative stepwise pain medicine strategy with multi-disciplinary approach - Recommend healthy lifestyle strategies and compensatory methods as needed documented as of this encounter Procedures Procedure Name Priority Date/Time Associated Diagnosis Comments SCAN - RADIOLOGY/IMAGING 02/10/2022 documented in this encounter Results * SCAN - RADIOLOGY/IMAGING (02/10/2022) Anatomical Region Laterality Modality Other us Provider Scanning Final Result documented in this encounter Visit Diagnoses Not on filedocumented in this encounter Care Teams Hard Tile Setter Relationship Specialty Start Date End Date Fletcher Dockery MD [address] [place] [address] PCP - General Family Medicine 12/13/21 Sally Sutton MD [address] [place] [address] Medical Oncologist/Investor Relations Analyst Medical Oncology 07/05/20 documented as of this encounter
--- OUTSIDE RECORDS SUMMARY | 2024-06-27 05:22 | XMS_ITS | Encounter Summary ---
Author Organization [facility] Healthcare Address [address] [place] [address] Care Team Providers Care Media Monitor Name Role Phone Sally Sutton MD Unavailable Fletcher Dockery MD Primary Care Provider [phone] Reason for Visit * Reason Onset Date Comments question 12/29/2021 Encounter Details Date Type Department Care Team (Late st Contact Info) Description 12/29/2021 Telephone [facility] the [place] [facility] [address] [facility] Advanced Medicine [address] [place] [address] Nedra Antonio MD [address] [facility] [address] [facility] [phone] [place], [place] [id number] question Social History Tobacco Use Types Packs/Day Years Used Date Smoking Tobacco: Former Smokeless Tobacco: Never Alcohol Use Standard Drinks/Week Comments Yes 0 (1 standard drink = 0.6 oz pur e alcohol) very little AUDIT-C Answer Date Recorded Q1: How often do you have a drink containing alc ohol? 2-4 times a month 12/19/2021 Q2: How many drinks containi ng alcohol do you have on a typical day when you are drinking? 1 or 2 12/19/2021 Q3: How often do you have si x or more drinks on one occasion? 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 Author CCM Chronic Pain Care Plan Chronic Care Management Worsening( 1:16 PM MAINTENANCE OPERATOR) No Yeny Porter RN Note: Problem: Chronic Pain Goals: 1. Minimize further functional decline 2. Maximize quality of life 3. Control pain Strategies: - Activity/exercise program recommendation - Conservative stepwise pain medicine strategy with multi-disciplinary approach - Recommend healthy lifestyle strategies and compensatory methods as needed documented as of this encounter Visit Diagnoses Not on filedocumented in this encounter Care Teams Media Monitor Relationship Specialty Start Date End Date Fletcher Dockery MD [address] [place] [address] PCP - General Family Medicine 12/13/21 Sally Sutton MD [address] [place] [address] Medical Oncologist/Job Recruiter Medical Oncology 07/05/20 documented as of this encounter
--- OUTSIDE RECORDS SUMMARY | 2024-06-27 05:22 | XMS_ITS | Continuity of Care Document ---
Author Organization [facility] Address [address] [place] [address] [address] [place] [address] Phone Care Team Providers Care Sql Developer Dba Name Role Phone Reyna Unger MD Unavailable Unavailable Allergies, Adverse Reactions, Alerts Substance Reaction Status Criticality sulfanilamide Active No Information codeine Active No Information Medications Medication Instructions Dosage Effective Dates (start - stop) Status Comments ATIVAN (unknown strength) Not Available - Active TREXALL (unknown strength) Not Available - Active TOPIRAMATE (unknown strength) Not Available - Active ABILIFY (unknown strength) Not Available - Active FOLIC ACID (unknown strength) Not Available - Active VITAMIN D2 (unknown strength) Not Available - Active Procedures Procedure Date POSTOP FOLLOW-UP VISIT POSTOP FOLLOW-UP VISIT POSTOP FOLLOW-UP VISIT OFFICE/OUTPATIENT VISIT [facility] Advance Directives Directive Yes / No Effective Date File Name No Information Encounters Encounter Description Practice Location Reason(s) For Visit Diagnoses Date Provider Providers Copied on Encounter [facility], [address] [place] [address], [address], tel:[phone] [facility] Trigger finger [address] [place], [place], [id number] . tel: [phone] [facility], [address], [address], tel:[phone] [facility] Trigger finger [address]. [address] [place], [place], [id number] . tel: [phone] [facility], [address] [place] [address], [address], tel:[phone] [facility] PO L thumb,R thumb (chief complaint) Trigger finger Nov-0 201 [address]a. [address] [place], [place], [id number] . tel: [phone] [facility], [address] [place] [address], [facility], tel:[phone] [facility] Trigger finger September-0 4 [address] Reyna. [address] [place], [place], [id number] . tel: [phone] OFFICE/OUTPAT IENT VISIT [facility], [address] [place] [address], [facility], tel:[phone] [facility] Trigger finger Aug-0 8201 [address] [place], [place], [id number] . tel: [phone] [facility], [address] [place] [address], [facility], tel:[phone] [facility] Trigger finger Aug-0 8201 [address] [place], [place], [id number] . tel: [phone] Family History Family Member Type Diagnosis Age At Onset No Information Payers Payer name Insurance type Covered constitution party ID Authoriza tion(s) No Information Social History Type Description Quantity Date Captured Comments Alcohol Use Details Unknown Caffeine Use Details Unknown Tobacco Use Status Ex-smoker Smoking Status Former smoker Smoking Tobacco Use Details Cigarette: No Details Available Cigarette: No Details Available Sex Female Chief Complaint And Reason For Visit No Information Reason For Referral Reason For Referral No Information Plan Of Treatment Date Type Action Status Referral Ordered: RADEX FNGR MINIMUM 2 VIEWS Bilateral ordered History Of Present Illness Encounter Date Complaint History Of Prese nt Illness PO L thumb,R thumb Functional Status Date Functional Assessmen t No Information Instructions Date Instruction Additional Infor keya Apply ice as instructed. Related to Trigger finger Activity as tolerated. Related t o Trigger finger Take medications as directed. Re lated to Trigger finger Patient directed active and pass lawrence ROM Assessments Type Assessment Date assessment Trigger finger Patient Care Teams Name Effective Dates (start - stop) Status Members No Information
--- OUTSIDE RECORDS SUMMARY | 2024-06-27 05:22 | XMS_ITS | Encounter Summary ---
Author Organization [facility] Address [address] [place] [address] Phone Care Team Providers Care Warehouser Name Role Phone David Bush MD Primary Care Provider [phone] Sally Sutton MD Unavailable Fletcher Dockery MD Primary Care Provider [phone] Encounter Details Date Type Department Care Team (Late st Contact Info) Description 12/01/2019 Orders Only [facility] RHEUMATOLOGY Scanning, Provider Social History Tobacco Use Types Packs/Day Years Used Date Smoking Tobacco: Former Smokeless Tobacco: Never Alcohol Use Standard Drinks/Week Comments Yes 0 (1 standard drink = 0.6 oz pur e alcohol) very little Comments No Sex and Gender Information Value Date Recorded Sex Assigned at Not on file Legal 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 Female 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 Gender Identity Female 03/13/2018 3:16 PM CDT Sexual Orientation Not on file documented as of this encounter Plan of Treatment Not on file documented as of this encounter Procedures Procedure Name Priority Date/Time Associated Diagnosis Comments SCAN - LABS 12/01/2019 documented in this encounter Results * SCAN - LABS (12/01/2019) us Provider Scanning Final Result documented in this encounter Visit Diagnoses Not on filedocumented in this encounter Additional Health Concerns Infection Onset Date Last Indicated Resolved Time COVID: Suspected 04/21/2021 04/21/2021 04/21/2021 8:01 PM PRODUCTION BROACHING MACHINE OPERATOR documented as of this encounter Care Teams Warehouser Relationship Specialty Start Date End Date David Bush MD [address] [place] [address] PCP - General Family Medicine 09/11/18 12/12/21 Fletcher Dockery MD [address] [facility] [address] [place], [place] [address] PCP - General Family Medicine 12/13/21 Sally Sutton MD [address] [facility] [address] [place] [address] Medical Oncologist/Primary Therapist Medical Oncology 07/05/20 documented as of this encounter
--- OUTSIDE RECORDS SUMMARY | 2024-06-27 05:22 | XMS_ITS | Clinical Summary ---
Author Organization [facility] Address [address] [place] [address] Care Team Providers Care Manager French Name Role Phone Sally Sutton MD Unavailable Fletcher Dockery MD Primary Care Provider [phone] Allergies Active Allergy Reactions Criticality Noted Date Comments Codeine Nausea only,Other (See comments),Itching Low 08/27/2009 Reaction: Other Fentanyl Headache,Nausea And Vomiting Low 08/27/2009 Sulfa (Sulfonamide Antibiotics) Headache,Other (See comments) Low 08/27/2009 Hx rheumatoid arthritis Medications estradiol (ESTRACE) 0.01 % (0.1 mg/gram) vaginal cream Insert 2 g into the vagina Uses on Tuesdays and 2 9 Active escitalopram (LEXAPRO) 20 mg tabletIndicatio ns:major depressive disorder Take 1 tablet (20 mg total) by mouth every morning 1 Active traZODone (DESYREL) 100 mg tablet Take 1 tablet (100 mg total) by mouth daily as needed 2 Active buPROPion XL (WELLBUTRIN XL) 150 mg 24 hr tablet Take 1 tablet (150 mg total) by mouth every morning 3 Active Myrbetriq 25 mg tablet extended release 24 hr Take 1 tablet (25 mg total) by mouth daily 4 Active adalimumab (Humira,CF, Pen) 40 mg/0.4 mL pen injector kitIndications: Rheumatoid Arthritis Inject 0.4 mL (40 mg total) under the skin every 14 (fourteen) days 6 each 3 4 Active folic acid (FOLVITE) 1 mg tablet TAKE 1 TABLET(1 MG) BY MOUTH DAILY 30 tablet 5 4 Active methotrexate 2.5 mg tablet TAKE 8 TABLETS BY MOUTH EVERY 7 DAYS 103 tablet [address] (VOLTAREN) 75 mg EC tablet Take 1 tablet (75 mg total) by mouth 2 (two) times a day 4 Active HYDROcodone-fred taminophen (NORCO) 5-325 mg per tablet Take by mouth every 6 (six) hours as needed 4 Active Active Problems Problem Noted Date Diagnosed Date Rotator cuff tear arthropathy of left shoulder 1 06/22/2023 Foraminal stenosis of cervical region 04/21/2024 Diarrhea due to drug 02/06/2024 Acute pain of left shoulder 12/25/2022 Assessment & Plan (12/25/2022 8:50 AM CDT): Pain consistent with supraspinatus tendinopathy as full preservation of range of movement. She can not take an NSAID. I would like to obtain plain films today and then will set up for physical therapy but this does not seem inflammatory in nature S/P spinal fusion 02/21/2022 Degenerative scoliosis 01/18/2022 Overview (01/18/2022): Added automatically from request for surgery [id number] Spinal stenosis of lumbar region with radiculopa thy 01/18/2022 Overview (01/18/2022): Added automatically from request for surgery [id number] Scoliosis of lumbar spine 12/19/2021 Chronic left-sided low back pain without sciatic a 11/07/2021 Lumbar radiculopathy - Left 11/07/2021 COVID-19 virus infection 08/16/2020 Acquired trigger finger of both ring fingers 09/2020 Carbuncle of nasal septum 12/29/2019 Assessment & Plan (12/29/2019 5:28 PM CDT): Will treat with doxycycline 100 mg b.i.d. Radial styloid tenosynovitis (de quervain) 05/26 Assessment & Plan (05/26/2019 7:06 PM INFORMATICA DEVELOPER): I discussed with the patient that I feel this is an overuse syndrome in her. I recommended wearing a neutral wrist splint and if not improving, she will need to have her 1st ends extensor compartment injected. I have discussed with her that she needs to rest this arm for at least a week. I do not feel that it is part of her rheumatoid arthritis. Pelvic floor dysfunction in female 03/11/2018 Anxiety 10/29/2017 Rheumatoid arthritis involvi ng multiple sites with positive rheumatoid factor ([facility]) 10/29/2017 Assessment & Plan (12/25/2022 8:51 AM CDT): Last visit did not show evidence of progressive inflammatory disease but she is developing significant osteoarthritic changes in the D IP joints but has evidence of synovitis today in her thumb MCPs. We will use Voltaren gel and she will continue to use Tylenol with rare use of Advil until she is allowed to in February. Unless she has elevation of systemic markers, I do not plan to change regimen at this time Assessment & Plan (02/16/2020 1:11 PM CDT): She is currently off steroids by almost 3 weeks she and her disease looks quiet on her current dose of methotrexate. We reviewed her monitoring laboratories and these are stable we will continue her current regimen. Influenza vaccine given today. Assessment & Plan (12/29/2019 5:28 PM CDT): Clinical flare likely provoked by missing medication following COVID infection. I recommend that she start on 20 mg of prednisone and taper by 5 mg every 2 days until she has discontinued it. She may need a low-dose for somewhat longer and we discussed we can assess this when she gets to a 5 mg tablet. We reviewed her recent laboratories. Assessment & Plan (10/13/2019 4:35 PM CDT): I discussed with the patient that she needs to hold her methotrexate until she is over this acute infection. She is now 5 days from the onset of symptoms and I have asked her to update me when she is at a week to 10 days. She has not had laboratories during this acute illness but will need monitoring laboratories after this has resolved. I have asked her to be certain and discuss with her primary care physician who is monitoring her COVID progression on a daily basis in regards to her productive cough and to follow her temperature is tomorrow without taking ibuprofen to see how high she is still spiking. She may have a secondary bacterial infection. However she has no respiratory compromise at this time . We discussed the nature of COVID and other patients with rheumatic disorders. Assessment & Plan (05/26/2019 7:06 PM INFORMATICA DEVELOPER): Her inflammatory arthritis looks much better controlled today and we will check monitoring laboratories on her methotrexate and she will be seen quarterly. Assessment & Plan (01/20/2019 10:44 AM CDT): I discussed with her that I feel she should at least be maintained on some Methotrexate although I do feel she should hold it this week given her recent surgery. She will resume at 15 mg in 1 week assuming ongoing excellent healing. I feel her disease activity is lower today because of the steroid injections that she received. She should have monitoring laboratories after 4 weeks of methotrexate and this is scheduled for her. She will follow up with our nurse practitioner in 3 months to assess activity on methotrexate. Assessment & Plan (03/15/2018 8:26 AM CDT): We had a lengthy discussion regarding the role of letrozole with her arthritis. She had severe pain from tamoxifen in her hips and does not wish to take that. She has significant hot flashes with exomestane and we discussed potential use of Catapres but she tried a number of other psychotropic agents to help with hot flashes and they were ineffective. 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 We discussed resuming Humira. I would like to reassess progression of disease at this time and we will check monitoring laboratories on her methotrexate and make a decision regarding the next course of therapy. 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 She has previously had excessive sedation from Flexeril. I recommend that she try baclofen and I have recommended online jennifer-chi to help with pain and spasm URI (upper respiratory infection) 06/24/2012 Breast cancer in situ 04/03/2012 High risk medications (not anticoagulants) long- term use 12/04/2011 Assessment & Plan (12/25/2022 8:52 AM CDT): Check monitoring labs Mixed anxiety depressive disorder 07/07/2011 Breast cancer 02/16/2011 Resolved Problems Problem Noted Date Diagnosed Date Resolved Date Frequent UTI 03/11/2018 07/22/2018 Vaginal atrophy 03/11/2018 07/22/2018 Dermatitis 01/29/2018 07/22/2018 Depression with anxiety 10/29/201710/12 Cancer ([facility]) 10/29/2017 10/29/2017 Inflammatory arthritis 08/20/201707/22 Encounter for postoperative care 03/26/2017 07/22/2018 Lung nodule 01/24/2017 07/22/2018 Systemic inflammatory respon se syndrome (SIRS) 01/24/2017 07/22/2018 Chronic tonsillitis 11/27/2016 07/23/19 19 Nasal obstruction 11/27/2016 07/22/2018 Facial pain 02/14/2016 07/22/2018 Nasal congestion 02/14/2016 07/22/2018 Surgical follow-up care 02/08/201607/12 Chronic sinusitis 01/21/2016 04/21/2019 Hot flash due to medication 10/19/2015 07/22/2018 Tonsillitis 06/08/2015 07/22/2018 Soft tissue mass 11/06/2014 07/22/2018 Persistent insomnia 10/19/2014 07/23/19 19 Exudative pharyngitis 12/19/20132018 Osteoarthritis of cervical spine 05/09/2013 07/22/2018 Chronic pain 05/09/2013 07/22/2018 Osteoarthritis of lumbar spine 05/09/2013 07/22/2018 Spasm 05/09/2013 07/22/2018 Snapping thumb syndrome 02/10/201307/12 Herpes zoster 01/23/2013 07/22/2018 Back pain 11/27/2012 07/22/2018 Device, implant, or graft complication 01/10/2012 07/22/2018 Lymphedema 08/21/2011 07/22/2018 Swallowing painful 08/21/2011 9 Paronychia of toe 08/21/2011 07/22/2018 Chest pain 07/07/2011 07/22/2018 Current smoker 04/14/2011 07/22/2018 Tendinitis 04/14/2011 07/22/2018 Grief 03/28/2010 07/22/2018 Urticaria 03/28/2010 07/22/2018 Encounters Date Type Department Care Team Description 06/16/2024 11:00 AM INFORMATICA DEVELOPER Office Visit [facility] [address] [place] [address] Aimee William DNP Malignant neoplasm of upper-outer quadrant of right breast in female, estrogen receptor negative (HCC) (Primary Dx); Malignant neoplasm of female breast, unspecified estrogen receptor status, unspecified laterality, unspecified site of breast (HCC) 06/16/2024 10:00 AM INFORMATICA DEVELOPER Lab [facility] [address] [place] [address] Malignant neoplasm of female breast, unspecified estrogen receptor status, unspecified laterality, unspecified site of breast (HCC) 05/20/2024 Orders Only [facility] [address] [place] [address] [facility] [address] [place] [address] Nedra Antonio MD Rotator cuff tear arthropathy of left shoulder (Primary Dx); Acute pain of left shoulder 05/20/2024 Telephone [facility] [address] [facility] [address] [place] [address] Nedra Antonio MD 05/04/2024 9:41 AM INFORMATICA DEVELOPER - 05/04/2024 11:59 PM INFORMATICA DEVELOPER Hospital Encounter [facility] [address] [place] [address] Acute pain of left shoulder; Rotator cuff tear arthropathy of left shoulder Discharge Disposition: Discharge to home or self care 04/21/2024 12:59 PM INFORMATICA DEVELOPER - 04/21/2024 11:59 PM INFORMATICA DEVELOPER Hospital Encounter [facility] [address] [place] [address] [facility] [address] [place] [address] Nedra Antonio MD Acute pain of left shoulder (Primary Dx); Rotator cuff tear arthropathy of left shoulder; Foraminal stenosis of cervical region Discharge Disposition: Discharge to home or self care 04/04/2024 Telephone [facility] [address] [place] [id number] Nedra Antonio MD from Last 3 Months Immunizations Name Administration Dates Next Due Influenza, Quadrivalent, Tracee l Culture-based MDCK, Preservative Free, Antibiotic Free, Intramuscular 02/16/2020 Influenza, Quadrivalent, Spl it, Preservative Free, Intramuscular 02/24/2022 Influenza, Trivalent, Preser vative Free, Intramuscular 03/06/2013,03/11/2012,03/20/2011 Surgical History Surgery Date Site/Laterality Comments MASTECTOMY Mastectomy VAGINAL HYSTERECTOMY Hysterectomy, vaginal HYSTERECTOMY TONSILLECTOMY BREAST SURGERY implants redone SPINAL FUSION 02/20/2022 FL FLUORO GUIDED INJECTION H IP LEFT 12/04/2023 Left Medical History Medical History Date Comments Sinusitis Rheumatoid arthritis (HCC) Breast cancer (HCC) Sleep apnea Depression Family History Medical History Relation Name Comments No Known Problems Brother 2 Rheum arthritis Brother 3 Blood Clot Father Heart disease Father Heart disease; /Family history of cardiac disorder - (Added by TW Conv) Lung cancer Maternal Grandfather Maligna nt Neoplasm Bronchus and Lung - (Added by TW Conv) Depression Mother No Known Problems Sister 1 No Known Problems Sister 2 No Known Problems Son Anesthesia problems Neg Hx Relation Name Status Comments Brother 1 Alive Brother 2 Alive Brother 3 Alive Daughter Alive Father Maternal Grandfather Mother Sister 1 Alive Sister 2 Alive Son Alive Social History Tobacco Use Types Packs/Day Years Used Date Smoking Tobacco: Former Cigarettes 1 2014 Smokeless Tobacco: Never Tobacco Cessation:Counseling Given: Not [...] on file Legal Sex Female 11:50 AM INFORMATICA DEVELOPER Gender Identity Female 03/13/2018 3:16 PM CDT Sexual Orientation Not on file 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 Not on file Not on file Not on file Obstetrics History Para Term AB IAB SAB Ectopic Multiple Livin g Live Births 2 2 2 2 2 Date Outcome GA Total Labor Labor/2nd/3rd Weight Sex Type Anes PTL Paulina A1 A5 Name Clin Term Vag-S pont Living Term Vag-S pont Living Last Filed Vital Signs Vital Sign Reading Time Taken Comments Blood Pressure 105/79 06/16/2024 10:36 AM INFORMATICA DEVELOPER Pulse 79 06/16/2024 10:36 AM INFORMATICA DEVELOPER Temperature 36.1 C (97 F) 06/16/2024 10:36 AM INFORMATICA DEVELOPER Respiratory Rate 18 06/16/2024 10:36 AM INFORMATICA DEVELOPER Oxygen Saturation 98% 06/16/2024 10:36 AM INFORMATICA DEVELOPER Inhaled Oxygen Concentration - - Weight 64.9 kg (143 lb) 06/16/2024 10:36 AM INFORMATICA DEVELOPER Height 154.5 cm (5' 0.83 ) 06/16/2024 10:[address] Body Mass Index 27.17 06/16/2024 10:36 AM INFORMATICA DEVELOPER Plan of Treatment Health Maintenance Due Date Last Done Comments Breast Cancer Screening-Mammogram 1962 Colon Cancer Screening-Colonoscopy 1962 Depression Screening 1962 Hepatitis C Screening 1962 Pneumococcal vaccine <65 (1 of 2 - PCV) 1968 Hepatitis B Screening 1980 Regular Well Visit/Exam 18-64 1980 Zoster Vaccine (1 of 2) 1981 Covid-19 Vaccine (3 - Pfizer risk series) 09/04/2020 08/07/2020, 07/13/2020 Influenza Vaccine (#1) 2024 , 03/13/2021, 02/16/2020, Additional history exists DTaP/Tdap/Td Vaccine (2 - Td or Tdap) 11/22/2030 11/22/2020 Goals Goal Patient Goal Type Associated Problems Recent Progress Patient-Stated? Author CCM Chronic Pain Care Plan Chronic Care Management Worsening( 1:16 PM INFORMATICA DEVELOPER) Yeny Barros, KUSH Note: Problem: Chronic Pain Goals: 1. Minimize further functional decline 2. Maximize quality of life 3. Control pain Strategies: - Activity/exercise program recommendation - Conservative stepwise pain medicine strategy with multi-disciplinary approach - Recommend healthy lifestyle strategies and compensatory methods as needed Medical Devices Implanted Type Area Bricklayer Supervisor Device Identifier Shelf Expiration Date Model / Serial / Lot Medtronic Inc Bmp Infuse Sm [id number] - Sn/A - [id number] Implanted:Qty : 1 on 02/21/2022 by Jamari Mendez MD at [facility] Other - see comments N/A: Spine Lumbar Med[employer]onic Inc 05/14/2024 [id number] / N/A / [id number] Description:Implant pause pe rformed [employer] Creo Od6.5 Mm L50 Mm Thread Polyaxial Spine Screw Bone Titanium 5146.1652 - [id number] Implanted:Qty : 4 on 02/21/2022 by Jamari Mendez MD at [facility] N/A: Spine Lumbar [employer] 5146.1652 / / [employer] Creo Thread Spinal Cap Locking Nonsterile 1119.0010 - [id number] Implanted:Qty : 4 on 02/21/2022 by Jamari Mendez MD at [facility] N/A: Spine Lumbar [employer] 1119.0010 / / [employer] Creo 5.5mm 45mm Curve Neo Spinal Titanium 1119.7045 - [id number] Implanted:Qty : 1 on 02/21/2022 by Jamari Mendez MD at [facility] N/A: Spine Lumbar [employer] 1119.7045 / / [employer] Creo 5.5mm 45mm Curve Neo Spinal Titanium 1119.7045 - [id number] Implanted:Qty : 1 on 02/21/2022 by Jamari Mendez MD at [facility] N/A: Spine Lumbar [employer] 1119.7045 / / [employer] Altera [id number] 8d Spacer Spinal 1124.1011 - [id number] Implanted:Qty : 1 on 02/21/2022 by Jamari Mendez MD at [facility] N/A: Spine Lumbar [employer] 1124.1011 / / Allosource Freeze Dried Crushed 1-4mm Graft 15ml Bone Cancellous [id number] - [id number] Implanted:Qty : 1 on 02/21/2022 by Jamari Mendez MD at [facility] N/A: Spine Lumbar [employer] 05/22/2026 [id number] / / [id number] Procedures Procedure Name Priority Date/Time Associated Diagnosis Comments EGFR Routine 06/16/2024 10:22 AM INFORMATICA DEVELOPER Malignant neoplasm of female breast, unspecified estrogen receptor status, unspecified laterality, unspecified site of breast (HCC) DIFFERENTIAL AUTO Routine 06/16/2024 10: 22 AM INFORMATICA DEVELOPER Malignant neoplasm of female breast, unspecified estrogen receptor status, unspecified laterality, unspecified site of breast (HCC) CBC WITH AUTO DIFFERENTIAL Routine 06/16/2024 10:22 AM INFORMATICA DEVELOPER Malignant neoplasm of female breast, unspecified estrogen receptor status, unspecified laterality, unspecified site of breast (HCC) COMPREHENSIVE METABOLIC PANEL Routine 06/16/2024 10:22 AM INFORMATICA DEVELOPER Malignant neoplasm of female breast, unspecified estrogen receptor status, unspecified laterality, unspecified site of breast (HCC) MRI SHOULDER LEFT WO CONTRAST Schedule Routine, Read Routine (OP Routine) 05/04/2024 10:33 AM INFORMATICA DEVELOPER Acute pain of left shoulder Rotator cuff tear arthropathy of left shoulder PAIN MGMT IMAGING SHOULDER, HIP, KNEE JOINT/BURSA INJ LEFT Schedule Routine, Read Routine (OP Routine) 04/21/2024 3:04 PM INFORMATICA DEVELOPER Acute pain of left shoulder Rotator cuff tear arthropathy of left shoulder from Last 3 Months Results * eGFR (06/16/2024 10:22 AM INFORMATICA DEVELOPER) eGFR 89 >=60 mL/min/1. 73 m2 Comment: Interpretive Data Reference Interval Normal >/= 90 mL/min/1.73m2 Mildly decreased* 60 - 89 mL/min/1.73m2 Mildly to moderately decreased 45 - 59 mL/min/1.73m2 Moderately to severely decreased 30 - 44 mL/min/1.73m2 Severely decreased 15 - 29 mL/min/1.73m2 Kidney Failure < 15 mL/min/1.73m2 *Relative to young adult level Estimated glomerular filtration rate is determined by the 2020 CKD-EPI equation recommended by the National Kidney Foundation (A Unifying Approach to GFR Estimation: Recommendations of the NKF-ASK Task Force on Reassessing the Inclusion of Race in Diagnosing Kidney Disease, JASN 2020). The CKD-EPI equation should not be used for patients with unstable renal function and has not been validated in children and those over 70. Current interpretive data was last reviewed 2021. Testing performed by: [facility], [address] [place] [address] Blood 06/16/2024 10:2 2 AM INFORMATICA DEVELOPER 06/16/2024 10:40 AM INFORMATICA DEVELOPER us Sally Sutton MD LAB BLOOD ORDERABLES Final Resul t [facility]IS MARIN [address] Department of Laboratories [place], [place] [id number] * Differential, auto (06/16/2024 10:22 AM INFORMATICA DEVELOPER) Neutrophil abs 3.1 1.5 - 6.5 K/cumm Comment:Testing performed by : [facility], [address] [place] [address] Imm gran abs 0.0 0.0 - 0.1 K/cumm CERNER [facility] Comment:Testing performed by : [facility], [address] [place] [address] Lymphocyte abs 2.3 0.8 - 3.3 K/cumm CERNER B[facility] Comment:Testing performed by : [facility], [address] [place] [address] Monocyte abs 0.7 0.2 - 0.8 K/cumm CERNER BJWCH Comment:Testing performed by : [facility], [address] [place] [address] Eosinophil abs 0.2 0.0 - 0.5 K/cumm CERNER BJWCH Comment:Testing performed by : [facility], [address] [place] [address] Basophil abs 0.0 0.0 - 0.1 K/cumm CERNER BJWCH Comment:Testing performed by : [facility], [address] [place] [address] Neutrophil pct 49.2 % CERNER BJW[facility] Comment: Interpretive Data Percent cell count reference ranges are not reported, since discordance with absolute values may lead to misinterpretation of CBC data. Current Interpretive Data was last revised on 2017. Testing performed by: [facility], [address] [place] [address] Imm gran pct 0.3 % [facility] Comment: Interpretive Data Percent cell count reference ranges are not reported, since discordance with absolute values may lead to misinterpretation of CBC data. Current Interpretive Data was last revised on 2017. Testing performed by: [facility], [place] [address], [address] [place] [address] Lymphocyte pct 36.6 % [facility] Comment: Interpretive Data Percent cell count reference ranges are not reported, since discordance with absolute values may lead to misinterpretation of CBC data. Current Interpretive Data was last revised on 2017. Testing performed by: [facility], [place] [address], [address] [place] [address] Monocyte pct 10.6 % [facility] Comment: Interpretive Data Percent cell count reference ranges are not reported, since discordance with absolute values may lead to misinterpretation of CBC data. Current Interpretive Data was last revised on 2017. Testing performed by: [facility], [place] [facility], [address] [place] [address] Eosinophil pct 2.7 % [facility] Comment: Interpretive Data Percent cell count reference ranges are not reported, since discordance with absolute values may lead to misinterpretation of CBC data. Current Interpretive Data was last revised on 2017. Testing performed by: [facility], [place] [facility], [address] [place] [address] Basophil pct 0.6 % [facility] Comment: Interpretive Data Percent cell count reference ranges are not reported, since discordance with absolute values may lead to misinterpretation of CBC data. Current Interpretive Data was last revised on 2017. Testing performed by: [facility], [place] [facility], [address] [place] [address] Blood 06/16/2024 10:2 2 AM INFORMATICA DEVELOPER 06/16/2024 10:23 AM INFORMATICA DEVELOPER us Sally Sutton MD LAB BLOOD ORDERABLES Final Resul t [facility] [address] Department [place] [address] * (ABNORMAL) CBC with auto differential (06/16/2024 10:22 AM INFORMATICA DEVELOPER) WBC 6.2 3.8 - 9.9 K/cumm Comment:Testing performed by : [place] [address], [address] [place] [address] Hgb 13.4 11.9 - 15.5 g/dL CHRIS MARIN Comment:Testing performed by : [place] [address], [address] [place] [address] Hct 40.8 35.6 - 45.5 % CHRIS MARIN Comment:Testing performed by : [place] [address], [address] [place] [address] Plt 256 150 - 400 K/cumm CHRIS MARIN Comment:Testing performed by : [place] [address], [address] [place] [address] MPV 8.5(L) 9.1 - 12.3 fL CHRIS MARIN Comment:Testing performed by : [place] [address], [address] [place] [address] RBC 4.29 3.90 - 5.20 M/cumm CHRIS MARIN Comment:Testing performed by : [place] [address], [address] [place] [address] MCV 95 81 - 96 fL CHRIS CLARKEAILYN Comment:Testing performed by : [place] [address], [address] [place] [address] MCH 31.2 27.1 - 33.3 pg CHRIS CASTILLOCH Comment:Testing performed by : [facility], [address] [place] [address] MCHC 32.8 32.3 - 35.7 g/dL CHRIS CASTILLOCH Comment:Testing performed by : [place] [address], [address] [place] [address] RDW CV 13.4 11.1 - 14.9 % CERGOPAL [facility] Comment:Testing performed by : [facility], [place] [address], [address] [place] [address] RDW SD 46.9 35.7 - 48.1 fL CERGOPAL [facility] Comment:Testing performed by : [facility], [place] [address], [address] [place] [address] Blood 06/16/2024 10:2 2 AM INFORMATICA DEVELOPER 06/16/2024 10:23 AM INFORMATICA DEVELOPER us Sally Sutton MD LAB BLOOD ORDERABLES Final Resul t CHRIS CASTILLO [address] Department [place] [address] * Comprehensive metabolic panel (06/16/2024 10:22 AM INFORMATICA DEVELOPER) Sodium 141 135 - 145 mmol/L Comment:Testing performed by : [facility], [address] [place] [address] Potassium, pl 4.3 3.3 - 4.9 mmol/L CERGOPAL [facility] Comment:Testing performed by : [facility], [address] [place] [address] Chloride 106 97 - 110 mmol/L CERGOPAL [facility] Comment:Testing performed by : [facility], [address] [place] [address] CO2 25 22 - 32 mmol/L CERGOPAL [facility] Comment:Testing performed by : [facility], [address] [place] [address] Anion gap 10 2 - 15 mmol/L CERGOPAL [facility] Comment:Testing performed by : [facility], [address], [place] [address] BUN 22 6 - 25 mg/dL CERNER [facility] Comment:Testing performed by : [facility], [address], [place] [address] Creatinine 0.76 0.60 - 1.10 mg/dL CERNER [facility] Comment:Testing performed by : [facility], [address], [place] [address] Glucose 89 70 - 199 mg/dL CERNER [facility] Comment: Interpretive Data Fasting glucose >/= 126 mg/dl is diagnostic for diabetes. Fasting is defined as no caloric intake for at least 8 hours. Fasting glucose between 100 mg/dl to 125 mg/dl is diagnostic of prediabetes. In a patient with classic symptoms of hyperglycemia or hyperglycemic crisis, a random glucose >/= 200 mg/dl is diagnostic for diabetes. In the absence of unequivocal hyperglycemia, results should be confirmed by repeat testing. The classification and Diagnosis of Diabetes Diabetes Care 2021; 46: S19-S40. Current interpretive data was last revised 2022. Testing performed by: [facility], [address], [place] [address] Calcium 9.4 8.5 - 10.3 mg/dL CERNER [facility] Comment:Testing performed by : [facility], [address], [place] [address] Bilirubin, total 0.6 0.1 - 1.2 mg/dL CERNER [facility] Comment:Testing performed by : [facility], [address], [place] [address] Protein, pl 7.0 6.5 - 8.5 g/dL CERNER [facility] Comment:Testing performed by : [facility], [address], [place] [address] Albumin 4.0 3.5 - 5.0 g/dL CERNER [facility] Comment:Testing performed by : [facility], [address], [place] [address] Alk phos 61 40 - 130 Units/L CERNER [facility] Comment:Testing performed by : [facility], [address], [place] [address] ALT 18 7 - 45 Units/L CERNER [facility] Comment:Testing performed by : [facility], [address], [place] [address] AST 19 10 - 45 Units/L CHRIS MARIN Comment:Testing performed by : [facility], [address] [place] [address] Blood 06/16/2024 10:2 2 AM INFORMATICA DEVELOPER 06/16/2024 10:40 AM INFORMATICA DEVELOPER us Sally Sutton MD LAB BLOOD ORDERABLES Final Resul t CHRIS MARIN [address]. Department [place] [address] * MRI Shoulder Left WO Contrast (05/04/2024 10:33 AM INFORMATICA DEVELOPER) Anatomical Region Laterality Modality Upper Extremities Left Magnetic Reson ance 05/04/2024 10:4 6 AM INFORMATICA DEVELOPER Impressions 05/04/2024 10:59 AM INFORMATICA DEVELOPER 1. Rotator cuff tendinopathy with focal full-thickness leading edge tear of the supraspinatus and diffuse bursal sided fraying. 2. Mild subscapularis, infraspinatus and intra-articular biceps tendinopathy without tear. 3. Moderate subacromial subdeltoid bursitis. Dictated by: Roni Mccoy M.D. The radiology attending physician has personally reviewed this study, and had reviewed and/or edited this written report and agrees with it. Electronically signed by: Ricardo Hawkins MD, PHD Narrative 05/04/2024 10:59 AM INFORMATICA DEVELOPER EXAMINATION: 1. MRI left shoulder without contrast HISTORY: Left shoulder pain, concerning for rotator cuff arthropathy and biceps tendinopathy status post injection on 04/21/2024 FINDINGS: No recent comparison radiographs are available. 04/21/2024 injection images reviewed.. Multiplanar multisequence noncontrast MR examination of the left shoulder was performed. 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 There is moderate volume fluid within the subacromial subdeltoid bursa. There is a focal full-thickness tear of the leading edge fibers of the supraspinatus with superimposed tendinopathy and diffuse bursal sided fraying. There is mild subscapularis and infraspinatus tendinopathy without tear.. There is intra-articular long head of biceps tendinopathy without tear The rotator cuff muscle bulk is normal. On this nonarthrographic evaluation, there is a degenerative appearance of the predominantly superior glenoid labrum. No glenohumeral joint effusion. No acute fracture or marrow replacing lesion is noted. Procedure Note Ricardo Hawkins MD PhD - 05/04/2024 EXAMINATION: 1. MRI left shoulder without contrast HISTORY: Left shoulder pain, concerning for rotator cuff arthropathy and biceps tendinopathy status post injection on 04/21/2024 FINDINGS: No recent comparison radiographs are available. 04/21/2024 injection images reviewed.. Multiplanar multisequence noncontrast MR examination of the left shoulder was performed. 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 There is moderate volume fluid within the subacromial subdeltoid bursa. There is a focal full-thickness tear of the leading edge fibers of the supraspinatus with superimposed tendinopathy and diffuse bursal sided fraying. There is mild subscapularis and infraspinatus tendinopathy without tear.. There is intra-articular long head of biceps tendinopathy without tear The rotator cuff muscle bulk is normal. On this nonarthrographic evaluation, there is a degenerative appearance of the predominantly superior glenoid labrum. No glenohumeral joint effusion. No acute fracture or marrow replacing lesion is noted. IMPRESSION: 1. Rotator cuff tendinopathy with focal full-thickness leading edge tear of the supraspinatus and diffuse bursal sided fraying. 2. Mild subscapularis, infraspinatus and intra-articular biceps tendinopathy without tear. 3. Moderate subacromial subdeltoid bursitis. Dictated by: Roni Mccoy M.D. The radiology attending physician has personally reviewed this study, and had reviewed and/or edited this written report and agrees with it. Electronically signed by: Ricardo Hawkins MD, PHD Domenico Grewal MD IMG MRI PROCEDURES Final R esult * Imaging Shoulder, Hip, Knee Joint/Bursa INJ Left () (04/21/2024 3:04 PM INFORMATICA DEVELOPER) Narrative [facility] - 04/21/2024 3:04 PM INFORMATICA DEVELOPER The images from this study are not interpreted by Radiology. Please refer to the physician's procedure / OR operative note. Domenico Grewal MD IMG PAIN MGMT PROCEDURES F inal Result [facility] from Last 3 Months Insurance Remote Assistant MS [facility] [place] For more information, please contact: [phone] * Full Code (Latest Code Status on File) Date Activated Date Inactivated Comments 02/21/2022 1:53 PM 02/24/2022 10:09 PM Care Teams Manager French Relationship Specialty Start Date End Date Fletcher Dockery MD [address] [place] [address] PCP - General Family Medicine 12/13/21 aSlly Sutton MD [address] [place] [address] Medical Oncologist/Health And Safety Advisor Medical Oncology 07/05/20
--- OUTSIDE RECORDS SUMMARY | 2024-06-27 05:22 | XMS_ITS | Referral Summary ---
Author Organization [facility] Address [address] [place] [address] Care Team Providers Care Access Control Specialist Name Role Phone Sally Sutton MD Unavailable Fletcher Dockery MD Primary Care Provider [phone] Encounters Date Type Department Care Team Description 06/16/2024 11:00 AM CORRECTIONAL LIEUTENANT Office Visit [facility] Oncology [address] [facility] [address] [place] [phone] Aimee William DNP Malignant neoplasm of upper-outer quadrant of right breast in female, estrogen receptor negative (HCC) (Primary Dx); Malignant neoplasm of female breast, unspecified estrogen receptor status, unspecified laterality, unspecified site of breast (HCC) 06/16/2024 10:00 AM CORRECTIONAL LIEUTENANT Lab [facility] at [address] [phone] Malignant neoplasm of female breast, unspecified estrogen receptor status, unspecified laterality, unspecified site of breast (HCC) 05/20/2024 Orders Only [facility] [address] [facility] Advanced [address] [address] Nedra Antonio MD Rotator cuff tear arthropathy of left shoulder (Primary Dx); Acute pain of left shoulder 05/20/2024 Telephone [facility] [address] [facility] [address] [place] [address] Nedra Antonio MD 05/04/2024 9:41 AM CORRECTIONAL LIEUTENANT - 05/04/2024 11:59 PM CORRECTIONAL LIEUTENANT Hospital Encounter [facility] ([facility]) [address] [place] [id number] Acute pain of left shoulder; Rotator cuff tear arthropathy of left shoulder Discharge Disposition: Discharge to home or self care 04/21/2024 12:59 PM CORRECTIONAL LIEUTENANT - 04/21/2024 11:59 PM CORRECTIONAL LIEUTENANT Hospital Encounter [facility] [address] [place] [address] for Advanced Medicine [address] [place] [address] Nedra Antonio MD Acute pain of left shoulder (Primary Dx); Rotator cuff tear arthropathy of left shoulder; Foraminal stenosis of cervical region Discharge Disposition: Discharge to home or self care 04/04/2024 Telephone [facility] [address] [place] [address] Advanced Medicine [address] [place] [address] Nedra Antonio MD from Last 3 Months Allergies Active Allergy [...] (01/18/2022): Added automatically from request for surgery [id number] Spinal stenosis of lumbar region with radiculopa thy 01/18/2022 Overview (01/18/2022): Added automatically from request for surgery [id number] Scoliosis of lumbar spine 12/19/2021 Chronic left-sided low back pain without sciatic a 11/07/2021 Lumbar radiculopathy - Left 11/07/2021 COVID-19 virus infection 08/16/2020 Acquired trigger finger of both ring fingers 09/2020 Carbuncle of nasal septum 12/29/2019 Assessment & Plan (12/29/2019 5:28 PM CDT): Will treat with doxycycline 100 mg b.i.d. Radial styloid tenosynovitis (de quervain) 05/26 Assessment & Plan (05/26/2019 7:06 PM CORRECTIONAL LIEUTENANT): I discussed with the patient that I [...] ng multiple sites with positive rheumatoid factor ([facility]) 10/29/2017 Assessment & Plan (12/25/2022 8:51 AM [...] disorders. 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 We discussed resuming Humira. I would like [...] 07/22/2018 Dermatitis 01/29/2018 07/22/2018 Depression with anxiety 10/29/2017 0612/2017 Cancer ([facility]) 10/29/2017 10/29/2017 Inflammatory arthritis 08/20/201707/22 Encounter for [...] 07/22/2018 Grief 03/28/2010 07/22/2018 Urticaria 03/28/2010 07/22/2018 Immunizations Name Administration Dates Next Due Influenza, Quadrivalent, Tracee l Culture-based MDCK, Preservative Free, Antibiotic Free, Intramuscular 02/16/2020 Influenza, Quadrivalent, Spl it, Preservative Free, Intramuscular 02/24/2022 Influenza, Trivalent, Preser vative Free, Intramuscular 03/06/2013,03/11/2012,03/20/2011 Social History Tobacco Use Types Packs/Day Years Used Date Smoking Tobacco: Former Cigarettes - 2014 Smokeless Tobacco: Never Tobacco Cessation:Counseling Given: [...] on file Legal Sex Female 11:50 AM CORRECTIONAL LIEUTENANT Gender Identity Female 03/13/2018 3:16 PM CDT Sexual Orientation Not on file 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 Not on file Not on file Not on file Last Filed Vital Signs Vital Sign Reading Time Taken Comments Blood Pressure 105/79 06/16/2024 10:36 AM CORRECTIONAL LIEUTENANT Pulse 79 06/16/2024 10:36 AM CORRECTIONAL LIEUTENANT Temperature 36.1 C (97 F) 06/16/2024 10:36 AM CORRECTIONAL LIEUTENANT Respiratory Rate 18 06/16/2024 10:36 AM CORRECTIONAL LIEUTENANT Oxygen Saturation 98% 06/16/2024 10:36 AM CORRECTIONAL LIEUTENANT Inhaled Oxygen Concentration - - Weight 64.9 kg (143 lb) 06/16/2024 10:36 AM CORRECTIONAL LIEUTENANT Height 154.5 cm (5' 0.83 ) 06/16/2024 10:[address] Body Mass Index 27.17 06/16/2024 10:36 AM CORRECTIONAL LIEUTENANT Plan of Treatment Not on file Goals Goal Patient Goal Type Associated Problems Recent Progress Patient-Stated? Author CCM Chronic Pain Care Plan Chronic Care Management Worsening( 1:16 PM CORRECTIONAL LIEUTENANT) Yeny Barros, RN Note: Problem: Chronic Pain Goals: 1. Minimize further functional decline 2. Maximize quality of life 3. Control pain Strategies: - Activity/exercise program recommendation - Conservative stepwise pain medicine strategy with multi-disciplinary approach - Recommend healthy lifestyle strategies and compensatory methods as needed Medical Devices Implanted Type Area Fire Support Specialist Device Identifier Shelf Expiration Date Model / Serial / Lot Medtronic Inc Bmp Infuse Sm [id number] - Sn/A - [id number] Implanted:Qty : 1 on 02/21/2022 by Jamari Mendez MD at [facility] Other - see comments N/A: Spine Lumbar Medtronic Inc 05/14/2024 [id number] / N/A / [id number] Description:Implant pause pe rformed [employer] Creo Od6.5 Mm L50 Mm Thread Polyaxial Spine Screw Bone Titanium 5146.1652 - [id number] Implanted:Qty : 4 on 02/21/2022 by Jamari Mendez MD at [facility] N/A: Spine Lumbar [employer] 5146.1652 / / [employer] Creo Thread Spinal Cap Locking Nonsterile 1119.0010 - [id number] Implanted:Qty : 4 on 02/21/2022 by Jamari Mendez MD at [facility] N/A: Spine Lumbar [employer] 1119.0010 / / [employer] Creo 5.5mm 45mm Curve Neo Spinal Titanium 1119.7045 - [id number] Implanted:Qty : 1 on 02/21/2022 by Jamari Mendez MD at [facility] N/A: Spine Lumbar [employer] 1119.7045 / / [employer] Creo 5.5mm 45mm Curve Neo Spinal Titanium 1119.7045 - [id number] Implanted:Qty : 1 on 02/21/2022 by Jamari Mendez MD at [facility] N/A: Spine Lumbar [employer] 1119.7045 / / [employer] Altera [id number] 8d Spacer Spinal 1124.1011 - [id number] Implanted:Qty : 1 on 02/21/2022 by Jamari Mendez MD at [facility] N/A: Spine Lumbar [employer] 1124.1011 / / Allosource Freeze Dried Crushed 1-4mm Graft 15ml Bone Cancellous [id number] - [id number] Implanted:Qty : 1 on 02/21/2022 by Jamari Mendez MD at [facility] N/A: Spine Lumbar Allosource 05/22/2026 [id number] / / [id number] Procedures Procedure Name Priority Date/Time Associated Diagnosis Comments EGFR Routine 06/16/2024 10:22 AM CORRECTIONAL LIEUTENANT Malignant neoplasm of female breast, unspecified estrogen receptor status, unspecified laterality, unspecified site of breast (HCC) DIFFERENTIAL AUTO Routine 06/16/2024 10: 22 AM CORRECTIONAL LIEUTENANT Malignant neoplasm of female breast, unspecified estrogen receptor status, unspecified laterality, unspecified site of breast (HCC) CBC WITH AUTO DIFFERENTIAL Routine 06/16/2024 10:22 AM CORRECTIONAL LIEUTENANT Malignant neoplasm of female breast, unspecified estrogen receptor status, unspecified laterality, unspecified site of breast (HCC) COMPREHENSIVE METABOLIC PANEL Routine 06/16/2024 10:22 AM CORRECTIONAL LIEUTENANT Malignant neoplasm of female breast, unspecified estrogen receptor status, unspecified laterality, unspecified site of breast (HCC) MRI SHOULDER LEFT WO CONTRAST Schedule Routine, Read Routine (OP Routine) 05/04/2024 10:33 AM CORRECTIONAL LIEUTENANT Acute pain of left shoulder Rotator cuff tear arthropathy of left shoulder PAIN MGMT IMAGING SHOULDER, HIP, KNEE JOINT/BURSA INJ LEFT Schedule Routine, Read Routine (OP Routine) 04/21/2024 3:04 PM CORRECTIONAL LIEUTENANT Acute pain of left shoulder Rotator cuff tear arthropathy of left shoulder from Last 3 Months Results * eGFR (06/16/2024 10:22 AM CORRECTIONAL LIEUTENANT) eGFR 89 >=60 mL/min/1. 73 m2 Comment: [...] was last reviewed 2021. Testing performed by: [facility], [address] [place] [address] Blood 06/16/2024 10:2 2 AM CORRECTIONAL LIEUTENANT 06/16/2024 10:40 AM CORRECTIONAL LIEUTENANT us Sally Sutton MD LAB BLOOD ORDERABLES Final Resul t [facility] [address]. [place] [address] * Differential, auto (06/16/2024 10:22 AM CORRECTIONAL LIEUTENANT) Neutrophil abs 3.1 1.5 - 6.5 K/cumm Comment:Testing performed by : [facility], [facility], [address] [place] [address] Imm gran abs 0.0 0.0 - 0.1 K/cumm CERNER [facility] Comment:Testing performed by : [facility] 2, [address] [place] [address] Lymphocyte abs 2.3 0.8 - 3.3 K/cumm CERGOPAL [facility] Comment:Testing performed by : [facility] 2, [address] [place] [address] Monocyte abs 0.7 0.2 - 0.8 K/cumm CERGOPAL [facility] Comment:Testing performed by : [facility] 2, [address] [place] [address] Eosinophil abs 0.2 0.0 - 0.5 K/cumm CERGOPAL [facility] Comment:Testing performed by : [facility] 2, [address] [place] [address] Basophil abs 0.0 0.0 - 0.1 K/cumm CERNER [facility] Comment:Testing performed by : [facility] 2, [address] [place] [address] Neutrophil pct 49.2 % CERNER [facility] Comment: Interpretive Data Percent cell count reference ranges are not reported, since discordance with absolute values may lead to misinterpretation of CBC data. Current Interpretive Data was last revised on 2017. Testing performed by: [facility], [facility], [address] [place] [address] Imm gran pct 0.3 % C[facility]ER [facility] Comment: Interpretive Data Percent cell count reference ranges are not reported, since discordance with absolute values may lead to misinterpretation of CBC data. Current Interpretive Data was last revised on 2017. Testing performed by: [facility], [facility], [address] [place] [address] Lymphocyte pct 36.6 % CERNER [facility] Comment: Interpretive Data Percent cell count reference ranges are not reported, since discordance with absolute values may lead to misinterpretation of CBC data. Current Interpretive Data was last revised on 2017. Testing performed by: [facility], [facility], [address] [place] [address] Monocyte pct 10.6 % C[facility]ER [facility] Comment: Interpretive Data Percent cell count reference ranges are not reported, since discordance with absolute values may lead to misinterpretation of CBC data. Current Interpretive Data was last revised on 2017. Testing performed by: [facility], [facility], [address] [place] [address] Eosinophil pct 2.7 % C[facility]ER [facility] Comment: Interpretive Data Percent cell count reference ranges are not reported, since discordance with absolute values may lead to misinterpretation of CBC data. Current Interpretive Data was last revised on 2017. Testing performed by: [facility], [facility], [address] [place] [address] Basophil pct 0.6 % [facility] Comment: Interpretive Data Percent cell count reference ranges are not reported, since discordance with absolute values may lead to misinterpretation of CBC data. Current Interpretive Data was last revised on 2017. Testing performed by: [facility], [facility], [address] [place] [address] Blood 06/16/2024 10:2 2 AM CORRECTIONAL LIEUTENANT 06/16/2024 10:23 AM CORRECTIONAL LIEUTENANT us Sally Sutton MD LAB BLOOD ORDERABLES Final Resul t [facility] [address] [facility] [place] [address] * (ABNORMAL) CBC with auto differential (06/16/2024 10:22 AM CORRECTIONAL LIEUTENANT) WBC 6.2 3.8 - 9.9 K/cumm Comment:Testing performed by : [facility] 2, [address] [place] [address] Hgb 13.4 11.9 - 15.5 g/dL [facility] Comment:Testing performed by : [facility] 2, [address] [place] [address] Hct 40.8 35.6 - 45.5 % CHRIS CLARKEW Comment:Testing performed by : [facility], [facility], [address] [place] [address] Plt 256 150 - 400 K/cumm [facility] Comment:Testing performed by : [facility] 2, [address] [place] [address] MPV 8.5(L) 9.1 - 12.3 fL CHRIS CLARKEAILYN Comment:Testing performed by : [facility] 2, [address] [place] [address] RBC 4.29 3.90 - 5.20 M/cumm CHRIS CLARKEWCH Comment:Testing performed by : [facility] 2, [address] [place] [address] MCV 95 81 - 96 fL CHRIS CLARKEWCH Comment:Testing performed by : [facility] 2, [address] [place] [address] MCH 31.2 27.1 - 33.3 pg CERNER [facility] Comment:Testing performed by : [facility], [facility], [address] [place] [address] MCHC 32.8 32.3 - 35.7 g/dL CHRIS MARIN Comment:Testing performed by : [facility], [facility], [address] [place] [address] RDW CV 13.4 11.1 - 14.9 % CHRIS MARIN Comment:Testing performed by : [facility], [facility], [address] [place] [address] RDW SD 46.9 35.7 - 48.1 fL CHRIS MARIN Comment:Testing performed by : [facility], [facility] , [address] [place] [address] Blood 06/16/2024 10:2 2 AM CORRECTIONAL LIEUTENANT 06/16/2024 10:23 AM CORRECTIONAL LIEUTENANT us Sally Sutton MD LAB BLOOD ORDERABLES Final Resul t [facility] [address]. [place] [address] * Comprehensive metabolic panel (06/16/2024 10:22 AM CORRECTIONAL LIEUTENANT) Sodium 141 135 - 145 mmol/L Comment:Testing performed by : [facility], [address] [place] [address] Potassium, pl 4.3 3.3 - 4.9 mmol/L CHRIS MARIN Comment:Testing performed by : [facility], [address] [place] [address] Chloride 106 97 - 110 mmol/L CHRIS MARIN Comment:Testing performed by : [facility], [address] [place] [address] CO2 25 22 - 32 mmol/L CHRIS MARIN Comment:Testing performed by : [facility], [address] [place] [address] Anion gap 10 2 - 15 mmol/L CERNER [facility] Comment:Testing performed by : [facility], [address], [place] [address] BUN 22 6 - 25 mg/dL CERNER [facility] Comment:Testing performed by : [facility], [address], [place] [address] Creatinine 0.76 0.60 - 1.10 mg/dL CERNER [facility] Comment:Testing performed by : [facility], [address], [place] [address] Glucose 89 70 - 199 mg/dL CERNER [...] classification and Diagnosis of Diabetes Diabetes Care 202; 46: S19-S40. Current interpretive data was last revised 2022. Testing performed by: [facility], [address], [place] [address] Calcium 9.4 8.5 - 10.3 mg/dL C[facility]ER [facility] Comment:Testing performed by : [facility], [address], [place] [address] Bilirubin, total 0.6 0.1 - 1.2 mg/dL CERNER [facility] Comment:Testing performed by : [facility], [address], [place] [address] Protein, pl 7.0 6.5 - 8.5 g/dL CERNER [facility] Comment:Testing performed by : [facility], [address], [place] [address] Albumin 4.0 3.5 - 5.0 g/dL CERNER [facility] Comment:Testing performed by : [facility], [address], [place] [address] Alk phos 61 40 - 130 Units/L CERNER [facility] Comment:Testing performed by : [facility], [address], [place] [address] ALT 18 7 - 45 Units/L CHRIS MARIN Comment:Testing performed by : [facility], [address], [place] [address] AST 19 10 - 45 Units/L CHRIS MARIN Comment:Testing performed by : [facility], [address], [place], [place] [address] Blood 06/16/2024 10:2 2 AM CORRECTIONAL LIEUTENANT 06/16/2024 10:40 AM CORRECTIONAL LIEUTENANT us Sally Sutton MD LAB BLOOD ORDERABLES Final Resul t [facility] [address]. [place] [address] * MRI Shoulder Left WO Contrast (05/04/2024 10:33 AM CORRECTIONAL LIEUTENANT) Anatomical Region Laterality Modality Upper Extremities Left Magnetic Reson ance 05/04/2024 10:4 6 AM CORRECTIONAL LIEUTENANT Impressions 05/04/2024 10:59 AM CORRECTIONAL LIEUTENANT 1. Rotator cuff tendinopathy with focal full-thickness [...] Hawkins MD, PHD Narrative 05/04/2024 10:59 AM CORRECTIONAL LIEUTENANT EXAMINATION: 1. MRI left shoulder without contrast [...] Electronically signed by: Ricardo Hawkins MD, PHD us Domenico Grewal MD IMG MRI PROCEDURES Final R esult * Imaging Shoulder, Hip, Knee Joint/Bursa INJ Left () (04/21/2024 3:04 PM CORRECTIONAL LIEUTENANT) Narrative [facility] - 04/21/2024 3:04 PM CORRECTIONAL LIEUTENANT The images from this study are not interpreted by Radiology. Please refer to the physician's procedure / OR operative note. Domenico Grewal MD IMG PAIN MGMT PROCEDURES F inal Result [facility] from Last 3 Months Insurance [facility] [place] Direct[place] For more information, please contact: [phone] * Full Code (Latest Code Status on File) Date Activated Date Inactivated Comments 02/21/2022 1:53 PM 02/24/2022 10:09 PM Care Teams Access Control Specialist Relationship Specialty Start Date End Date Fletcher Dockery MD [address] [place] [address] PCP - General Family Medicine 12/13/21 Sally Sutton MD [address] [place] [address] Medical Oncologist/Casing Sewer Medical Oncology 07/05/20
--- OUTSIDE RECORDS SUMMARY | 2024-06-27 05:22 | XMS_ITS ---
Author Organization [facility] Address [address] [place] [address] Care Team Providers Care Grocery Store Manager Name Role Phone Sally Sutton MD Unavailable Fletcher Dockery MD Primary Care Provider [phone] Active Problems Problem Noted Date Diagnosed Date [...] (01/18/2022): Added automatically from request for surgery [id number] Spinal stenosis of lumbar region with radiculopa thy 01/18/2022 Overview (01/18/2022): Added automatically from request for surgery [id number] Scoliosis of lumbar spine 12/19/2021 Chronic left-sided low back pain without sciatic a 11/07/2021 Lumbar radiculopathy - Left 11/07/2021 COVID-19 virus infection 08/16/2020 Acquired trigger finger of both ring fingers 09/2020 Carbuncle of nasal septum 12/29/2019 Assessment & Plan (12/29/2019 5:28 PM CDT): Will treat with doxycycline 100 mg b.i.d. Radial styloid tenosynovitis (de quervain) 05/26 Assessment & Plan (05/26/2019 7:06 PM SIDE BOSS): I discussed with the patient that I [...] ng multiple sites with positive rheumatoid factor ([facility]) 10/29/2017 Assessment & Plan (12/25/2022 8:51 AM [...] disorders. 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 We discussed resuming Humira. I would like [...] anxiety depressive disorder 07/07/2011 Breast cancer 02/16/2011 Current Oncology Plans No current plan information found. Past Plans No past plan information found. Radiation Treatments * No radiation treatments are documented for this patient in [facility]. Treatments may have been administered in another system. Lifetime Dose Tracking * Chemical Lifetime Dose Automatic Entry Manual Entr y Fluoro Time 0.6 minutes 0.6 minutes 0 minutes Air kerma at the reference point (Ka,r) 4.667 mGy 4 .667 mGy 0 mGy DLP 1,882 mGycm 1,882 mGycm 0 mGycm Resolved Problems Problem Noted Date Diagnosed Date Resolved Date Frequent UTI 03/11/2018 07/22/2018 Vaginal atrophy 03/11/2018 07/22/2018 Dermatitis 01/29/2018 07/22/2018 Depression with anxiety 10/29/201710/12 Cancer ([facility]) 10/29/2017 10/29/2017 Inflammatory arthritis 08/20/201707/22 Encounter for [...]
--- NOTE | 2024-06-27 06:38 | PC.NURSE ---
Patient stated that she was given a prescription for Oxycodone 5 mg after her surgery. She took one before bed as directed by their RN at [facility]. She woke up at 0230 with pain, so she took an additional two Oxycodone without relief. She took a 5 mg Vicodin and two Aspirin without relief. Patient states she came to the ER for help managing her pain. Patient anxiously pacing in the room with her left arm in sling. She denies any injuries to the arm. Patient states she had breast cancer with lymph node removal on the left 14 years ago. She states it is okay to start an IV in her left hand.
--- OUTSIDE RECORDS SUMMARY | 2024-06-27 07:28 | XMS_ITS | Referral Summary ---
Author Organization [facility] Address [address] [place] [place] [address] Care Team Providers Care Grease Refiner Operator Name Role Phone Fletcher Dockery MD Primary Care Provider +1- [phone] Source Comments [facility],non-owned Affiliates and Associated Physician Practices is amultiple site organization consisting of ambulatory clinics and hospital sitesin [place], [place], [place] and [place]. This disclosure is being madepursuant to the Care Everywhere program and may not contain all information available regarding this patient. Last updated 18.[facility] Encounters Date Type Department Care Team Description 06/26/[address], [address] [place] [phone] Estefanía Espinoza MD MEDICATION REFILL 06/26/2024 Telephone [facility] [address] [place] [address], [facility] [address] [place] [address] Estefanía Espinoza MD Med Question 06/26/2024 Travel 06/26/2024 8:46 AM BAKERY DECORATOR Anesthesia Event [facility] - General Surgery [address] [place] [address], [address] [place] [address] Alessia Mayfield, Elvia Capellan, ELISEO-PRINTED FORMS PROOFREADER 06/26/2024 9:00 AM BAKERY DECORATOR - 06/26/2024 11:10 AM BAKERY DECORATOR Surgery [facility] General Surgery [id number] [place] [address], [address] [place] [address] Estefanía Espinoza MD LEFT SHOULDER ARTHROSCOPY, DECOMPRESSION 06/26/2024 7:27 AM BAKERY DECORATOR - 06/26/2024 11:59 PM BAKERY DECORATOR Hospital Encounter [facility] - General Surgery [address] [facility], [address] [place] [address] Estefanía Espinoza MD Surgery General Discharge Disposition: Home or Self Care 2024 3:45 PM BAKERY DECORATOR Ancillary Procedure [facility] - Radiology [address] [place] [phone] Estefanía Espinoza MD Chronic right shoulder pain 2024 3:20 PM BAKERY DECORATOR Office Visit [facility] [address] [place] [address], [address] [place] [phone] Estefanía Espinoza MD Chronic left shoulder pain (Primary Dx); Nontraumatic complete tear of left rotator cuff; Chronic right shoulder pain; Tendinitis of right rotator cuff; Rheumatoid arthritis involving multiple sites, unspecified whether rheumatoid factor present (HCC) 06/11/2024 Travel 06/11/2024 8:34 AM BAKERY DECORATOR - 06/11/2024 11:59 PM BAKERY DECORATOR Hospital Encounter [facility] [address] [facility] [place] [address] Estefanía Espinoza MD Discharge Disposition: Home or Self Care 06/05/2024 Travel 06/03/2024 Telephone [facility] [address] [place] [address], [address] [place] [phone] Estefanía Espinoza MD Patient Requested Call (Patient called in to confirm that 06/26 will be a good date for sx for her . She will like a call back to confirm that you all got her reply /) 06/03/2024 Telephone [facility] [address] [place] [address], [address] [place] [phone] Estefanía Espnioza MD Question 06/03/2024 10:45 AM BAKERY DECORATOR Ancillary Procedure [facility] Orthopedics - Radiology [address] [place] [address] Meagan Quiñones PA-C Chronic left shoulder pain 06/03/2024 10:30 AM BAKERY DECORATOR Office Visit [facility] [address] [place] [address] [phone] Meagan Quiñones PA-C Nontraumatic complete [...] 03/05/2024 5 Discontinue d(Clinical Decision) HYDROcodone-acet aminophen ([place]) 5-325 MG tablet Take 1 (one) tablet [...] (06/03/2024): Added automatically from request for surgery [id number] Spinal stenosis of lumbar region with radiculopa thy 01/18/2022 Overview (06/03/2024): Added automatically from request for surgery [id number] Acquired trigger finger of both ring fingers [...] Comments Blood Pressure 146/84 06/26/2024 11:51 AM BAKERY DECORATOR Pulse 78 06/26/2024 12:01 PM BAKERY DECORATOR Temperature 36 C (96.8 F) 06/26/2024 10:58 AM BAKERY DECORATOR Respiratory Rate 14 06/26/2024 12:01 PM BAKERY DECORATOR Oxygen Saturation 94% 06/26/2024 12:01 PM BAKERY DECORATOR Inhaled Oxygen Concentration - - Weight 65.6 kg (144 lb 9.6 oz) 06/26/2024 7:35 A M BAKERY DECORATOR Height 154.9 cm (5' 1 ) 06/11/2024 8:55 AM BAKERY DECORATOR Body Mass Index 27.32 06/11/2024 8:55 AM BAKERY DECORATOR Plan of Treatment Not on file Medical Devices Implanted Type Area Engineer Soils Device Identifier Shelf Expiration Date Model / Serial / Lot Sys Impl Kntls Fibertape Speedbridge Implanted:Qty: 1 on 06/26/2024 by Estefanía Espinoza MD at [facility] Left: Shoulder [employer] 03/13/2028 AR-2600FSB -2 / / [id number] [place] Sut Fibertak Kntls Slf Pnch 2.6mm Implanted:Qty: 1 on 06/26/2024 by Estefanía Espinoza MD at [facility] Left: Shoulder [employer] 03/13/2029 AR-[id number] / / [id number] Procedures Procedure Name Priority Date/Time Associated Diagnosis Comments PERIPHERAL BLOCK Routine 06/26/2024 10:5 0 AM BAKERY DECORATOR PERIPHERAL BLOCK Routine 06/26/2024 10:4 9 AM BAKERY DECORATOR ENDOTRACHEAL TUBE NOTE Routine 06/26/2024 8:59 AM BAKERY DECORATOR XR SHOULDER RIGHT 2VW OR MORE Routine 2024 3:46 PM BAKERY DECORATOR Chronic right shoulder pain XR SHOULDER LEFT 2VW OR MORE Routine 06/03/2024 10:57 AM BAKERY DECORATOR Chronic left shoulder pain from Last 3 Months Results * Peripheral Nerve Block (06/26/2024 10:50 AM BAKERY DECORATOR) Narrative Alessia Mayfield DO - 06/26/2024 10:50 AM BAKERY DECORATOR Alessia Mayfield DO 06/26/2024 10:51 AM Peripheral [...] * Peripheral Nerve Block (06/26/2024 10:49 AM BAKERY DECORATOR) Narrative Alessia Mayfield DO - 06/26/2024 10:49 AM BAKERY DECORATOR Alessia Mayfield DO 06/26/2024 10:50 AM Peripheral [...] * ETT LINE PERFORMABLE (06/26/2024 8:59 AM BAKERY DECORATOR) Narrative Elvia Salinas APRN-CRNA - 06/26/2024 8:59 AM BAKERY DECORATOR Elvia Salinas APRN-CRNA 06/26/2024 9:03 AM Endotracheal Tube Placement: Patient Location: OR. Intubation Event Date/Time: 06/26/2024 8:53 AM Procedure: intubation (74345) Procedure Section: Sedation: under general anesthesia. Indications [...] AM. Staff Section Anesthesia Provider: Elvia Salinas APRN-PRINTED FORMS PROOFREADER, Performed the procedure Alessia Mayfield DO GENERAL ANESTHESIA O RDERABLES * XR Shoulder Right 2Vw or More (2024 3:46 PM BAKERY DECORATOR) Narrative [facility] [address] - 2024 3:47 PM BAKERY DECORATOR Please see progress note in [employer] for results. Estefanía Espinoza MD DIAGNOSTIC IMAGING ORDERABLES Performing Organization Address [facility]/ZIP Co de Phone Number [facility] [address] * XR Shoulder Left 2Vw or More (06/03/2024 10:57 AM BAKERY DECORATOR) Narrative [facility] [address] - 06/03/2024 10:57 AM BAKERY DECORATOR Please see progress note in Epic for results. Meagan Quiñones PA-C DIAGNOSTIC IMAGING O RDERABLES Performing Organization Address [facility]/State/ZIP Co de Phone Number [facility] [address] from Last 3 Months Care Teams Grease Refiner Operator Relationship Specialty Start Date End Date Fletcher Dockery MD [address] [place] [phone] PCP - General Family Medicine 06/03/24
--- OUTSIDE RECORDS SUMMARY | 2024-06-27 07:28 | XMS_ITS | Patient Health Summary ---
Author Organization [facility] Address [address] [place] [address] Care Team Providers Care Arboriculture Teacher Name Role Phone Fletcher Dockery MD Primary Care Provider +1- [phone] [facility],non-owned Affiliates and Associated Physician Practices is amultiple site organization consisting of ambulatory clinics and hospital sitesin [place], [place] and [place]. This disclosure is being madepursuant to the Care Everywhere program and may not contain all information available regarding this patient. Last updated 18.[facility] Allergies * Codeine(Itching,Other) -Low Criticality * Fentanyl(Headache,Nausea [...] tablet by mouth once daily * HYDROcodone-acetaminophen ([place]) 5-325 MG tablet(Discontinued) Take 1 (one) tablet [...] Comments Blood Pressure 146/84 06/26/2024 11:51 AM MOTOR VEHICLE CLERK Pulse 78 06/26/2024 12:01 PM MOTOR VEHICLE CLERK Temperature 36 C (96.8 F) 06/26/2024 10:58 AM MOTOR VEHICLE CLERK Respiratory Rate 14 06/26/2024 12:01 PM MOTOR VEHICLE CLERK Oxygen Saturation 94% 06/26/2024 12:01 PM MOTOR VEHICLE CLERK Inhaled Oxygen Concentration - - Weight 65.6 kg (144 lb 9.6 oz) 06/26/2024 7:35 A M MOTOR VEHICLE CLERK Height 154.9 cm (5' 1 ) 06/11/2024 8:55 AM MOTOR VEHICLE CLERK Body Mass Index 27.32 06/11/2024 8:55 AM MOTOR VEHICLE CLERK Medical Devices Implanted Type Area Loom Fixer Supervisor Device Identifier Shelf Expiration Date Model / Serial / Lot Sys Impl Kntls Fibertape Speedbridge Implanted:Qty: 1 on 06/26/2024 by Estefanía Espinoza MD at [facility] Left: Shoulder [employer] 03/13/2028 AR-2600FSB -2 / / [id number] [place] Sut Fibertak Kntls Slf Pnch 2.6mm Implanted:Qty: 1 on 06/26/2024 by Estefanía Espinoza MD at [facility] Left: Shoulder [employer] 03/13/2029 AR-[id number] / / [id number] Procedures * PERIPHERAL BLOCK(Performed 06/26/2024) * PERIPHERAL BLOCK(Performed 06/26/2024) * ENDOTRACHEAL TUBE NOTE(Performed 06/26/2024) * XR SHOULDER RIGHT 2VW OR MORE(Performed 2024) Performed for Chronic right shoulder pain * XR SHOULDER LEFT 2VW OR MORE(Performed 06/03/2024) Performed for Chronic left shoulder pain Results * Peripheral Nerve Block (06/26/2024 10:50 AM [facility]) Narrative Alessia Mayfield DO - 06/26/2024 10:50 [...] * Peripheral Nerve Block (06/26/2024 10:49 AM MOTOR VEHICLE CLERK) Narrative Alessia Mayfield DO - 06/26/2024 10:49 AM MOTOR VEHICLE CLERK Alessia Mayfield DO 06/26/2024 10:50 AM Peripheral [...] * ETT LINE PERFORMABLE (06/26/2024 8:59 AM MOTOR VEHICLE CLERK) Narrative Elvia Salinas APRN-CRNA - 06/26/2024 8:59 AM MOTOR VEHICLE CLERK Elvia Salinas APRN-CRNA 06/26/2024 9:03 AM Endotracheal Tube Placement: Patient Location: OR. Intubation Event Date/Time: 06/26/2024 8:53 AM Procedure: intubation ([id number]) Procedure Section: Sedation: under general anesthesia. Indications [...] Right 2Vw or More (2024 3:46 PM MOTOR VEHICLE CLERK) Narrative [facility] [address] - 2024 3:47 PM MOTOR VEHICLE CLERK Please see progress note in Epic for results. Estefanía Espinoza MD DIAGNOSTIC IMAGING ORDERABLES Performing Organization Address City/[facility] Co de Phone Number [facility] [address] * XR Shoulder Left 2Vw or More (06/03/2024 10:57 AM MOTOR VEHICLE CLERK) Narrative [facility] [address] - 06/03/2024 10:57 AM MOTOR VEHICLE CLERK Please see progress note in Epic for results. Meagan Quiñones PA-C DIAGNOSTIC IMAGING O RDERABLES Performing Organization Address City/[facility] Co de Phone Number [facility] [address] Care Teams Arboriculture Teacher Relationship Specialty Start Date End Date Fletcher Dockery MD [address] [place] [phone] PCP - General Family Medicine 06/03/24
--- OUTSIDE RECORDS SUMMARY | 2024-06-27 07:29 | XMS_ITS | Encounter Summary ---
Author Organization [facility] Address [address] [place] [address] Care Team Providers Care Almond Cutting Machine Tender Name Role Phone Fletcher Dockery MD Primary Care Provider +1- [phone] Reason for Visit * Reason Onset Date Comments Med Question 06/26/2024 Encounter Details Date Type Department Care Team (Late st Contact Info) Description 06/26/2024 Telephone [facility] Orthopedics [address] [place] [phone] [place] [address] [address] Med Question Social History Tobacco [...] * Telephone Encounter - Bruna Flores, Licensed Bundling Machine Operator - 06/26/2024 1:43 PM CST Spoke with patient's daughter and let her know that we are sending over new prescription and to keep an eye out from pharmacy on when it will be ready. NO ASSISTANT MANAGER * Telephone Encounter - Emma Ibrahim - 06/26/2024 1:30 PM CST Who is calling? Daughter Jarrod If other than self is caller listed on the HIPAA? yes What is the reason for call? Called to state that medication Oxycodone 5 MG is not available at patient's pharmacy in [facility]. Caller states that medication is available at [place] [address] and provided phone number [phone]. Did not have a fax number to provide Expected Response from the Clinic? ( ex. Call back, etc..) please submit prescription Did you notify caller it would take 24-48 hours for the office to get back to them? YES NO ASSISTANT MANAGER documented in this encounter Plan of Treatment Not on file documented as of this encounter Visit Diagnoses Not on filedocumented in this encounter Care Teams Almond Cutting Machine Tender Relationship Specialty Start Date End Date Fletcher Dockery MD [address] [place] [phone] PCP - General Family Medicine 06/03/24 documented as of this encounter
--- OUTSIDE RECORDS SUMMARY | 2024-06-27 07:29 | XMS_ITS | Encounter Summary ---
Author Organization [facility] Address [address] [facility] [place] [address] Care Team Providers Care Leasing Manager Name Role Phone Fletcher Dockery MD Primary Care Provider +1- [phone] Reason for Visit * Auth/Cert (Routine) Specialty Diagnoses / Procedures Referred By Christian t Referred To Contact Diagnoses Tear of left rotator cuff, unspecified tear extent, unspecified whether traumatic Tear of left rotator cuff, unspecified tear extent, unspecified whether traumatic [M75.102] Procedures DC SHOULDER ARTHROSCOPY DC SCOPE SHLDR SURG;W/ROTOR CUFF DC ARTHROSCOPY BICEPS TENODESIS DC SHOULDER ARTHROSCOPY ARTHROSCOPY SHOULDER ARTHROSCOPY SHOULDER ROTATOR CUFF REPAIR (RCR) ARTHROSCOPY SHOULDER BICEP TENODESIS ARTHROSCOPY SHOULDER DISTAL CLAVICULECTOMY (LEYDA) Referral ID Status Reason Start Date Expiration Date Visits Re quested Visits Authorized [id number] 1 1 Encounter Details Date Type Department Care Team (Late st Contact Info) Description 06/26/2024 8:46 AM AUTOMATION SOFTWARE ENGINEER Anesthesia Event [facility] - General Surgery [address] [place] [address], [address] [place] [address] Alessia Mayfield, DO [address] [place] [address] Elvia Salinas APRN-SPECIMEN PREPARATION ASSISTANT [address] [place] [address] Anesthesia Record Procedure Summary Procedure Name Responsible Anesthesiologist Anesthesia Start Time Anesthesia Stop Time LEFT SHOULDER ARTHROSCOPY, DECOMPRESSION (Left: Shoulder) Alsesia Mayfield DO 06/26/24 0846 06/26/24 1058 Events [...] Details Placement Removal Peripheral IV Date: 06/26/24; Time : 0800; Orientation: Posterior, Right; Location: Hand; Gauge: 20 G 06/26/24 0800 by Shelia Bobo RN 06/26/24 1201 by Anitra Nicolas RN ETT Date: 06/26/24; Time : 0853; Placed By: BO Conde; Vent: easy [...] APRN-CRNA 06/26/24 1053 by Elvia Salinas APRN-CRNA Procedural Site (Incision) 06/26/24; 0915; Left; Shoulder; Arthroscopic; 06/27/24; 0637 06/26/24 0915 by John Bradley RN 06/27/24 0637 by [employer], Auto Release documented in this encounter Social History Tobacco [...] of this encounter Progress Notes * Alessia Mayfield, - 06/26/2024 7:56 AM CST Images from [...] Plan was discussed with the anesthesiologist and SPECIMEN PREPARATION ASSISTANT. Overall additional findings/comments: Discussed risks of block [...] involving multiple sites with positive rheumatoid factor ([facility]) Problem List: Patient Active Problem List Diagnosis [...] Prioritized Added automatically from request for surgery [id number] Spinal stenosis of lumbar region with radiculopathy 01/18/2022 Priority: Not Prioritized Added automatically from request for surgery [id number] Acquired trigger finger of both ring fingers 08/16/2020 Priority: Not Prioritized COVID-19 virus infection 08/16/2020 Priority: Not Prioritized Carbuncle of nasal septum 12/29/2019 Priority: Not Prioritized Radial styloid tenosynovitis (de quervain) 05/26/2019 Priority: Not Prioritized Pelvic floor dysfunction in female 03/11/2018 Priority: Not Prioritized Anxiety 10/29/2017 Priority: Not Prioritized Rheumatoid arthritis involving multiple sites with positive rheumatoid factor ([facility]) 10/29/2017 Priority: Not Prioritized Obstructive sleep apnea [...] SI Joint Mastectomy Bilateral with implants Tonsillectomy MARZIPAN MAKER Status: No LMP recorded. unknown OB History No obstetric history on file. Covid Vaccine: Lab Results: MATION SOFTWARE ENGINEER documented in this encounter Procedure Notes * [...] Patient mildly sedated and tolerated well. . MATION SOFTWARE ENGINEER * Alessia Mayfield DO - 06/26/2024 10:49 [...] Provider: Alessia Mayfield DO, Performed the procedure MATION SOFTWARE ENGINEER * Elvia Salinas APRN-SPECIMEN PREPARATION ASSISTANT - 06/26/2024 8:59 AM CSTAssociated Order(s): ETT Placement Endotracheal Tube Placement: Patient Location: OR. Intubation Event Date/Time: 06/26/2024 8:53 AM Procedure: intubation ([id number]) Procedure Section: Sedation: under general anesthesia. Indications [...] Provider: Elvia Salinas APRN-CRNA, Performed the procedure MATION SOFTWARE ENGINEER documented in this encounter Miscellaneous Notes * Anesthesia Transfer of Care - Elvia Salinas APRN-CRNA - 06/26/2024 10:58 AM CST ANESTHESIA TRANSFER OF CARE NOTE Today's Date: 06/26/2024 Date of : 1960 Patient: Lou Sanches Garfield Procedure(s): LEFT SHOULDER ARTHROSCOPY, DECOMPRESSION LEFT SHOULDER [...] POST-OP MULTIPLE 06/26/24 1057 06/26/24 1057 HYDROcodone-acetaminophen ([place]) 5-325 MG tablet 1 tablet -- Sent [...] Right; Location: Hand; Gauge: 20 G 06/26/24 08 by Shelia Bobo RN ETT Date: 06/26/24; [...] EVENTS: No notable events documented. BO Conde MATION SOFTWARE ENGINEER documented in this encounter Plan of Treatment Not on file documented as of this encounter Procedures Procedure Name Priority Date/Time Associated Diagnosis Comments PERIPHERAL BLOCK Routine 06/26/2024 10:5 0 AM AUTOMATION SOFTWARE ENGINEER PERIPHERAL BLOCK Routine 06/26/2024 10:4 9 AM AUTOMATION SOFTWARE ENGINEER ENDOTRACHEAL TUBE NOTE Routine 06/26/2024 8:59 AM AUTOMATION SOFTWARE ENGINEER documented in this encounter Results * Peripheral Nerve Block (06/26/2024 10:50 AM AUTOMATION SOFTWARE ENGINEER) Narrative Alessia Mayfield DO - 06/26/2024 10:50 AM AUTOMATION SOFTWARE ENGINEER Alessia Mayfield DO 06/26/2024 10:51 AM Peripheral [...] completed Staff Section Anesthesia Provider: Alessia Mayfield DO Performed the procedure Additional Comments: Slow infiltration done after aspiration, a subcutaneous injection directed inferiorly near the axillary crease. Patient mildly sedated and tolerated well. . Alessia Mayfield DO GENERAL ANESTHESIA O RDERAMOR * Peripheral Nerve Block (06/26/2024 10:49 AM AUTOMATION SOFTWARE ENGINEER) Narrative Alessia Mayfield DO - 06/26/2024 10:49 AM AUTOMATION SOFTWARE ENGINEER Alessia Mayfield DO 06/26/2024 10:50 AM Peripheral [...] procedure Alessia Mayfield DO GENERAL ANESTHESIA O RDERAMOR * ETT LINE PERFORMABLE (06/26/2024 8:59 AM AUTOMATION SOFTWARE ENGINEER) Narrative Elvia Salinas APRN-CRNA - 06/26/2024 8:59 AM AUTOMATION SOFTWARE ENGINEER Elvia Salinas APRN-CRNA 06/26/2024 9:03 AM Endotracheal Tube Placement: Patient Location: OR. Intubation Event Date/Time: 06/26/2024 8:53 AM Procedure: intubation ([id number]) Procedure Section: Sedation: under general anesthesia. Indications [...] Anesthesia Intra-op $ Given 06/26/2024 8:20 AM AUTOMATION SOFTWARE ENGINEER 20 mL BUPivacaine 0.5% - EPINEPHrine 1:200,000 (PF) injection Infiltration, Starting on Claire 06/26/24 at 0824, Until Claire 06/26/24 at 0824, Anesthesia Intra-op $ Given 06/26/2024 8:24 AM AUTOMATION SOFTWARE ENGINEER 5 mL ceFAZolin (Ancef) syringe 2,000 mg 2,000 mg (2 g), Intravenous, ONCE, 1 dose, On Claire 06/26/24 at 0730, Administer within 60 minutes pre-op Administer over 3-5 minutes., Indication for anti-infective therapy: Surgical prophylaxis, Pre-op $ Given 06/26/2024 8:47 AM AUTOMATION SOFTWARE ENGINEER 2 g dexAMETHasone (Decadron) injection Intravenous, PRN, Starting on Claire 06/26/24 at 0852, Until Claire 06/26/24 at 1058, Anesthesia Intra-op $ Given 06/26/2024 8:52 AM AUTOMATION SOFTWARE ENGINEER 4 mg esmolol (Brevibloc) injection Intravenous, PRN, Starting on Claire 06/26/24 at 0852, Until Claire 06/26/24 at 1058, Anesthesia Intra-op $ Given 06/26/2024 8:52 AM AUTOMATION SOFTWARE ENGINEER 50 mg glycopyrrolate (Robinul) injection Intravenous, PRN, Starting on Claire 06/26/24 at 0926, Until Claire 06/26/24 at 1058, Anesthesia Intra-op $ Given 06/26/2024 9:26 AM AUTOMATION SOFTWARE ENGINEER 0.2 mg lactated ringers infusion at 100 mL/hr, Intravenous, CONTINUOUS, Starting on Claire 06/26/24 at 0730, Until Claire 06/26/24 at 1057, Pre-op $ New Bag/Syringe 06/26/2024 10:45 AM AUTOMATION SOFTWARE ENGINEER $ New Bag/Syringe 06/26/2024 8:03 AM AUTOMATION SOFTWARE ENGINEER 100 mL /hr lidocaine (Xylocaine) 1 % injection Infiltration, Starting on Claire 06/26/24 at 0820, Until Claire 06/26/24 at 0820, Anesthesia Intra-op $ Given 06/26/2024 8:20 AM AUTOMATION SOFTWARE ENGINEER 1 mL lidocaine (Xylocaine) 1 % injection Infiltration, Starting on Claire 06/26/24 at 0824, Until Claire 06/26/24 at 0824, Anesthesia Intra-op $ Given 06/26/2024 8:24 AM AUTOMATION SOFTWARE ENGINEER 1 mL lidocaine PF (Xylocaine MPF) 1 % injection Intravenous, PRN, Starting on Claire 06/26/24 at 0852, Until Claire 06/26/24 at 1058, Anesthesia Intra-op $ Given 06/26/2024 8:52 AM AUTOMATION SOFTWARE ENGINEER 100 mg midazolam (Versed) injection Intravenous, PRN, Starting on Claire 06/26/24 at 0817, Until Claire 06/26/24 at 1058, Anesthesia Intra-op $ Given 06/26/2024 8:17 AM AUTOMATION SOFTWARE ENGINEER 2 mg ondansetron (Zofran) injection Intravenous, PRN, Starting on Claire 06/26/24 at 0852, Until Claire 06/26/24 at 1058, Anesthesia Intra-op $ Given 06/26/2024 8:52 AM AUTOMATION SOFTWARE ENGINEER 4 mg propofol (Diprivan) injection Intravenous, PRN, Starting on Claire 06/26/24 at 0852, Until Claire 06/26/24 at 1058, Anesthesia Intra-op $ Given 06/26/2024 9:01 AM AUTOMATION SOFTWARE ENGINEER 20 mg $ Given 06/26/2024 8:52 AM AUTOMATION SOFTWARE ENGINEER 180 mg $ Given 06/26/2024 8:17 AM AUTOMATION SOFTWARE ENGINEER 20 mg succinylcholine (Anectine) injection Intravenous, PRN, Starting on Claire 06/26/24 at 0852, Until Claire 06/26/24 at 1058, Anesthesia Intra-op $ Given 06/26/2024 8:52 AM AUTOMATION SOFTWARE ENGINEER 100 mg tranexamic acid (Cyklokapron) injection 1,000 mg 1,000 mg, Intravenous, ONCE, 1 dose, On Claire 06/26/24 at 0730, Given by anesthesia, Intra-op $ Given 06/26/2024 8:55 AM AUTOMATION SOFTWARE ENGINEER 1,000 mg documented in this encounter Care Teams Leasing Manager Relationship Specialty Start Date End Date Fletcher Dockery MD [address] [place] [phone] PCP - General Family Medicine 06/03/24 documented as of this encounter
--- OUTSIDE RECORDS SUMMARY | 2024-06-27 07:29 | XMS_ITS | Clinical Summary ---
Author Organization [facility] [employer] Address [address] [facility] [place] [address] Care Team Providers Care Digital Asset Coordinator Name Role Phone Fletcher Dockery MD Primary Care Provider [phone]- [phone] Source Comments [facility] [employer],non-owned Affiliates and Associated Physician Practices is amultiple site organization consisting of ambulatory clinics and hospital sitesin [place], [place], [place] and [place]. This disclosure is being madepursuant to the Care Everywhere program and may not contain all information available regarding this patient. Last updated 18.[employer] Allergies Active Allergy Reactions Criticality Noted Date [...] 03/05/2024 5 Discontinue d(Clinical Decision) HYDROcodone-acet aminophen ([place]) 5-325 MG tablet Take 1 (one) tablet [...] (06/03/2024): Added automatically from request for surgery [id number] Spinal stenosis of lumbar region with radiculopa thy 01/18/2022 Overview (06/03/2024): Added automatically from request for surgery [id number] Acquired trigger finger of both ring fingers [...] Department Care Team Description 06/26/2024 9:00 AM ACCOUNTS RECEIVABLE SPECIALIST - 06/26/2024 11:10 AM ACCOUNTS RECEIVABLE SPECIALIST Surgery [facility] Surgery [address] [facility], [address] [place] [address] Estefanía Espinoza MD LEFT SHOULDER ARTHROSCOPY, DECOMPRESSION 06/26/2024 8:46 AM ACCOUNTS RECEIVABLE SPECIALIST Anesthesia Event [facility] Surgery [address] [facility], [address] [place] [address] Alessia Mayfield, Elvia Capellan, AUTOMOBILE MECHANIC SUPERVISOR-HEAD STRENGTH AND CONDITIONING COACH 06/26/2024 7:27 AM ACCOUNTS RECEIVABLE SPECIALIST - 06/26/2024 11:59 PM ACCOUNTS RECEIVABLE SPECIALIST Hospital Encounter [address], [address] [place] [address] Estefanía Espinoza MD Surgery General Discharge Disposition: Home or Self Care 06/26/2024 Refill [facility] [address] [place] [address], [address] [place] [address] Estefanía Espinoza MD MEDICATION REFILL 06/26/2024 Telephone [facility] [address] [place] [address], [address] [place] [address] Estefanía Espinoza MD Med Question 06/26/2024 Travel 2024 3:45 PM ACCOUNTS RECEIVABLE SPECIALIST Ancillary Procedure [facility] Orth[facility] - Radiology [address] [place] [phone] Estefanía Espinoza MD Chronic right shoulder pain 2024 3:20 PM ACCOUNTS RECEIVABLE SPECIALIST Office Visit [facility] [address] [place] [address], [facility] [address] [place] [address] Estefanía Espinoza MD Chronic left shoulder pain (Primary Dx); Nontraumatic complete tear of left rotator cuff; Chronic right shoulder pain; Tendinitis of right rotator cuff; Rheumatoid arthritis involving multiple sites, unspecified whether rheumatoid factor present ([facility]) 06/11/2024 8:34 AM ACCOUNTS RECEIVABLE SPECIALIST - 06/11/2024 11:59 PM ACCOUNTS RECEIVABLE SPECIALIST Hospital Encounter [facility] [address] [place] [address] [address] [place] [address] Estefanía Espinoza MD Discharge Disposition: Home or Self Care 06/11/2024 Travel 06/05/2024 Travel 06/03/2024 10:45 AM ACCOUNTS RECEIVABLE SPECIALIST Ancillary Procedure [facility] - Radiology [address] [place] [phone] Meagan Quiñones PA-C Chronic left shoulder pain 06/03/2024 10:30 AM ACCOUNTS RECEIVABLE SPECIALIST Office Visit [facility] [id number] [place] [address], [address] [place] [phone] Meagan Quiñones PA-C Nontraumatic complete tear of left rotator cuff (Primary Dx); Chronic left shoulder pain 06/03/2024 Telephone [facility] [address] [place] [address], [facility] [address] [place] [phone] Estefanía Espinoza MD Patient Requested Call (Patient called in to confirm that 06/26 will be a good date for sx for her . She will like a call back to confirm that you all got her reply /) 06/03/2024 Telephone [facility] [id number] [place] [address], [address] [place] [phone] Estefanía Espinoza MD Question from Last 3 [...] Comments Blood Pressure 146/84 06/26/2024 11:51 AM ACCOUNTS RECEIVABLE SPECIALIST Pulse 78 06/26/2024 12:01 PM ACCOUNTS RECEIVABLE SPECIALIST Temperature 36 C (96.8 F) 06/26/2024 10:58 AM ACCOUNTS RECEIVABLE SPECIALIST Respiratory Rate 14 06/26/2024 12:01 PM ACCOUNTS RECEIVABLE SPECIALIST Oxygen Saturation 94% 06/26/2024 12:01 PM ACCOUNTS RECEIVABLE SPECIALIST Inhaled Oxygen Concentration - - Weight 65.6 kg (144 lb 9.6 oz) 06/26/2024 7:35 A M ACCOUNTS RECEIVABLE SPECIALIST Height 154.9 cm (5' 1 ) 06/11/2024 8:55 AM ACCOUNTS RECEIVABLE SPECIALIST Body Mass Index 27.32 06/11/2024 8:55 AM ACCOUNTS RECEIVABLE SPECIALIST Plan of Treatment Health Maintenance Due Date [...] this topic Medical Devices Implanted Type Area Lozenge Dough Mixer Device Identifier Shelf Expiration Date Model / Serial / Lot Sys Impl Kntls Fibertape Speedbridge Implanted:Qty: 1 on 06/26/2024 by Estefanía Espinoza MD at [facility] Left: Shoulder [employer] 03/13/2028 [id number] -2 / / [id number] [place] S[place] Fibertak Kntls Slf Pnch 2.6mm Implanted:Qty: 1 on 06/26/2024 by Estefanía Espinoza MD at [facility] Left: Shoulder [employer] 03/13/2029 [id number] / / [id number] Procedures Procedure Name Priority Date/Time Associated Diagnosis Comments PERIPHERAL BLOCK Routine 06/26/2024 10:5 0 AM ACCOUNTS RECEIVABLE SPECIALIST PERIPHERAL BLOCK Routine 06/26/2024 10:4 9 AM ACCOUNTS RECEIVABLE SPECIALIST ENDOTRACHEAL TUBE NOTE Routine 06/26/2024 8:59 AM ACCOUNTS RECEIVABLE SPECIALIST XR SHOULDER RIGHT 2VW OR MORE Routine 2024 3:46 PM ACCOUNTS RECEIVABLE SPECIALIST Chronic right shoulder pain XR SHOULDER LEFT 2VW OR MORE Routine 06/03/2024 10:57 AM ACCOUNTS RECEIVABLE SPECIALIST Chronic left shoulder pain from Last 3 Months Results * Peripheral Nerve Block (06/26/2024 10:50 AM ACCOUNTS RECEIVABLE SPECIALIST) Narrative Alessia Mayfield DO - 06/26/2024 10:50 AM ACCOUNTS RECEIVABLE SPECIALIST Alessia Mayfield DO 06/26/2024 10:51 AM Peripheral [...] * Peripheral Nerve Block (06/26/2024 10:49 AM ACCOUNTS RECEIVABLE SPECIALIST) Narrative Alessia Mayfield DO - 06/26/2024 10:49 AM ACCOUNTS RECEIVABLE SPECIALIST Alessia Mayfield DO 06/26/2024 10:50 AM Peripheral [...] * ETT LINE PERFORMABLE (06/26/2024 8:59 AM ACCOUNTS RECEIVABLE SPECIALIST) Narrative Elvia Salinas APRN-CRNA - 06/26/2024 8:59 AM ACCOUNTS RECEIVABLE SPECIALIST Elvia Salinas APRN-CRNA 06/26/2024 9:03 AM Endotracheal Tube Placement: Patient Location: OR. Intubation Event Date/Time: 06/26/2024 8:53 AM Procedure: intubation (77224) Procedure Section: Sedation: under general anesthesia. Indications [...] Right 2Vw or More (2024 3:46 PM ACCOUNTS RECEIVABLE SPECIALIST) Narrative [facility] [address] - 2024 3:47 PM ACCOUNTS RECEIVABLE SPECIALIST Please see progress note in Epic for results. Estefanía Espinoza MD DIAGNOSTIC IMAGING ORDERABLES [facility] [address] * XR Shoulder Left 2Vw or More (06/03/2024 10:57 AM ACCOUNTS RECEIVABLE SPECIALIST) Narrative [facility] [address] - 06/03/2024 10:57 AM ACCOUNTS RECEIVABLE SPECIALIST Please see progress note in Epic for results. Meagan Quiñones PA-C DIAGNOSTIC IMAGING O RDERABLES [facility] [address] from Last 3 Months Care Teams Digital Asset Coordinator Relationship Specialty Start Date End Date Fletcher Dockery MD [address] [place] [phone] PCP - General Family Medicine 06/03/24
--- OUTSIDE RECORDS SUMMARY | 2024-06-27 07:29 | XMS_ITS | Encounter Summary ---
Author Organization [facility] Address [address] [place] [address] Care Team Providers Care Bus Person Name Role Phone Fletcher Dockery MD Primary Care Provider +1- [phone] Encounter Details Date Type Department Care Team [...] on filedocumented in this encounter Care Teams Bus Person Relationship Specialty Start Date End Date Fletcher Dockery MD [facility] [place] [phone] PCP - General Family Medicine 06/03/24 documented as of this encounter
--- OUTSIDE RECORDS SUMMARY | 2024-06-27 07:29 | XMS_ITS | Encounter Summary ---
Author Organization [facility] Address [address] [place] [address] Care Team Providers Care Homoeopath Name Role Phone Fletcher Dockery MD Primary Care Provider +1- [phone] Reason for Visit * Reason Onset Date Comments MEDICATION REFILL 06/26/2024 Encounter Details Date Type Department Care Team (Late st Contact Info) Description 06/26/2024 Refill [facility] Orthopedics [address] [place] [phone] [place]ef[place]ía [place] [address] [address] MEDICATION REFILL Social History Tobacco [...] * Telephone Encounter - Bruna Flores, Licensed Protection Specialist - 06/26/2024 1:39 PM CST Patients daughter states the oxycodone is not available at original pharmacy. I called pharmacy to cancel and am sending to new pharmacy daughter spoke with that said they had it in stock. US AGENT documented in this encounter Plan of Treatment Not on file documented as of this encounter Visit Diagnoses Diagnosis S/P rotator cuff repair Other postprocedural status documented in this encounter Care Teams Homoeopath Relationship Specialty Start Date End Date Fletcher Dockery MD [address] [place] [phone] PCP - General Family Medicine 06/03/24 documented as of this encounter
--- OUTSIDE RECORDS SUMMARY | 2024-06-27 07:29 | XMS_ITS | Encounter Summary ---
Author Organization [facility] Address [address] [facility] [place] [address] Care Team Providers Care Stippler Name Role Phone Fletcher Dockery MD Primary Care Provider +1- [phone] Reason for Visit * Auth/Cert (Routine) Specialty Diagnoses / Procedures Referred By Christian t Referred To Contact Diagnoses Tear of left rotator cuff, unspecified tear extent, unspecified whether traumatic Tear of left rotator cuff, unspecified tear extent, unspecified whether traumatic [M75.102] Procedures SC SHOULDER ARTHROSCOPY SC SCOPE SHLDR SURG;W/ROTOR CUFF SC ARTHROSCOPY BICEPS TENODESIS SC SHOULDER ARTHROSCOPY ARTHROSCOPY SHOULDER ARTHROSCOPY SHOULDER ROTATOR CUFF REPAIR (RCR) ARTHROSCOPY SHOULDER BICEP TENODESIS ARTHROSCOPY SHOULDER DISTAL CLAVICULECTOMY (LEYDA) Referral ID Status Reason Start Date Expiration Date Visits Re quested Visits Authorized [id number] 1 1 Encounter Details Date Type Department Care Team (Late st Contact Info) Description 06/26/2024 9:00 AM WELFARE AIDE - 06/26/2024 11:10 AM WELFARE AIDE Surgery [facility] - General Surgery [address] [facility] [address] [place] [address] [place]efanía [place] [address] [facility] [address] [place], [place] [id number] LEFT SHOULDER ARTHROSCOPY, DECOMPRESSION Social History Tobacco [...] Comments Blood Pressure 140/88 06/26/2024 11:10 AM WELFARE AIDE Pulse 86 06/26/2024 11:10 AM WELFARE AIDE Temperature 36 C (96.8 F) 06/26/2024 10:58 AM WELFARE AIDE Respiratory Rate 19 06/26/2024 11:10 AM WELFARE AIDE Oxygen Saturation 100% 06/26/2024 11:10 AM WELFARE AIDE Inhaled Oxygen Concentration - - Weight 65.6 kg (144 lb 9.6 oz) 06/26/2024 7:35 A M WELFARE AIDE Height - - Body Mass Index 27.32 06/11/2024 8:55 AM WELFARE AIDE documented in this encounter Medications at Time [...] She is right-hand dominant. 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 She has pain at night. She has [...] Lexapro, diclofenac, folic acid, methotrexate, Humira, trazodone. [place]. ALLERGIES: Fentanyl, sulfa, codeine SOCIAL HISTORY: She [...] belly press Negative speed's Mild pain with Laurel's Negative cross arm adduction On the right [...] dated 05/04/2024 was reviewed. This is from [facility]. This reveals a full-thickness rotator cuff tear [...] prescription for a lesser quantity than prescribed. ARE AIDE documented in this encounter OR Notes * Operative - Estefanía Espinoza MD - 06/26/2024 11:18 AM CST [facility] OPERATIVE REPORT PATIENT: : MAL EAST MR#: [id number] ADMIT DATE: 06/26/2024 CSN: [id number] DATE OF SURGERY: 06/26/2024 : 1960 PHYSICIAN: [...] Left shoulder subacromial decompression and acromioplasty. SURGEON: Estefaína Espinoza MD. STAMP PAD MAKER: Margoth Bunn. The skilled assistance of the PA-C/RN was necessary for the effective and successful completion of this case. The physician gift shop assistant was essential for the proper positioning, [...] in stable condition. MD PATIENCE Serrato/ELDA #: [id number] ARE AIDE documented in this encounter Plan of Treatment [...] hours., Pre-op $ Given 06/26/2024 8:10 AM WELFARE AIDE 3 mL 0.9% NaCl irrigation solution PRN, Starting on Claire 06/26/24 at 0934, Until Claire 06/26/24 at 1057, Intra-op $ Given 06/26/2024 10:33 AM WELFARE AIDE 3,000 mL Operative Site $ Given 06/26/2024 10:32 AM WELFARE AIDE 3,000 mL O perative Site $ Given 06/26/2024 10:29 AM WELFARE AIDE 3,000 mL O perative Site acetaminophen (Tylenol) [...] intake, Pre-op $ Given 06/26/2024 8:09 AM WELFARE AIDE 1,000 mg EPINEPHrine 1 MG/ML injection PRN, Starting on Claire 06/26/24 at 0915, Until Claire 06/26/24 at 1057, Intra-op $ Given 06/26/2024 9:58 AM WELFARE AIDE 2 mL Operative Site $ Given 06/26/2024 9:15 AM WELFARE AIDE 2 mL Op erative Site famotidine (Pepcid) injection 20 mg 20 mg, Intravenous, PRE-OP ONCE, 1 dose, On Claire 06/26/24 at 0815, Dilute with 0.9% NaCl, D5W solution, or SWI to a volume of 5 to 10 mL and administer over at least 2 minutes., Pre-op $ Given 06/26/2024 8:10 AM WELFARE AIDE 20 mg lactated ringers infusion at 100 mL/hr, Intravenous, CONTINUOUS, Starting on Claire 06/26/24 at 0730, Until Claire 06/26/24 at 1057, Pre-op $ New Bag/Syringe 06/26/2024 10:45 AM WELFARE AIDE $ New Bag/Syringe 06/26/2024 8:03 AM WELFARE AIDE 100 mL /hr ondansetron (Zofran) injection 4 mg 4 mg, Intravenous, ONCE PRN, Nausea/Vomiting, 1 dose, Starting on Claire 06/26/24 at 1057, Until Claire 06/26/24 at 1123, First choice, PACU $ Given 06/26/2024 11:23 AM WELFARE AIDE 4 mg scopolamine (Transderm-Scop) 1 patch 1 [...] 72 hours. $ Applied 06/26/2024 9:19 AM WELFARE AIDE 1 patch Behind Left Ear tranexamic acid (Cyklokapron) injection PRN, Starting on Claire 06/26/24 at 0958, Until Claire 06/26/24 at 1057, Intra-op $ Given 06/26/2024 9:58 AM WELFARE AIDE 2,000 mg Operative Site documented in this encounter Care Teams Stippler Relationship Specialty Start Date End Date Fletcher Dockery MD [address] [place] [phone] PCP - General Family Medicine 06/03/24 documented as of this encounter
--- OUTSIDE RECORDS SUMMARY | 2024-06-27 07:30 | XMS_ITS | Encounter Summary ---
Author Organization [employer] Address [address] [place] [address] Care Team Providers Care Farm Or Ranch Animal Caretaker Name Role Phone Ivanna Grigsby MD Primary Care Provider [phone] Encounter Details Date Type Department Care Team (Late st Contact Info) Description 08/13/2007 Outpatient Historical [facility] John Betancourt MD [address] [facility] [address] [address] Unspecified Urinary Incontinence; Cystocele, Midline; Complication NEC, [...] on file Legal Sex Female 3:41 AM SMOKING PIPE MOUNTER Gender Identity Not on file Sexual Orientation [...] PATHOLOGY (09/20/2007 3:36 PM CDT) FINAL REPORT [facility] [address] [place], [place] [address] Patient: MAL EAST : 1960 Procedure Date: 09/20/2007 Accession Date: 09/20/2007 Case No: [id number] Ordering Dr: JOHN BETANCOURT Case types AW, BW, FW, NW and SH are performed by [facility], [place], [place] SURGICAL PATHOLOGY & NON-GYNECOLOGIC CYTOPATHOLOGY REPORT [...] x 2.0 x 0.2 cm in aggregate. Fruit Press Operator sections are submitted in A1 and A2. [facility] 09.20.2007 04:19 pm Microscopic: The slide is labeled [id number] and Mal East. The vaginal mucosa shows [...] AM CDT) , URINE POC Negative Negative [facility] Urine specimen (specimen) 09/20/2007 9:10 AM CDT 09/20/2007 9:10 AM CDT John Betancourt MD POINT OF CARE TESTING F inal Result Performing Organization Address City/[facility]/ZIP Co de Phone Number [facility] CLIA# [id number] [address] [place] [address] * CBC WITH DIFFERENTIAL (09/06/2007 10:26 AM CDT) HEMATOCRIT 40.3 35.5 - 44.0 % [facility] RDW-STDEV 44.6 37.1 - 48.7 fL [facility] RBC 4.38 3.90 - 4.90 M/uL [facility] MCHC 32.8 31.5 - 35.5 % [facility] MCV 92.0 82.0 - 99.0 fL [facility] PLATELETS 262 140 - 350 K/uL [facility] HEMOGLOBIN 13.2 11.8 - 14.8 g/dL [facility] RDW 13.4 11.5 - 14.5 % [facility] WBC 5.9 4.0 - 9.8 K/uL [facility] MCH 30.1 27.2 - 32.6 pg [facility] MPV 10.4 9.3 - 12.4 fL [facility] BASOPHILS 0 0 - 2 % [facility] BASOPHILS ABSOLUTE 0.01 0.00 - 0.20 K/uL [facility] MONOCYTES 10 3 - 13 % [facility] MONOCYTE ABSOLUTE 0.60 0.10 - 1.30 K/uL [facility] NEUTROPHILS 48 45 - 70 % [facility] NEUTROPHIL ABSOLUTE 2.78 1.90 - 7.00 K/uL [facility] EOSINOPHILS 2 0 - 7 % [facility] EOSINOPHIL ABSOLUTE 0.09 0.00 - 0.70 K/uL [facility] LYMPHOCYTES 41 16 - 45 % [facility] LYMPHOCYTE ABSOLUTE 2.37 0.70 - 4.50 K/uL [facility] Blood specimen (specimen) 09/06/2007 10:26 AM CDT 09/06/2007 12:17 PM CDT us John Betancourt MD HEMATOLOGY ORDERABLES E dited INTERFACE SYSTEM Refer to clinic/hospital department [facility] [address] [place] [address] * (ABNORMAL) BASIC METABOLIC PANEL (09/06/2007 10:26 AM CDT) BUN 13 6 - 20 mg/dL [facility] CHLORIDE 107 96 - 108 mmol/L [facility] GLUCOSE 63(L) 65 - 99 mg/dL [facility] SODIUM 138 135 - 145 mmol/L [facility] CALCIUM 8.7 8.4 - 10.2 mg/dL [facility] CO2 24 22 - 30 mmol/L [facility] CREATININE 0.73 0.51 - 0.95 mg/dL [facility] POTASSIUM 4.1 3.5 - 4.9 mmol/L [facility] GFR, >60 >=60 mL/min/1.7 sq meter [facility] GFR >60 >=60 mL/min/1.7 sq meter [facility] Comment: Estimated GFR rate interpretative information for both Americans and non- Americans is available on the [facility] Intranet at: [email or web address] Select: Lab Policies and Procedures Select: Reference Ranges - GFR Blood specimen (specimen) 09/06/2007 10:26 AM CDT 09/06/2007 12:17 PM CDT us John Betancourt MD CHEMISTRY ORDERABLES Ed ited [facility] [address] [place] [address] documented in this encounter Visit Diagnoses Diagnosis [...] sulfonamides documented in this encounter Care Teams Farm Or Ranch Animal Caretaker Relationship Specialty Start Date End Date Ivanna Grigsby MD [address] [facility] IM RHEUMATOLOGY, [address] [phone] PCP - General Rheumatology 09/11/11 documented as of this encounter
--- OUTSIDE RECORDS SUMMARY | 2024-06-27 07:30 | XMS_ITS | Clinical Summary ---
Author Organization [facility] Care Team Providers Care Biochemistry Specialist Name Role Phone Unavailable Primary Care Provider Unavailabl e Social History Tobacco Use Types Packs/Day Years Used Date Smoking Tobacco: Never Assessed Comments Unknown Sex and Gender Information Value Date Recorded Sex Assigned at Not on file Legal Sex Female 3:41 PM UNIT TRUST MANAGER Gender Identity Not on file Sexual Orientation [...]
--- OUTSIDE RECORDS SUMMARY | 2024-06-27 07:30 | XMS_ITS | Encounter Summary ---
Author Organization [employer] Address [address] [place] [address] Care Team Providers Care Senior Formulation Scientist Name Role Phone Ivanna Grigsby MD Primary Care Provider [phone] Encounter Details Date Type Department Care Team (Latest Contact Info) Description 10/28/1998 Outpatient Historical [facility] Santiago Kruse MD [address] [place] [id number] Carpal tunnel syndrome (Primary Dx) Social History Tobacco Use Types Packs/Day Years Used Date Smoking Tobacco: Never Assessed Comments Unknown Sex and Gender Information Value Date Recorded Sex Assigned at Not on file Legal Sex Female 3:41 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
--- OUTSIDE RECORDS SUMMARY | 2024-06-27 07:30 | XMS_ITS | Clinical Summary ---
Author Organization [email or web address] Administrative Offices Address [address] [place] [address] Care Team Providers Care Tool Builder Name Role Phone Ivanna Grigsby MD Primary Care Provider Allergies Active Allergy Reactions Criticality Noted Date [...] on file Legal Sex Female 3:41 AM TUB WASH OPERATOR Gender Identity Not on file Sexual Orientation Not on file Occupation Industry Job Start Date Job End Date Not on file Not on file Not on file Not on file Last Filed Vital Signs Vital Sign Reading Time Taken Comments Blood Pressure 171/141 01/07/2013 9:17 AM CDT Pulse 80 07/02/2012 10:14 AM TUB WASH OPERATOR Temperature 37.3 C (99.1 F) 04/03/2012 6:00 PM TUB WASH OPERATOR Respiratory Rate 16 07/02/2012 10:14 AM TUB WASH OPERATOR Oxygen Saturation 96% 04/03/2012 6:00 PM TUB WASH OPERATOR Inhaled Oxygen Concentration - - Weight 66.7 [...] series) 2037 Medical Devices Implanted Type Area Behavioral Specialist Device Identifier Shelf Expiration Date Model / Serial / Lot Lumpia Wrapper Maker Tissue Mammary Med 550ml 354-6214 - [id number] Implanted:Qty : 1 on 09/11/2011 by Santiago Kruse MD at [facility] Mammary Left: Breast MENTOR TYSHAWN 06/14/2015 [id number] / [id number] Description:200ml injected i nto animal ecologist on left breast. Lumpia Wrapper Maker Tissue Mammary Med 650ml 354-6215 - [id number] Implanted:Qty : 1 on 01/10/2012 by Santiago Kruse MD at [facility] Mammary Right: Breast MENTOR TYSHAWN 11/11/2015 [id number] / / [id number] [place] Implanted:Qty : 1 on 04/03/2012 by Santiago Kruse MD at [facility] Right: Breast 03/13/2017 / [id number] / [id number] [place] Smooth Round High Profile Implanted:Qty : 1 on 04/03/2012 by Santiago Kruse MD at [facility] 02/11/2017 [id number] / [id number] / [id number] - Bladder Slings And Tapes - 1 - Sling Desara System Ledy-Ds01 Implanted:Qty : 1 on 09/03/2009 at [facility] Sling N/A: Vagina [employer] 06/05/2014 LEDY-DS01 / [id number] / [id number] Description:Vaginal [place] Explanted Type Area Behavioral Specialist Device Identifier Shelf Expiration Date Model / Serial / Lot Lumpia Wrapper Maker Tissue Mammary Med 550ml 354-6214 - [id number] Implanted:Qty: 1 on 09/11/2011 by Santiago Kruse MD at [facility] Explanted:Qty: 1 on 01/10/2012 at [facility] Mammary Right: Breast MENTOR TYSHAWN 354-6214 / [id number] Description:200ml injected i nto animal ecologist for Rt. breast Insurance BCBS BLUE ACCESS/TRUE BLUE PPO Advance Directives For more information, please contact: [phone] * Full Code (Latest Code Status on [...] 1:44 PM 01/10/2012 2:08 PM Care Teams Tool Builder Relationship Specialty Start Date End Date Ivanna Grigsby MD [address] [facility], [address] [address] PCP - General Rheumatology 09/11/11
--- OUTSIDE RECORDS SUMMARY | 2024-06-27 07:30 | XMS_ITS | Encounter Summary ---
Author Organization [employer] Address [address] [place] [address] Care Team Providers Care Chief Operator Lock Tender Name Role Phone Ivanna Grigsby MD Primary Care Provider [phone] Encounter Details Date Type Department Care Team (Latest Contact Info) Description 05/11/1998 Outpatient Historical [facility] Santiago Kruse MD [address] [place] [address] Hypertrophy of breast (Primary Dx) Social History Tobacco Use Types Packs/Day Years Used Date Smoking Tobacco: Never Assessed Comments Unknown Sex and Gender Information Value Date Recorded Sex Assigned at Not on file Legal Sex Female 3:41 AM EDITORIAL SPECIALIST Gender Identity Not on file Sexual Orientation Not on file documented as of this encounter Plan of Treatment Not on file documented as of this encounter Visit Diagnoses Diagnosis Hypertrophy of breast- Primary documented in this encounter Care Teams Chief Operator Lock Tender Relationship Specialty Start Date End Date Ivanna Grigsby MD [address] [facility] IM RHEUMAT[facility]Y, [address] [address] PCP - General Rheumatology 09/11/11 documented as of this encounter
--- OUTSIDE RECORDS SUMMARY | 2024-06-27 07:30 | XMS_ITS | Encounter Summary ---
Author Organization [employer] Address [address] [place] [address] Care Team Providers Care Pilot Steam Yacht Name Role Phone Ivanna Grigsby MD Primary Care Provider [phone] Encounter Details Date Type Department Care Team (Latest Contact Info) Description 07/28/2002 Outpatient Historical [facility] PATIENT IN A BED Santiago Kruse MD [address] [place] [address] DEVIATED NASAL SEPTUM (Primary Dx) Social History Tobacco Use Types Packs/Day Years Used Date Smoking Tobacco: Never Assessed Comments Unknown Sex and Gender Information Value Date Recorded Sex Assigned at Not on file Legal Sex Female 3:41 AM SOCIAL MEDIA MARKETING MANAGER Gender Identity Not on file Sexual Orientation Not on file documented as of this encounter Plan of Treatment Not on file documented as of this encounter Visit Diagnoses Diagnosis Deviated nasal septum- Primary documented in this encounter Care Teams Pilot Steam Yacht Relationship Specialty Start Date End Date Ivanna Grigsby MD [address] [facility] IM RHEUMATOLOGY, [address] [address] PCP - General Rheumatology 09/11/11 documented as of this encounter
--- OUTSIDE RECORDS SUMMARY | 2024-06-27 07:30 | XMS_ITS | Encounter Summary ---
Author Organization [employer] Address [address] [place] [address] Care Team Providers Care Monogram Operator Name Role Phone Ivanna Grigsby MD Primary Care Provider [phone] Encounter Details Date Type Department Care Team (Latest Contact Info) Description 04/08/1999 Outpatient Historical [facility] Santiago Kruse MD [address] [place] [address] Fibrosclerosis of breast (Primary Dx) Social History Tobacco Use Types Packs/Day Years Used Date Smoking Tobacco: Never Assessed Comments Unknown Sex and Gender Information Value Date Recorded Sex Assigned at Not on file Legal Sex Female 3:41 AM MUSHROOM PRESS OPERATOR Gender Identity Not on file Sexual Orientation Not on file documented as of this encounter Plan of Treatment Not on file documented as of this encounter Visit Diagnoses Diagnosis Fibrosclerosis of breast- Primary documented in this encounter Care Teams Monogram Operator Relationship Specialty Start Date End Date Ivanna Grigsby MD [address] [facility] DIV IM RHEUMATOLOGY, [address] [address] PCP - General Rheumatology 09/11/11 documented as of this encounter
--- OUTSIDE RECORDS SUMMARY | 2024-06-27 07:30 | XMS_ITS | Encounter Summary ---
Author Organization [employer] Address [address] [place] [address] Care Team Providers Care Certified Genetic Counselor Name Role Phone Ivanna Grigsby MD Primary Care Provider [phone] Encounter Details Date Type Department Care Team (Late st Contact Info) Description 12/02/2007 Outpatient Historical [facility], [address] Lo Shelley MD 1 [facility] [address], [place] [address] Urinary Tract Infection, Site not Specified Social History Tobacco Use Types Packs/Day Years Used Date Smoking Tobacco: Never Assessed Comments Unknown Sex and Gender Information Value Date Recorded Sex Assigned at Not on file Legal Sex Female 3:41 AM PORCELAIN ENAMELER Gender Identity Not on file Sexual Orientation Not on file documented as of this encounter Plan of Treatment Not on file documented as of this encounter Procedures Procedure Name Priority Date/Time Associated Diagnosis Comments URINE CULTURE Routine 12/02/2007 5:59 PM CDT documented in this encounter Results * URINE CULTURE (12/02/2007 5:59 PM CDT) PRELIMINARY REPORT Pending [facility] FINAL REPORT No growth 24 hours -- Faxed report(s): [phone] 12/03/07 5:12:54 PM [facility] 12/02/2007 5:59 PM CDT 12/02/2007 7:41 PM CDT Narrative [facility] - 12/03/2007 5:12 PM CDT fax [phone] us Lo Shelley MD MICROBIOLOGY - GENERAL ORDERABLES Final Result [facility] CLIA# [id number] [address] [place] [address] documented in this encounter Visit Diagnoses Diagnosis Urinary tract infection, site not specified documented in this encounter Care Teams Certified Genetic Counselor Relationship Specialty Start Date End Date Ivanna Grigsby MD [address] [facility] DIV IM RHEUMATOLOGY, [address] [address] PCP - General Rheumatology 09/11/11 documented as of this encounter
--- OUTSIDE RECORDS SUMMARY | 2024-06-27 07:30 | XMS_ITS | Encounter Summary ---
Author Organization [facility] Address [address] [facility] [place] [address] Care Team Providers Care Benefits Specialist Name Role Phone Fletcher Dockery MD Primary Care Provider [phone] Reason for Referral * (Routine) - Open Specialty Diagnoses / Procedures Referred By Christian saldaña Referred To Contact Procedures Follow up with provider Estef[place] [address] [place] [address] [place] [address] [place] [address] Referral ID Status Reason Start Date Expiration Date Visits Re quested Visits Authorized [id number] Open 06/26/2024 06/26/2025 1 1 TZ CUTTER Reason for Visit * Auth/Cert (Routine) Specialty Diagnoses / Procedures Referred By Christian saldaña Referred To Contact Diagnoses Tear of left rotator cuff, unspecified tear extent, unspecified whether traumatic Tear of left rotator cuff, unspecified tear extent, unspecified whether traumatic [M75.102] Procedures AR SHOULDER ARTHROSCOPY AR SCOPE SHLDR SURG;W/ROTOR CUFF AR ARTHROSCOPY BICEPS TENODESIS AR SHOULDER ARTHROSCOPY ARTHROSCOPY SHOULDER ARTHROSCOPY SHOULDER ROTATOR CUFF REPAIR (RCR) ARTHROSCOPY SHOULDER BICEP TENODESIS ARTHROSCOPY SHOULDER DISTAL CLAVICULECTOMY (LEYDA) Referral ID Status Reason Start Date Expiration Date Visits Re quested Visits Authorized [id number] 1 1 Encounter Details Date Type Department Care Team (Late st Contact Info) Description 06/26/2024 7:27 AM QUARTZ CUTTER - 06/26/2024 11:59 PM QUARTZ CUTTER Hospital Encounter [facility] - General Surgery [address] [facility], [address] [place], [place] [id number] Estefanía [place] [address] [place] [address] Surgery General Discharge Disposition: Home or Self [...] Comments Blood Pressure 146/84 06/26/2024 11:51 AM QUARTZ CUTTER Pulse 78 06/26/2024 12:01 PM QUARTZ CUTTER Temperature 36 C (96.8 F) 06/26/2024 10:58 AM QUARTZ CUTTER Respiratory Rate 14 06/26/2024 12:01 PM QUARTZ CUTTER Oxygen Saturation 94% 06/26/2024 12:01 PM QUARTZ CUTTER Inhaled Oxygen Concentration - - Weight 65.6 kg (144 lb 9.6 oz) 06/26/2024 7:35 A M QUARTZ CUTTER Height - - Body Mass Index 27.32 06/11/2024 8:55 AM QUARTZ CUTTER documented in this encounter Medications at Time [...] She is right-hand dominant. 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 She has pain at night. She has [...] Lexapro, diclofenac, folic acid, methotrexate, Humira, trazodone. [place]. ALLERGIES: Fentanyl, sulfa, codeine SOCIAL HISTORY: She [...] belly press Negative speed's Mild pain with [place]'s Negative cross arm adduction On the right [...] dated 05/04/2024 was reviewed. This is from [facility]. This reveals a full-thickness rotator cuff [...] prescription for a lesser quantity than prescribed. TZ CUTTER documented in this encounter OR Notes * Operative - Estefanía Espinoza MD - 06/26/2024 11:18 AM CST [facility] OPERATIVE REPORT PATIENT: : MAL EAST MR#: [id number] ADMIT DATE: 06/26/2024 CSN: [id number] DATE OF SURGERY: 06/26/2024 : 1960 PHYSICIAN: [...] decompression and acromioplasty. SURGEON: Estefanía Espinoza MD. CLEANER AND PREPARER: Margoth Bunn. The skilled assistance of the PA-C/RN was necessary for the effective and successful completion of this case. The physician integration assistant was essential for the proper positioning, [...] in stable condition. MD PATIENCE Serrato/ELDA #: [id number] TZ CUTTER documented in this encounter Plan of Treatment [...] hours., Pre-op $ Given 06/26/2024 8:10 AM QUARTZ CUTTER 3 mL acetaminophen (Tylenol) tablet 1,000 mg [...] intake, Pre-op $ Given 06/26/2024 8:09 AM QUARTZ CUTTER 1,000 mg famotidine (Pepcid) injection 20 mg 20 mg, Intravenous, PRE-OP ONCE, 1 dose, On Claire 06/26/24 at 0815, Dilute with 0.9% NaCl, D5W solution, or SWI to a volume of 5 to 10 mL and administer over at least 2 minutes., Pre-op $ Given 06/26/2024 8:10 AM QUARTZ CUTTER 20 mg lactated ringers infusion at 100 mL/hr, Intravenous, CONTINUOUS, Starting on Claire 06/26/24 at 0730, Until Claire 06/26/24 at 1057, Pre-op $ New Bag/Syringe 06/26/2024 10:45 AM QUARTZ CUTTER $ New Bag/Syringe 06/26/2024 8:03 AM QUARTZ CUTTER 100 mL /hr ondansetron (Zofran) injection 4 mg 4 mg, Intravenous, ONCE PRN, Nausea/Vomiting, 1 dose, Starting on Claire 06/26/24 at 1057, Until Claire 06/26/24 at 1123, First choice, PACU $ Given 06/26/2024 11:23 AM QUARTZ CUTTER 4 mg scopolamine (Transderm-Scop) 1 patch 1 [...] 72 hours. $ Applied 06/26/2024 9:19 AM QUARTZ CUTTER 1 patch Behind Left Ear documented in this encounter Care Teams Benefits Specialist Relationship Specialty Start Date End Date Fletcher Dockery MD [address] [place] [phone] PCP - General Family Medicine 06/03/24 documented as of this encounter
--- OUTSIDE RECORDS SUMMARY | 2024-06-27 07:30 | XMS_ITS | Continuity of Care Document ---
Author Organization [facility] Address [address] [place] [address] [address] [place] [address] Phone Care Team Providers Care Ep Technologist Name Role Phone Reyna Unger MD Unavailable [...] FOLLOW-UP VISIT POSTOP FOLLOW-UP VISIT OFFICE/OUTPATIENT VISIT [facility] Advance Directives Directive Yes / No Effective Date File Name No Information Encounters Encounter Description Practice Location Reason(s) For Visit Diagnoses Date Provider Providers Copied on Encounter [facility], [address] [place] [address], [address], tel:[phone] [facility] Trigger finger [address] [place], [place], [id number] . tel: [phone] [facility], [address], [address], tel:[phone] [facility] Trigger finger [address]. [address] [place], [place], [id number] . tel: [phone] [facility], [address] [place] [address], [address], tel:[phone] [facility] PO L thumb,R thumb (chief complaint) Trigger finger Nov-0 201 [address]a. [address] [place], [place], [id number] . tel: [phone] [facility], [address] [place] [address], [facility], tel:[phone] [facility] Trigger finger September-0 4 [address]a. [address] [place], [place], [id number] . tel: [phone] OFFICE/OUTPAT IENT VISIT [facility], [address] [place] [address], [facility], tel:[phone] [facility] Trigger finger Aug-0 8201 [address] [place], [place], [id number] . tel: [phone] [facility], [address] [place] [address], [facility], tel:[phone] [facility] Trigger finger Aug-0 8201 [address] [place], [place], [id number] . tel: [phone] Family History Family Member Type Diagnosis Age At Onset No Information Payers Payer name Insurance type Covered libertarian ID Authoriza tion(s) No Information Social History [...]
--- OUTSIDE RECORDS SUMMARY | 2024-06-27 07:31 | XMS_ITS | Encounter Summary ---
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 Author CCM Chronic Pain Care Plan Chronic Care Management Worsening( 1:16 PM CITRUS FRUIT COLORER) Yeny Barros RN Note: Problem: Chronic Pain [...] on filedocumented in this encounter Care Teams Buffing Wheel Presser Relationship Specialty Start Date End Date Fletcher Dockery MD [address] [place] [address] PCP - General Family Medicine 12/13/21 Sally Sutton MD [address] [place] [address] Medical Oncologist/Senior Geologist Medical Oncology 07/05/20 documented as of this encounter
--- OUTSIDE RECORDS SUMMARY | 2024-06-27 07:31 | XMS_ITS | Encounter Summary ---
Author Organization [facility] Address [address] [place] [address] Care Team Providers Care Associate Director Career Services Name Role Phone Sally Sutton MD Unavailable Fletcher Dockery MD Primary Care Provider [phone] Encounter Details Date Type Department Care Team (Late st Contact Info) Description 05/20/2024 Telephone [facility] [place] [facility] [address] [facility] [address] [place] [address] Nedra Antonio MD [address] [facility] [address] [facility] [phone] [place] [address] Social History Tobacco Use Types [...] on file Legal Sex Female 11:50 AM GOLF BALL TRIMMER Gender Identity Female 03/13/2018 3:16 PM CDT Sexual Orientation Not on file 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 Author CCM Chronic Pain Care Plan Chronic Care Management Worsening( 1:16 PM GOLF BALL TRIMMER) Yeny Barros, KUSH Note: Problem: Chronic Pain Goals: 1. Minimize further functional decline 2. Maximize quality of life 3. Control pain Strategies: - Activity/exercise program recommendation - Conservative stepwise pain medicine strategy with multi-disciplinary approach - Recommend healthy lifestyle strategies and compensatory methods as needed documented as of this encounter Visit Diagnoses Not on filedocumented in this encounter Care Teams Associate Director Career Services Relationship Specialty Start Date End Date Fletcher Dockery MD [address] [place] [address] [address] [place] [address] PCP - General Family Medicine 12/13/21 Sally Sutton MD [address] [place] [address] [address] [place] [address] Medical Oncologist/Slot Ambassador Medical Oncology 07/05/20 documented as of this encounter
--- OUTSIDE RECORDS SUMMARY | 2024-06-27 07:31 | XMS_ITS | Encounter Summary ---
Author Organization [facility] Address [address] [place] [address] Phone Care Team Providers Care Ui Programmer Name Role Phone David Bush MD Primary Care Provider [phone] Sally Sutton MD Unavailable Fletcher Dockery MD Primary Care Provider [phone] Encounter Details Date Type Department Care Team [...] on file Legal Sex Female 11:50 AM VP SITE Gender Identity Female 03/13/2018 3:16 PM CDT [...] COVID: Suspected 04/21/2021 04/21/2021 04/21/2021 8:01 PM VP SITE documented as of this encounter Care Teams Ui Programmer Relationship Specialty Start Date End Date David Bush MD [address] [place] [address] PCP - General Family Medicine 09/11/18 12/12/21 Fletcher Dockery MD [address] [facility] [address] [place], [place] [id number] PCP - General Family Medicine 12/13/21 Sally Sutton MD [address] [facility] [address] [place] [address] Medical Oncologist/Shuttle Van Driver Medical Oncology 07/05/20 documented as of this encounter
--- OUTSIDE RECORDS SUMMARY | 2024-06-27 07:31 | XMS_ITS | Clinical Summary ---
Author Organization [facility] Address [address] [place] [address] Care Team Providers Care See Supervisor Name Role Phone Sally Sutton MD Unavailable Fletcher Dockery MD Primary Care Provider [phone] Allergies Active Allergy Reactions Criticality Noted Date [...] (01/18/2022): Added automatically from request for surgery [id number] Spinal stenosis of lumbar region with radiculopa thy 01/18/2022 Overview (01/18/2022): Added automatically from request for surgery [id number] Scoliosis of lumbar spine 12/19/2021 Chronic left-sided low back pain without sciatic a 11/07/2021 Lumbar radiculopathy - Left 11/07/2021 COVID-19 virus infection 08/16/2020 Acquired trigger finger of both ring fingers 09/2020 Carbuncle of nasal septum 12/29/2019 Assessment & Plan (12/29/2019 5:28 PM CDT): Will treat with doxycycline 100 mg b.i.d. Radial styloid tenosynovitis (de quervain) 05/26 Assessment & Plan (05/26/2019 7:06 PM VARYING EXCEPTIONALITIES TEACHER): I discussed with the patient that I [...] ng multiple sites with positive rheumatoid factor ([facility]) 10/29/2017 Assessment & Plan (12/25/2022 8:51 [...] disorders. 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 We discussed resuming Humira. I would like [...] 01/29/2018 07/22/2018 Depression with anxiety 10/29/201710/12 Cancer ([facility]) 10/29/2017 10/29/2017 Inflammatory arthritis 08/20/201707/22 Encounter [...] Department Care Team Description 06/16/2024 11:00 AM VARYING EXCEPTIONALITIES TEACHER Office Visit [facility] [address] [place] [address] Aimee William DNP Malignant neoplasm of upper-outer quadrant of right breast in female, estrogen receptor negative (HCC) (Primary Dx); Malignant neoplasm of female breast, unspecified estrogen receptor status, unspecified laterality, unspecified site of breast (HCC) 06/16/2024 10:00 AM VARYING EXCEPTIONALITIES TEACHER [facility] [address] [place] [address] Malignant neoplasm of female breast, unspecified estrogen receptor status, unspecified laterality, unspecified site of breast (HCC) 05/20/2024 Orders Only [facility] [place] [facility] [address] [place] [address] [facility] [address] [place] [address] Nedra Antonio MD Rotator cuff tear arthropathy of left shoulder (Primary Dx); Acute pain of left shoulder 05/20/2024 Telephone [facility] [place] [facility] [address] [facility] [address] [place] [address] Nedra Antonio MD 05/04/2024 9:41 AM VARYING EXCEPTIONALITIES TEACHER - 05/04/2024 11:59 PM VARYING EXCEPTIONALITIES TEACHER Hospital Encounter [facility] [address] [place] [address] Acute pain of left shoulder; Rotator cuff tear arthropathy of left shoulder Discharge Disposition: Discharge to home or self care 04/21/2024 12:59 PM VARYING EXCEPTIONALITIES TEACHER - 04/21/2024 11:59 PM VARYING EXCEPTIONALITIES TEACHER Hospital Encounter [facility] [place] [facility] [address] [place] [address] [facility] [address] [place] [address] Nedra Antonio MD Acute pain of left shoulder (Primary Dx); Rotator cuff tear arthropathy of left shoulder; Foraminal stenosis of cervical region Discharge Disposition: Discharge to home or self care 04/04/2024 Telephone [facility] [place] [facility] [address] [place] [address] Nedra Antonio MD from Last 3 Months [...] on file Legal Sex Female 11:50 AM VARYING EXCEPTIONALITIES TEACHER Gender Identity Female 03/13/2018 3:16 PM CDT Sexual Orientation Not on file 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 file Not on file Not [...] Comments Blood Pressure 105/79 06/16/2024 10:36 AM VARYING EXCEPTIONALITIES TEACHER Pulse 79 06/16/2024 10:36 AM VARYING EXCEPTIONALITIES TEACHER Temperature 36.1 C (97 F) 06/16/2024 10:36 AM VARYING EXCEPTIONALITIES TEACHER Respiratory Rate 18 06/16/2024 10:36 AM VARYING EXCEPTIONALITIES TEACHER Oxygen Saturation 98% 06/16/2024 10:36 AM VARYING EXCEPTIONALITIES TEACHER Inhaled Oxygen Concentration - - Weight 64.9 kg (143 lb) 06/16/2024 10:36 AM VARYING EXCEPTIONALITIES TEACHER Height 154.5 cm (5' 0.83 ) 06/16/2024 10:[address] Body Mass Index 27.17 06/16/2024 10:36 AM VARYING EXCEPTIONALITIES TEACHER Plan of Treatment Health Maintenance Due Date [...] Plan Chronic Care Management Worsening( 1:16 PM VARYING EXCEPTIONALITIES TEACHER) Yeny Barros, KUSH Note: Problem: Chronic Pain Goals: 1. Minimize further functional decline 2. Maximize quality of life 3. Control pain Strategies: - Activity/exercise program recommendation - Conservative stepwise pain medicine strategy with multi-disciplinary approach - Recommend healthy lifestyle strategies and compensatory methods as needed Medical Devices Implanted Type Area Ball Winder Device Identifier Shelf Expiration Date Model / Serial / Lot Medtronic Inc Bmp Infuse Sm [id number] - Sn/A - [id number] Implanted:Qty : 1 on 02/21/2022 by Jamari Mendez MD at [facility] Other - see comments N/A: Spine Lumbar Medtronic Inc 05/14/2024 [id number] / N/A / [id number] Description:Implant pause pe rformed [employer] Creo Od6.5 Mm L50 Mm Thread Polyaxial Spine Screw Bone Titanium 5146.1652 - [id number] Implanted:Qty : 4 on 02/21/2022 by Jamari Mendez MD at [facility] N/A: Spine Lumbar [employer] 5146.1652 / / [employer] Creo Thread Spinal Cap Locking Nonsterile 1119.0010 - [id number] Implanted:Qty : 4 on 02/21/2022 by Jamari Mendez MD at [facility] N/A: Spine Lumbar [employer] 1119.0010 / / [employer] Creo 5.5mm 45mm Curve Neo Spinal Titanium 1119.7045 - [id number] Implanted:Qty : 1 on 02/21/2022 by Jamari Mendez MD at [facility] N/A: Spine Lumbar [employer] 1119.7045 / / [employer] Creo 5.5mm 45mm Curve Noe Spinal Titanium 1119.7045 - [id number] Implanted:Qty : 1 on 02/21/2022 by Jamari Mendez MD at [facility] N/A: Spine Lumbar [employer] 1119.7045 / / [employer] Altera [id number] 8d Spacer Spinal 1124.1011 - [id number] Implanted:Qty : 1 on 02/21/2022 by Jamari Mendez MD at [facility] N/A: Spine Lumbar [employer] 1124.1011 / / Allosource Freeze Dried Crushed 1-4mm Graft 15ml Bone Cancellous [id number] - [id number] Implanted:Qty : 1 on 02/21/2022 by Jamari Mendez MD at [facility] N/A: Spine Lumbar [employer] 05/22/2026 [id number] / / [id number] Procedures Procedure Name Priority Date/Time Associated Diagnosis Comments EGFR Routine 06/16/2024 10:22 AM VARYING EXCEPTIONALITIES TEACHER Malignant neoplasm of female breast, unspecified estrogen receptor status, unspecified laterality, unspecified site of breast (HCC) DIFFERENTIAL AUTO Routine 06/16/2024 10: 22 AM VARYING EXCEPTIONALITIES TEACHER Malignant neoplasm of female breast, unspecified estrogen receptor status, unspecified laterality, unspecified site of breast (HCC) CBC WITH AUTO DIFFERENTIAL Routine 06/16/2024 10:22 AM VARYING EXCEPTIONALITIES TEACHER Malignant neoplasm of female breast, unspecified estrogen receptor status, unspecified laterality, unspecified site of breast (HCC) COMPREHENSIVE METABOLIC PANEL Routine 06/16/2024 10:22 AM VARYING EXCEPTIONALITIES TEACHER Malignant neoplasm of female breast, unspecified estrogen receptor status, unspecified laterality, unspecified site of breast (HCC) MRI SHOULDER LEFT WO CONTRAST Schedule Routine, Read Routine (OP Routine) 05/04/2024 10:33 AM VARYING EXCEPTIONALITIES TEACHER Acute pain of left shoulder Rotator cuff tear arthropathy of left shoulder PAIN MGMT IMAGING SHOULDER, HIP, KNEE JOINT/BURSA INJ LEFT Schedule Routine, Read Routine (OP Routine) 04/21/2024 3:04 PM VARYING EXCEPTIONALITIES TEACHER Acute pain of left shoulder Rotator cuff tear arthropathy of left shoulder from Last 3 Months Results * eGFR (06/16/2024 10:22 AM VARYING EXCEPTIONALITIES TEACHER) eGFR 89 >=60 mL/min/1. 73 m2 Comment: [...] last reviewed 2021. Testing performed by: [facility], [address] [place] [address] Blood 06/16/2024 10:2 2 AM VARYING EXCEPTIONALITIES TEACHER 06/16/2024 10:40 AM VARYING EXCEPTIONALITIES TEACHER us Sally Sutton MD LAB BLOOD ORDERABLES Final Resul t [facility] [address] Department of Laboratories [place], [place] [id number] * Differential, auto (06/16/2024 10:22 AM VARYING EXCEPTIONALITIES TEACHER) Neutrophil abs 3.1 1.5 - 6.5 K/cumm Comment:Testing performed by : [facility] 2, [address] [place] [address] Imm gran abs 0.0 0.0 - 0.1 K/cumm [facility] Comment:Testing performed by : [facility], [address] [place] [address] Lymphocyte abs 2.3 0.8 - 3.3 K/cumm [facility] Comment:Testing performed by : [facility], [address] [place] [address] Monocyte abs 0.7 0.2 - 0.8 K/cumm [facility] Comment:Testing performed by : [facility], [address] [place] [address] Eosinophil abs 0.2 0.0 - 0.5 K/cumm [facility] Comment:Testing performed by : [facility], [address] [place] [address] Basophil abs 0.0 0.0 - 0.1 K/cumm [facility] Comment:Testing performed by : [facility], [address] [place] [address] Neutrophil pct 49.2 % [facility] Comment: Interpretive Data Percent cell count reference ranges are not reported, since discordance with absolute values may lead to misinterpretation of CBC data. Current Interpretive Data was last revised on 2017. Testing performed by: [facility], [address] [place] [address] Imm gran pct 0.3 % [facility] Comment: Interpretive Data Percent cell count reference ranges are not reported, since discordance with absolute values may lead to misinterpretation of CBC data. Current Interpretive Data was last revised on 2017. Testing performed by: [facility], [facility], [address] [place] [address] Lymphocyte pct 36.6 % [facility] Comment: Interpretive Data Percent cell count reference ranges are not reported, since discordance with absolute values may lead to misinterpretation of CBC data. Current Interpretive Data was last revised on 2017. Testing performed by: [facility], [facility], [address] [place] [address] Monocyte pct 10.6 % [facility] Comment: Interpretive Data Percent cell count reference ranges are not reported, since discordance with absolute values may lead to misinterpretation of CBC data. Current Interpretive Data was last revised on 2017. Testing performed by: [facility], [facility], [address] [place] [address] Eosinophil pct 2.7 % [facility] Comment: Interpretive Data Percent cell count reference ranges are not reported, since discordance with absolute values may lead to misinterpretation of CBC data. Current Interpretive Data was last revised on 2017. Testing performed by: [facility], [facility], [address] [place] [address] Basophil pct 0.6 % [facility] Comment: Interpretive Data Percent cell count reference ranges are not reported, since discordance with absolute values may lead to misinterpretation of CBC data. Current Interpretive Data was last revised on 2017. Testing performed by: [facility], [facility], [address] [place] [address] Blood 06/16/2024 10:2 2 AM VARYING EXCEPTIONALITIES TEACHER 06/16/2024 10:23 AM VARYING EXCEPTIONALITIES TEACHER us Sally Sutton MD LAB BLOOD ORDERABLES Final Resul t [facility] [address] [place] [address] * (ABNORMAL) CBC with auto differential (06/16/2024 10:22 AM VARYING EXCEPTIONALITIES TEACHER) WBC 6.2 3.8 - 9.9 K/cumm Comment:Testing performed by : [place] [address], [address] [place] [address] Hgb 13.4 11.9 - 15.5 g/dL [facility] Comment:Testing performed by : [place] [address], [address] [place] [address] Hct 40.8 35.6 - 45.5 % [facility] Comment:Testing performed by : [place] [address], [address] [place] [address] Plt 256 150 - 400 K/cumm [facility] Comment:Testing performed by : [place] [address], [address] [place] [address] MPV 8.5(L) 9.1 - 12.3 fL [facility] Comment:Testing performed by : [place] [address], [address] [place] [address] RBC 4.29 3.90 - 5.20 M/cumm [facility]IN Comment:Testing performed by : [place] [address], [address] [place] [address] MCV 95 81 - 96 fL CH[facility] CLARKEAILYN Comment:Testing performed by : [place] [address], [address] [place] [address] MCH 31.2 27.1 - 33.3 pg [facility] Comment:Testing performed by : [facility] 2, [address] [place] [address] MCHC 32.8 32.3 - 35.7 g/dL [facility] Comment:Testing performed by : [place] [address], [address] [place] [address] RDW CV 13.4 11.1 - 14.9 % [facility] Comment:Testing performed by : [facility], [facility], [address] [place] [address] RDW SD 46.9 35.7 - 48.1 fL [facility] Comment:Testing performed by : [facility], [facility], [address] [place] [address] Blood 06/16/2024 10:2 2 AM VARYING EXCEPTIONALITIES TEACHER 06/16/2024 10:23 AM VARYING EXCEPTIONALITIES TEACHER us Sally Sutton MD LAB BLOOD ORDERABLES Final Resul t [facility]STILLO [address] [place] [address] * Comprehensive metabolic panel (06/16/2024 10:22 AM VARYING EXCEPTIONALITIES TEACHER) Sodium 141 135 - 145 mmol/L Comment:Testing performed by : [facility], [address] [place] [address] Potassium, pl 4.3 3.3 - 4.9 mmol/L [facility] Comment:Testing performed by : [facility], [address] [place] [address] Chloride 106 97 - 110 mmol/L [facility] Comment:Testing performed by : [facility], [address] [place] [address] CO2 25 22 - 32 mmol/L [facility] Comment:Testing performed by : [facility], [address] [place] [address] Anion gap 10 2 - 15 mmol/L [facility] Comment:Testing performed by : [facility], [address], [place] [address] BUN 22 6 - 25 mg/dL [facility] Comment:Testing performed by : [facility], [address], [place] [address] Creatinine 0.76 0.60 - 1.10 mg/dL [facility] Comment:Testing performed by : [facility], [address], [place] [address] Glucose 89 70 - 199 mg/dL CERNER [...] last revised 2022. Testing performed by: [facility], [address], [place] [address] Calcium 9.4 8.5 - 10.3 mg/dL [facility] Comment:Testing performed by : [facility], [address], [place] [address] Bilirubin, total 0.6 0.1 - 1.2 mg/dL [facility] Comment:Testing performed by : [facility], [address], [place] [address] Protein, pl 7.0 6.5 - 8.5 g/dL [facility] Comment:Testing performed by : [facility], [address], [place] [address] Albumin 4.0 3.5 - 5.0 g/dL [facility] Comment:Testing performed by : [facility], [address], [place] [address] Alk phos 61 40 - 130 Units/L [facility] Comment:Testing performed by : [facility], [address], [place] [address] ALT 18 7 - 45 Units/L [facility] Comment:Testing performed by : [facility], [address], [place] [address] AST 19 10 - 45 Units/L [facility] Comment:Testing performed by : [facility], [address] [place] [address] Blood 06/16/2024 10:2 2 AM VARYING EXCEPTIONALITIES TEACHER 06/16/2024 10:40 AM VARYING EXCEPTIONALITIES TEACHER us Sally Sutton MD LAB BLOOD ORDERABLES Final Resul t [facility] [address]. [place] [address] * MRI Shoulder Left WO Contrast (05/04/2024 10:33 AM VARYING EXCEPTIONALITIES TEACHER) Anatomical Region Laterality Modality Upper Extremities Left Magnetic Reson ance 05/04/2024 10:4 6 AM VARYING EXCEPTIONALITIES TEACHER Impressions 05/04/2024 10:59 AM VARYING EXCEPTIONALITIES TEACHER 1. Rotator cuff tendinopathy with focal full-thickness [...] Hawkins MD, PHD Narrative 05/04/2024 10:59 AM VARYING EXCEPTIONALITIES TEACHER EXAMINATION: 1. MRI left shoulder without contrast [...] Joint/Bursa INJ Left () (04/21/2024 3:04 PM VARYING EXCEPTIONALITIES TEACHER) Narrative [facility] - 04/21/2024 3:04 PM VARYING EXCEPTIONALITIES TEACHER The images from this study are not interpreted by Radiology. Please refer to the physician's procedure / OR operative note. Domenico Grewal MD IMG PAIN MGMT PROCEDURES F inal Result RAD_PACS[facility] from Last 3 Months Insurance [employer] [place] [facility] [place] Advance Directives For more information, please contact: [phone] * Full Code (Latest Code Status on File) Date Activated Date Inactivated Comments 02/21/2022 1:53 PM 02/24/2022 10:09 PM Care Teams See Supervisor Relationship Specialty Start Date End Date Fletcher Dockery MD [address] [place] [address] PCP - General Family Medicine 12/13/21 Sally Sutton MD [address] [place] [address] Medical Oncologist/Supervisor [facility] Medical Oncology 07/05/20
--- OUTSIDE RECORDS SUMMARY | 2024-06-27 07:31 | XMS_ITS | Encounter Summary ---
Author Organization [facility] Healthcare Address [address] [place] [address] Care Team Providers Care Watch And Clock Repair Clerk Name Role Phone Sally Sutton MD Unavailable Fletcher Dockery MD Primary Care Provider [phone] Reason for Visit * Reason Onset Date Comments question 12/29/2021 Encounter Details Date Type Department Care Team (Late st Contact Info) Description 12/29/2021 Telephone [facility] [address] [facility] [address] [place] [address] Nedra Antonio MD [address] [facility] [address] [facility] [place] [place] [id number] [place], [place] [id number] question Social History Tobacco Use Types Packs/Day [...] on file Legal Sex Female 11:50 AM FINANCIAL DEALERS Gender Identity Female 03/13/2018 3:16 PM CDT Sexual Orientation Not on file documented as of this encounter Plan of Treatment Not on file documented as of this encounter Goals Goal Patient Goal Type Associated Problems Recent Progress Patient-Stated? Author CCM Chronic Pain Care Plan Chronic Care Management Worsening( 1:16 PM FINANCIAL DEALERS) No Yeny Porter RN Note: Problem: Chronic Pain Goals: 1. Minimize further functional decline 2. Maximize quality of life 3. Control pain Strategies: - Activity/exercise program recommendation - Conservative stepwise pain medicine strategy with multi-disciplinary approach - Recommend healthy lifestyle strategies and compensatory methods as needed documented as of this encounter Visit Diagnoses Not on filedocumented in this encounter Care Teams Watch And Clock Repair Clerk Relationship Specialty Start Date End Date Fletcher Dockery MD [address] [place] [address] PCP - General Family Medicine 12/13/21 Sally Sutton MD [address] [place] [address] Medical Oncologist/Caustic Pump Operator Medical Oncology 07/05/20 documented as of this encounter
--- OUTSIDE RECORDS SUMMARY | 2024-06-27 07:31 | XMS_ITS ---
Author Organization [facility] Address [address] [place] [address] Care Team Providers Care Product Safety Associate Name Role Phone Sally Sutton MD Unavailable Fletcher Dockery MD Primary Care Provider [phone] Active Problems Problem Noted Date Diagnosed Date [...] (01/18/2022): Added automatically from request for surgery [id number] Spinal stenosis of lumbar region with radiculopa thy 01/18/2022 Overview (01/18/2022): Added automatically from request for surgery [id number] Scoliosis of lumbar spine 12/19/2021 Chronic left-sided low back pain without sciatic a 11/07/2021 Lumbar radiculopathy - Left 11/07/2021 COVID-19 virus infection 08/16/2020 Acquired trigger finger of both ring fingers 09/2020 Carbuncle of nasal septum 12/29/2019 Assessment & Plan (12/29/2019 5:28 PM CDT): Will treat with doxycycline 100 mg b.i.d. Radial styloid tenosynovitis (de quervain) 05/26 Assessment & Plan (05/26/2019 7:06 PM FEDERAL APPELLATE CLERK): I discussed with the patient that I [...] ng multiple sites with positive rheumatoid factor ([facility]) 10/29/2017 Assessment & Plan (12/25/2022 8:51 [...] disorders. 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 We discussed resuming Humira. I would like [...] treatments are documented for this patient in [facility]. Treatments may have been administered in another [...] 01/29/2018 07/22/2018 Depression with anxiety 10/29/201710/12 Cancer ([facility]) 10/29/2017 10/29/2017 Inflammatory arthritis 08/20/201707/22 Encounter [...]
--- OUTSIDE RECORDS SUMMARY | 2024-06-27 07:31 | XMS_ITS | Referral Summary ---
Author Organization [facility] Address [address] [place] [address] Care Team Providers Care Clipper Operator Name Role Phone Sally Sutton MD Unavailable Fletcher Dockery MD Primary Care Provider [phone] Encounters Date Type Department Care Team Description 06/16/2024 11:00 AM RIVER GUIDE Office Visit [facility] [address] [facility] [address] [place] [phone] Aimee William DNP Malignant neoplasm of upper-outer quadrant of right breast in female, estrogen receptor negative (HCC) (Primary Dx); Malignant neoplasm of female breast, unspecified estrogen receptor status, unspecified laterality, unspecified site of breast (HCC) 06/16/2024 10:00 AM RIVER GUIDE Lab [facility] at [address] [phone] Malignant neoplasm of female breast, unspecified estrogen receptor status, unspecified laterality, unspecified site of breast (HCC) 05/20/2024 Orders Only [facility] [address] [facility] Advanced [address] [address] Nedra Antonio MD Rotator cuff tear arthropathy of left shoulder (Primary Dx); Acute pain of left shoulder 05/20/2024 Telephone [facility] [address] [facility] for [facility] [address] [place] [address] Nedra Antonio MD 05/04/2024 9:41 AM RIVER GUIDE - 05/04/2024 11:59 PM RIVER GUIDE Hospital Encounter [facility] [address] [place] [id number] Acute pain of left shoulder; Rotator cuff tear arthropathy of left shoulder Discharge Disposition: Discharge to home or self care 04/21/2024 12:59 PM RIVER GUIDE - 04/21/2024 11:59 PM RIVER GUIDE Hospital Encounter [facility] [address] [place] [address] for Advanced Medicine [address] [place] [address] Nedra Antonio MD Acute pain of left shoulder (Primary Dx); Rotator cuff tear arthropathy of left shoulder; Foraminal stenosis of cervical region Discharge Disposition: Discharge to home or self care 04/04/2024 Telephone [facility] [address] [place] [address] Advanced Medicine [address] [place] [address] Nedra Antonio MD from Last 3 Months [...] (01/18/2022): Added automatically from request for surgery [id number] Spinal stenosis of lumbar region with radiculopa thy 01/18/2022 Overview (01/18/2022): Added automatically from request for surgery [id number] Scoliosis of lumbar spine 12/19/2021 Chronic left-sided low back pain without sciatic a 11/07/2021 Lumbar radiculopathy - Left 11/07/2021 COVID-19 virus infection 08/16/2020 Acquired trigger finger of both ring fingers 09/2020 Carbuncle of nasal septum 12/29/2019 Assessment & Plan (12/29/2019 5:28 PM CDT): Will treat with doxycycline 100 mg b.i.d. Radial styloid tenosynovitis (de quervain) 05/26 Assessment & Plan (05/26/2019 7:06 PM RIVER GUIDE): I discussed with the patient that I [...] ng multiple sites with positive rheumatoid factor ([facility]) 10/29/2017 Assessment & Plan (12/25/2022 8:51 AM [...] disorders. 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 We discussed resuming Humira. 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 Not on file Not on file Not on file Last Filed Vital Signs Vital Sign Reading Time Taken Comments Blood Pressure 105/79 06/16/2024 10:36 AM RIVER GUIDE Pulse 79 06/16/2024 10:36 AM RIVER GUIDE Temperature 36.1 C (97 F) 06/16/2024 10:36 AM RIVER GUIDE Respiratory Rate 18 06/16/2024 10:36 AM RIVER GUIDE Oxygen Saturation 98% 06/16/2024 10:36 AM RIVER GUIDE Inhaled Oxygen Concentration - - Weight 64.9 kg (143 lb) 06/16/2024 10:36 AM RIVER GUIDE Height 154.5 cm (5' 0.83 ) 06/16/2024 10:[address] Body Mass Index 27.17 06/16/2024 10:36 AM RIVER GUIDE Plan of Treatment Not on file Goals Goal Patient Goal Type Associated Problems Recent Progress Patient-Stated? Author CCM Chronic Pain Care Plan Chronic Care Management Worsening( 1:16 PM RIVER GUIDE) Yeny Barros, RN Note: Problem: Chronic Pain Goals: 1. Minimize further functional decline 2. Maximize quality of life 3. Control pain Strategies: - Activity/exercise program recommendation - Conservative stepwise pain medicine strategy with multi-disciplinary approach - Recommend healthy lifestyle strategies and compensatory methods as needed Medical Devices Implanted Type Area Diesel Truck Driver Device Identifier Shelf Expiration Date Model / Serial / Lot Medtronic Inc Bmp Infuse Sm [id number] - Sn/A - [id number] Implanted:Qty : 1 on 02/21/2022 by Jamari Mendez MD at [facility] Other - see comments N/A: Spine Lumbar Medtronic Inc 05/14/2024 [id number] / N/A / [id number] Description:Implant pause pe rformed [employer] Creo Od6.5 Mm L50 Mm Thread Polyaxial Spine Screw Bone Titanium 5146.1652 - [id number] Implanted:Qty : 4 on 02/21/2022 by Jamari Mendez MD at [facility] N/A: Spine Lumbar [employer] 5146.1652 / / [employer] Creo Thread Spinal Cap Locking Nonsterile 1119.0010 - [id number] Implanted:Qty : 4 on 02/21/2022 by Jamari Mendez MD at [facility] N/A: Spine Lumbar [employer] 1119.0010 / / [employer] Creo 5.5mm 45mm Curve Neo Spinal Titanium 1119.7045 - [id number] Implanted:Qty : 1 on 02/21/2022 by Jamari Mendez MD at [facility] N/A: Spine Lumbar [employer] 1119.7045 / / [employer] Creo 5.5mm 45mm Curve Neo Spinal Titanium 1119.7045 - [id number] Implanted:Qty : 1 on 02/21/2022 by Jamari Mendez MD at [facility] N/A: Spine Lumbar [employer] 1119.7045 / / [employer] Altera [id number] 8d Spacer Spinal 1124.1011 - [id number] Implanted:Qty : 1 on 02/21/2022 by Jamari Mendez MD at [facility] N/A: Spine Lumbar [employer] 1124.1011 / / Allosource Freeze Dried Crushed 1-4mm Graft 15ml Bone Cancellous [id number] - [id number] Implanted:Qty : 1 on 02/21/2022 by Jamari Mendez MD at [facility] N/A: Spine Lumbar [employer] 05/22/2026 [id number] / / [id number] Procedures Procedure Name Priority Date/Time Associated Diagnosis Comments EGFR Routine 06/16/2024 10:22 AM RIVER GUIDE Malignant neoplasm of female breast, unspecified estrogen receptor status, unspecified laterality, unspecified site of breast (HCC) DIFFERENTIAL AUTO Routine 06/16/2024 10: 22 AM RIVER GUIDE Malignant neoplasm of female breast, unspecified estrogen receptor status, unspecified laterality, unspecified site of breast (HCC) CBC WITH AUTO DIFFERENTIAL Routine 06/16/2024 10:22 AM RIVER GUIDE Malignant neoplasm of female breast, unspecified estrogen receptor status, unspecified laterality, unspecified site of breast (HCC) COMPREHENSIVE METABOLIC PANEL Routine 06/16/2024 10:22 AM RIVER GUIDE Malignant neoplasm of female breast, unspecified estrogen receptor status, unspecified laterality, unspecified site of breast (HCC) MRI SHOULDER LEFT WO CONTRAST Schedule Routine, Read Routine (OP Routine) 05/04/2024 10:33 AM RIVER GUIDE Acute pain of left shoulder Rotator cuff tear arthropathy of left shoulder PAIN MGMT IMAGING SHOULDER, HIP, KNEE JOINT/BURSA INJ LEFT Schedule Routine, Read Routine (OP Routine) 04/21/2024 3:04 PM RIVER GUIDE Acute pain of left shoulder Rotator cuff tear arthropathy of left shoulder from Last 3 Months Results * eGFR (06/16/2024 10:22 AM RIVER GUIDE) eGFR 89 >=60 mL/min/1. 73 m2 Comment: [...] was last reviewed 2021. Testing performed by: [facility], [address] [place] [address] Blood 06/16/2024 10:2 2 AM RIVER GUIDE 06/16/2024 10:40 AM RIVER GUIDE us Sally Sutton MD LAB BLOOD ORDERABLES Final Resul t [facility] [address]. [place] [address] * Differential, auto (06/16/2024 10:22 AM RIVER GUIDE) Neutrophil abs 3.1 1.5 - 6.5 K/cumm Comment:Testing performed by : [facility], [facility], [address] [place] [address] Imm gran abs 0.0 0.0 - 0.1 K/cumm CERNER [facility] Comment:Testing performed by : [facility] 2, [address] [place] [address] Lymphocyte abs 2.3 0.8 - 3.3 K/cumm CERGOPAL [facility] Comment:Testing performed by : [facility] 2, [address] [place] [address] Monocyte abs 0.7 0.2 - 0.8 K/cumm CERGOPAL [facility] Comment:Testing performed by : [facility] 2, [address] [place] [address] Eosinophil abs 0.2 0.0 - 0.5 K/cumm CERGOPAL [facility] Comment:Testing performed by : [facility] 2, [address] [place] [address] Basophil abs 0.0 0.0 - 0.1 K/cumm [facility] Comment:Testing performed by : [facility] 2, [address] [place] [address] Neutrophil pct 49.2 % [facility] Comment: Interpretive Data Percent cell count reference ranges are not reported, since discordance with absolute values may lead to misinterpretation of CBC data. Current Interpretive Data was last revised on 2017. Testing performed by: [facility], [facility] 2, [address] [place] [address] Imm gran pct 0.3 % [facility] Comment: Interpretive Data Percent cell count reference ranges are not reported, since discordance with absolute values may lead to misinterpretation of CBC data. Current Interpretive Data was last revised on 2017. Testing performed by: [facility], [facility] 2, [address] [place] [address] Lymphocyte pct 36.6 % [facility] Comment: Interpretive Data Percent cell count reference ranges are not reported, since discordance with absolute values may lead to misinterpretation of CBC data. Current Interpretive Data was last revised on 2017. Testing performed by: [facility], [facility] 2, [address] [place] [address] Monocyte pct 10.6 % [facility] Comment: Interpretive Data Percent cell count reference ranges are not reported, since discordance with absolute values may lead to misinterpretation of CBC data. Current Interpretive Data was last revised on 2017. Testing performed by: [facility], [facility] 2, [address] [place] [address] Eosinophil pct 2.7 % [facility] Comment: Interpretive Data Percent cell count reference ranges are not reported, since discordance with absolute values may lead to misinterpretation of CBC data. Current Interpretive Data was last revised on 2017. Testing performed by: [facility], [facility] 2, [address] [place] [address] Basophil pct 0.6 % [facility] Comment: Interpretive Data Percent cell count reference ranges are not reported, since discordance with absolute values may lead to misinterpretation of CBC data. Current Interpretive Data was last revised on 2017. Testing performed by: [facility], [facility] 2, [address] [place] [address] Blood 06/16/2024 10:2 2 AM RIVER GUIDE 06/16/2024 10:23 AM RIVER GUIDE us Sally Sutton MD LAB BLOOD ORDERABLES Final Resul t [facility] [address] [facility] Department [place] [address] * (ABNORMAL) CBC with auto differential (06/16/2024 10:22 AM RIVER GUIDE) WBC 6.2 3.8 - 9.9 K/cumm Comment:Testing performed by : [facility] 2, [address] [place] [address] Hgb 13.4 11.9 - 15.5 g/dL [facility] Comment:Testing performed by : [facility] 2, [address] [place] [address] Hct 40.8 35.6 - 45.5 % [facility]ARKE[facility] Comment:Testing performed by : [facility], [facility] 2, [address] [place] [address] Plt 256 150 - 400 K/cumm [facility] Comment:Testing performed by : [facility] 2, [address] [place] [address] MPV 8.5(L) 9.1 - 12.3 fL [facility] Comment:Testing performed by : [facility] 2, [address] [place] [address] RBC 4.29 3.90 - 5.20 M/cumm [facility] Comment:Testing performed by : [facility] 2, [address] [place] [address] MCV 95 81 - 96 fL [facility] Comment:Testing performed by : [facility] 2, [address] [place] [address] MCH 31.2 27.1 - 33.3 pg [facility] Comment:Testing performed by : [facility], [facility] 2, [address] [place] [address] MCHC 32.8 32.3 - 35.7 g/dL [facility] Comment:Testing performed by : [facility], [facility] 2, [address] [place] [address] RDW CV 13.4 11.1 - 14.9 % [facility] Comment:Testing performed by : [facility], [facility] 2, [address] [place] [address] RDW SD 46.9 35.7 - 48.1 fL [facility] Comment:Testing performed by : [facility], [facility] , [address] [place] [address] Blood 06/16/2024 10:2 2 AM RIVER GUIDE 06/16/2024 10:23 AM RIVER GUIDE us Sally Sutton MD LAB BLOOD ORDERABLES Final Resul t [facility] [address]. [place] [address] * Comprehensive metabolic panel (06/16/2024 10:22 AM RIVER GUIDE) Sodium 141 135 - 145 mmol/L Comment:Testing performed by : [facility], [address] [place] [address] Potassium, pl 4.3 3.3 - 4.9 mmol/L [facility] Comment:Testing performed by : [facility], [address] [place] [address] Chloride 106 97 - 110 mmol/L [facility] Comment:Testing performed by : [facility], [address] [place] [address] CO2 25 22 - 32 mmol/L [facility] Comment:Testing performed by : [facility], [address] [place] [address] Anion gap 10 2 - 15 mmol/L [facility] Comment:Testing performed by : [facility], [address], [place] [address] BUN 22 6 - 25 mg/dL [facility] Comment:Testing performed by : [facility], [address], [place] [address] Creatinine 0.76 0.60 - 1.10 mg/dL [facility] Comment:Testing performed by : [facility], [address], [place] [address] Glucose 89 70 - 199 mg/dL CERNER [...] was last revised 2022. Testing performed by: [facility], [address], [place] [address] Calcium 9.4 8.5 - 10.3 mg/dL [facility] Comment:Testing performed by : [facility], [address], [place] [address] Bilirubin, total 0.6 0.1 - 1.2 mg/dL [facility] Comment:Testing performed by : [facility], [address], [place] [address] Protein, pl 7.0 6.5 - 8.5 g/dL [facility] Comment:Testing performed by : [facility], [address], [place] [address] Albumin 4.0 3.5 - 5.0 g/dL [facility] Comment:Testing performed by : [facility], [address], [place] [address] Alk phos 61 40 - 130 Units/L [facility] Comment:Testing performed by : [facility], [address], [place] [address] ALT 18 7 - 45 Units/L [facility] Comment:Testing performed by : [facility], [address], [place] [address] AST 19 10 - 45 Units/L [facility] Comment:Testing performed by : [facility], [address], [place], [place] [address] Blood 06/16/2024 10:2 2 AM RIVER GUIDE 06/16/2024 10:40 AM RIVER GUIDE us Sally Sutton MD LAB BLOOD ORDERABLES Final Resul t [facility] [address]. [place] [address] * MRI Shoulder Left WO Contrast (05/04/2024 10:33 AM RIVER GUIDE) Anatomical Region Laterality Modality Upper Extremities Left Magnetic Reson ance 05/04/2024 10:4 6 AM RIVER GUIDE Impressions 05/04/2024 10:59 AM RIVER GUIDE 1. Rotator cuff tendinopathy with focal full-thickness [...] Hawkins MD, PHD Narrative 05/04/2024 10:59 AM RIVER GUIDE EXAMINATION: 1. MRI left shoulder without contrast [...] Joint/Bursa INJ Left () (04/21/2024 3:04 PM RIVER GUIDE) Narrative [facility] - 04/21/2024 3:04 PM RIVER GUIDE The images from this study are not interpreted by Radiology. Please refer to the physician's procedure / OR operative note. Domenico Grewal MD IMG PAIN MGMT PROCEDURES F inal Result [facility] from Last 3 Months Insurance [facility] [place] Advance Directives For more information, please contact: [phone] * Full Code (Latest Code Status on File) Date Activated Date Inactivated Comments 02/21/2022 1:53 PM 02/24/2022 10:09 PM Care Teams Clipper Operator Relationship Specialty Start Date End Date Fletcher Dockery MD [address] [place] [address] PCP - General Family Medicine 12/13/21 Sally Sutton MD [address] [place] [address] Medical Oncologist/[facility]er Hand Medical Oncology 07/05/20
--- OUTSIDE RECORDS SUMMARY | 2024-06-27 07:31 | XMS_ITS | Encounter Summary ---
Author Organization [facility] Address [address] [place] [address] Phone Care Team Providers Care Electrophysiology Technologist Name Role Phone Sally Sutton MD Unavailable Fletcher Dockery MD Primary Care Provider [phone] Encounter Details Date Type Department Care Team [...] on file Legal Sex Female 11:50 AM MANAGER RFID Gender Identity Female 03/13/2018 3:16 PM CDT Sexual Orientation Not on file documented as of this encounter Plan of Treatment Not on file documented as of this encounter Goals Goal Patient Goal Type Associated Problems Recent Progress Patient-Stated? Author CCM Chronic Pain Care Plan Chronic Care Management Worsening( 1:16 PM MANAGER RFID) Yeny Barros, KUSH Note: Problem: Chronic Pain [...] on filedocumented in this encounter Care Teams Electrophysiology Technologist Relationship Specialty Start Date End Date Fletcher Dockery MD [address] [place] [address] PCP - General Family Medicine 12/13/21 Sally Sutton MD [address] [place] [address] Medical Oncologist/Receipt And Report Clerk Medical Oncology 07/05/20 documented as of this encounter
[2024-06-27] MEDS: ONDANSETRON INJ 4 MG/2 ML VIAL IV PUSH (08:15)
[2024-06-27] MEDS: HYDROmorphone HCL INJ (*CRX) 1 MG/ML SYR IV PUSH (08:16)
--- NOTE | 2024-06-27 09:12 | ED_ITS ---
HPI - General Adult General Chief complaint: Extremity Injury, Upper Stated complaint: L shoulder pain after rotator cuff surgery 06/26 Time Seen by Provider: 06/27/24 07:05 Source: patient Limitations: no limitations History of Present Illness HPI narrative: 64-year-old status post rotator cuff surgery done yesterday at [facility] by Dr. Megan Espinoza here with a complaints of intense pain in the left shoulder , she states she has taken oxycodone, hydrocodone along with Tylenol with no significant relief. She states she called the doctor's exchange and recommended to come to the ER. She denies any chest pain. Onset (ago): hour(s) (6) Location: upper extremity (left shoulder) Radiation: non-radiation Severity: severe Quality: aching Pain Consistency: constant Relieving factors: none Exacerbating factors: none Associated symptoms: denies other symptoms Related Data Home Medications ?Medication ?Instructions ?Recorded ?Confirmed ?Last Taken ?Type folic acid 1 mg tablet 1 mg PO DAILY 07/17/22 05/02/24 Unknown History pantoprazole 40 mg tablet,delayed 40 mg PO DAILY 09/13/23 05/02/24 Unknown History release methotrexate sodium 2.5 mg tablet 20 mg PO WEEKLY 10/15/23 05/02/24 Unknown History estradiol 0.01% (0.1 mg/gram) 1 applic vaginal PRN 03/05/24 05/02/24 Unknown History vaginal cream Allergies Allergy/AdvReac Type Severity Reaction Status Date / Time codeine Allergy Unknown itching Verified 06/27/24 06:35 Sulfa (Sulfonamide Allergy Unknown itching, Verified 06/27/24 06:35 Antibiotics) headache fentanyl Allergy Nausea and Verified 06/27/24 06:35 Vomiting Review of Systems Review of Systems: All systems reviewed & are unremarkable except as noted in HPI and below Constitutional: Constitutional: Reports no additional constitutional complaints Eyes: Eyes: Reports no additional eye complaints ENT: Reports system reviewed and no additional complaints, except as documented Cardiovascular: Cardiovascular: Reports no additional cardiovascular complaints Respiratory: Respiratory: Reports no additional respiratory complaints Gastrointestinal: Gastrointestinal: Reports no additional gastrointestinal complaints Musculoskeletal: Musculoskeletal: Reports as per HPI [facility] Past Medical History Medical History Colon cancer screening Hearing loss Thyroid nodule Sleep apnea Overweight (BMI 25.0-29.9) Rheumatoid arthritis Shingles Breast cancer Anxiety Depression Arthritis UTI (urinary tract infection) Surgical History Surgical History S/P lumbar spinal fusion History of bladder surgery H/O mastectomy H/O: hysterectomy Hx of tonsillectomy Social History Social History Smoking status: Former smoker Tobacco type: cigarettes Alcohol intake: current Drinks per week: 6 Lack of Transportation: No Lack of Food: Never True Current Housing: I Have Housing Concerned About Future Housing: No Difficulty Paying Gas/Electric Bills: No Difficulty Paying for Meds: No Currently Unemployed: No Education: Trade/Vocational Certificate Difficulty w/ Childcare or Family Care: No Living arrangements: alone Gender identity (if verbalized by the patient): Female Exam Narrative: GENERAL: Well-appearing, well-nourished, and in no acute distress. HEAD: Normocephalic, atraumatic. EYES: PERRLA and EOMI. NECK: Supple. CHEST: Clear to auscultation. No respiratory distress. HEART: Regular rate and rhythm. No murmur heard. Normal peripheral pulses. left shoulder in a sling , operative site looks healthy EXTREMITIES: Normal range of motion. No edema. SKIN: Warm, dry, no rash. NEURO: No focal deficits. Alert and oriented x3. PSYCH: Normal mood and affect. Course Course Emergency Course: Pain much improved after hydromorphone. I did discuss with her orthopedic doctor at [facility] will follow-up in the office. Discharge Plan Discharge Clinical Impression: Post-operative pain Patient Disposition: Home, Self-Care Condition: Stable Instructions: Pain Management After Surgery (DC) Additional Instructions: Continue home medications, follow with your Orthopedic Surgeon . Patient Language: Stateless Prescriptions: No Action folic acid 1 mg tablet 1 mg PO DAILY Humira Pen 40 mg/0.8 mL pen injector kit See Rx Instructions subcut .COMPLEX Qty: 2 0RF Rx Instructions: inject one - 40 mg/0.8 mL pen every 2 weeks subcut mirabegron [Myrbetriq] 25 mg tablet extended release 24 hr 25 mg PO DAILY Qty: 90 3RF estradiol 0.01 % (0.1 mg/gram) cream 1 applic vaginal PRN pantoprazole 40 mg tablet,delayed release (DR/EC) 40 mg PO DAILY methotrexate sodium 2.5 mg tablet 20 mg PO WEEKLY Rx Instructions: 2.5 x8 tablets one time per week bupropion HCl 150 mg tablet extended release 24 hr 150 mg PO QAM Qty: 90 1RF trazodone 100 mg tablet 100 mg PO QHS PRN (Reason: sleep) Qty: 30 5RF diclofenac sodium 75 mg tablet,delayed release (DR/EC) 75 mg PO BID Qty: 180 0RF Zepbound 5 mg/0.5 mL solution 5 mg subcut WEEKLY Qty: 2 3RF hydrocodone-acetaminophen 5-325 mg tablet 1 tablet PO Q6H PRN (Reason: pain) Qty: 30 0RF escitalopram oxalate 20 mg tablet See Rx Instructions .ROUTE .COMPLEX Qty: 90 1RF Dose Instruction: TAKE 1 TABLET BY MOUTH DAILY Rx Instructions: TAKE 1 TABLET BY MOUTH DAILY Follow-up/Referrals: Fletcher Dockery MD [Primary Care Provider] - Time of Disposition: 09:14
== END 2024-06-27 09:35 | disposition home or self-care (01) ==
PROVIDERS: Emergency Provider Family Medicine; PCP Family Medicine
DX: G89.18 Other acute postprocedural pain (principal); M25.512 Pain in left shoulder; G47.30 Sleep apnea, unspecified; E66.3 Overweight; Z68.26 Body mass index [BMI] 26.0-26.9, adult; M06.9 Rheumatoid arthritis, unspecified; M19.012 Primary osteoarthritis, left shoulder; F32.A Depression, unspecified; F41.9 Anxiety disorder, unspecified; Z98.1 Arthrodesis status; Z85.3 Personal history of malignant neoplasm of breast; Z87.440 Personal history of urinary (tract) infections; Z87.891 Personal history of nicotine dependence; Z90.710 Acquired absence of both cervix and uterus; Z90.10 Acquired absence of unspecified breast and nipple
CPT/HCPCS: 73030; 96374; 96375; 99284; J1171; J2405

== ENCOUNTER 2024-09-25 08:00 | Outpatient (RCR) | payer BC, SELFPAY ==
--- NOTE | 2024-06-16 08:34 | PCPTNOTE ---
pt did not show for today's PT evaluation appt.
--- NOTE | 2024-07-24 09:03 | OPREHPOC ---
Outpatient Therapy Plan of Care This is a Multidisciplinary Plan of Care that may contain components documented by all disciplines (PT, OT, and ST.) PT Problem 1 PT Problem #1 Knowledge Deficit PT Goal 1 Goal / Goal Update *indep with HEP Target Visit 10 PT Goal 1 Goal / Goal Update * pain rating of 4/10 at worst, with increased activity Target Visit 10 PT Problem 3 PT Problem #3 Impaired Range of Motion PT Goal 1 Goal / Goal Update active L shoulder ROM in standin* flexion to 140 2* ER - reach behind head, palm to back of head 3* IR- reaching towards back, palm to sacrum Target Visit 10 PT Problem 4 PT Problem #4 Impaired Strength PT Goal 1 Goal / Goal Update HOLDbegin strengthening at 10 weeks post op: September 01
--- NOTE | 2024-07-24 09:03 | PTOPEVAL1 ---
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 She is R hand dominant. Self assessment with the DASH rating of 50% limitation in activity level. With the evaluation: Passive L shoulder ROM: flexion 100', ER with elbow at side of 40'; also has cervical pain. Skilled PT services are indicated for modalities to decrease pain, therapeutic exercises to increase L shoulder ROM and strength--per protocol and education for HEP and posture. Plan of Care Interventions Hot Pack/Cold Pack,Manual Therapy,Neuro Re- education,Patient/Caregiver Education,Therapeutic Activities,Therapeutic Exercise,Other Other Interventions taping PT Services Indicated Yes Treatment Frequency and 2x/wk for 10 visits Duration These treatments will address the objective and functional deficits as defined above. The patient will be advanced safely and appropriately in order for the patient to progress towards his/her prior level of function. Additional exercises will be introduced and as well as a comprehensive home exercise program upon discharge, if needed, ?to ensure carryover of functional gains achieved in the clinic. This treatment plan has been reviewed and agreement upon by the patient.
--- NOTE | 2024-07-25 13:49 | PCPTNOTE ---
Pt. called and cancelled this date for physical therapy because she was in too much pain and wants to rest.
[2024-08-21 08:05] VITALS: BP_SYST 140
--- NOTE | 2024-08-21 09:04 | OPREHPOC ---
Outpatient Therapy Plan of Care This is a Multidisciplinary Plan of Care that may contain components documented by all disciplines (PT, OT, and ST.) PT Problem 1 PT Problem #1 Knowledge Deficit PT Goal 1 Goal / Goal Update *indep with HEP 08-21-24 progress met goal continue to progress HEP and education Target Visit 19 PT Goal 1 Goal / Goal Update * pain rating of 4/10 at worst, with increased activity 08-21-24 progress goal not met, 6/10 at worst continue towards goal Target Visit 19 PT Problem 3 PT Problem #3 Impaired Range of Motion PT Goal 1 Goal / Goal Update active L shoulder ROM in standin* flexion to 140 2* ER - reach behind head, palm to back of head 3* IR- reaching towards back, palm to sacrum 08-21-24 progress met goals NEW GOALS: 1* flexion to 155' 2* abduction to 140' 3* IR- reach behind back, fingers to lower edge scapula Target Visit 19 PT Problem 4 PT Problem #4 Impaired Strength PT Goal 1 Goal / Goal Update HOLDbegin strengthening at 10 weeks post op: September 01 08-21-24 progress NEW GOALS: perform standing with hand weight x 10 reps: 1* flexion to 90' with 3# 2* ER with elbow at side, 3# 3* bilateral UE box lift: waist/floor height 20# x 3 reps Target Visit 19
--- NOTE | 2024-08-21 09:05 | PTOPPROG ---
Assessment and note entered by Sofía Vazquez, PT Assessment Status Progress ICD-10 Condition Codes (PT) Pain in left shoulder M25.512,Weakness R53.1, Encounter for other orthopedic aftercare Z47.89 Onset 06-26-24 Subjective Information returned to work last week, but only doing 1 hair appointment/hr ( her normal is 2/hour); arm gets tired and do much activity; doing the exercises at home; shoulder is much better, but still not strong enough to do work; PAIN: range in the past week 2- 6 increase pain: use of arm with doing hair and home tasks decrease pain: rest, ice no prescription meds or over the counter meds is sleeping on the couch; cannot get comfortable in the bed, even with pillow support; Assessment PT Clinical Summary Lou has received 9 PT sessions. 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 The goals were achieved, except pain rating. Continue PT treatment, progression to strengthening per protocol. Plan of Care Interventions Hot Pack/Cold Pack,Manual Therapy,Neuro Re- education,Patient/Caregiver Education,Therapeutic Activities,Therapeutic Exercise,Other Other Interventions taping PT Services Indicated Yes Treatment Frequency and 1-2x/wk for 10 visits Duration These treatments will address the objective and functional deficits as defined above. The patient will be advanced safely and appropriately in order for the patient to progress towards his/her prior level of function. Additional exercises will be introduced and as well as a comprehensive home exercise program upon discharge, if needed, ?to ensure carryover of functional gains achieved in the clinic. This treatment plan has been reviewed and agreement upon by the patient.
--- NOTE | 2024-09-25 09:07 | OPREHPOC ---
Outpatient Therapy Plan of Care This is a Multidisciplinary Plan of Care that may contain components documented by all disciplines (PT, OT, and ST.) PT Problem 1 PT Problem #1 Knowledge Deficit PT Goal 1 Goal / Goal Update *indep with HEP 08-21-24 progress met goal continue to progress HEP and education 09-25-24 progress goal met continue to progress HEP and education Target Visit 29 PT Goal 1 Goal / Goal Update * pain rating of 4/10 at worst, with increased activity 08-21-24 progress goal not met, 6/10 at worst continue towards goal 09-25-24 progress goal met NEW GOAL: 1* pain rating of 3/10 at worst 2* pt report able to tolerate working 8 hour day Target Visit 29 PT Problem 3 PT Problem #3 Impaired Range of Motion PT Goal 1 Goal / Goal Update active L shoulder ROM in standin* flexion to 140 2* ER - reach behind head, palm to back of head 3* IR- reaching towards back, palm to sacrum 08-21-24 progress met goals NEW GOALS: 1* flexion to 155' 2* abduction to 140' 3* IR- reach behind back, fingers to lower edge scapula 09-25-24 progress goal 2 met, continue towards goal 1 & 3 Target Visit 29 PT Problem 4 PT Problem #4 Impaired Strength PT Goal 1 Goal / Goal Update HOLDbegin strengthening at 10 weeks post op: September 01 08-21-24 progress NEW GOALS: perform standing with hand weight x 10 reps: 1* flexion to 90' with 3# 2* ER with elbow at side, 3# 3* bilateral UE box lift: waist/floor height 20# x 3 reps 09-25-24 progress goals not met continue towards Target Visit 29
--- NOTE | 2024-09-25 09:07 | PTOPPROG ---
Assessment and note entered by Sofaí Vazquez, PT Assessment Status Progress ICD-10 Condition Codes (PT) Pain in left shoulder M25.512,Weakness R53.1, Encounter for other orthopedic aftercare Z47.89 Onset 06-26-24 Subjective Information shoulder was doing better, but now hurting more; have been working 9 hours at time, 3 days/wk & 4-6 hours 2 other days; to go back to dr October 31; PAIN range in the past week 0-6/10; shoulder muscles tight, sometimes catches and pops; decrease pain: rest, ice, after stop the irritating movement- pain eases increase pain: after working is not taking any pain meds Assessment PT Clinical Summary Lou has received 19 PT sessions. 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 As she increases her working time, she has had more pain. The goals were partially met. Continue PT treatments, with modalities for pain and progression of strengthening as tolerated. Plan of Care Interventions Hot Pack/Cold Pack,Manual Therapy,Neuro Re- education,Patient/Caregiver Education,Therapeutic Activities,Therapeutic Exercise,Other Other Interventions taping PT Services Indicated Yes Treatment Frequency and 1-2x/wk for 10 visits Duration These treatments will address the objective and functional deficits as defined above. The patient will be advanced safely and appropriately in order for the patient to progress towards his/her prior level of function. Additional exercises will be introduced and as well as a comprehensive home exercise program upon discharge, if needed, ?to ensure carryover of functional gains achieved in the clinic. This treatment plan has been reviewed and agreement upon by the patient.
--- NOTE | 2024-09-25 09:08 | PCPTNOTE ---
pt was 25 minutes late for today's appt, she had the wrong time.
--- NOTE | 2024-10-08 08:42 | OPREHPOC ---
Outpatient Therapy Plan of Care This is a Multidisciplinary Plan of Care that may contain components documented by all disciplines (PT, OT, and ST.) PT Problem 1 PT Problem #1 Knowledge Deficit PT Goal 1 Goal / Goal Update *indep with HEP 08-21-24 progress met goal continue to progress HEP and education 09-25-24 progress goal met continue to progress HEP and education 10-08-24 d/c- pt scheduled for additional surgery on her shoulder goals were not addressed Target Visit 29 PT Goal 1 Goal / Goal Update * pain rating of 4/10 at worst, with increased activity 08-21-24 progress goal not met, 6/10 at worst continue towards goal 09-25-24 progress goal met NEW GOAL: 1* pain rating of 3/10 at worst 2* pt report able to tolerate working 8 hour day 10-08-24 d/c- pt scheduled for additional surgery on her shoulder goals were not addressed Target Visit 29 PT Problem 3 PT Problem #3 Impaired Range of Motion PT Goal 1 Goal / Goal Update active L shoulder ROM in standin* flexion to 140 2* ER - reach behind head, palm to back of head 3* IR- reaching towards back, palm to sacrum 08-21-24 progress met goals NEW GOALS: 1* flexion to 155' 2* abduction to 140' 3* IR- reach behind back, fingers to lower edge scapula 09-25-24 progress goal 2 met, continue towards goal 1 & 3 10-08-24 d/c- pt scheduled for additional surgery on her shoulder goals were not addressed Target Visit 29 PT Problem 4 PT Problem #4 Impaired Strength PT Goal 1 Goal / Goal Update HOLDbegin strengthening at 10 weeks post op: September 01 08-21-24 progress NEW GOALS: perform standing with hand weight x 10 reps: 1* flexion to 90' with 3# 2* ER with elbow at side, 3# 3* bilateral UE box lift: waist/floor height 20# x 3 reps 09-25-24 progress goals not met continue towards 10-08-24 d/c- pt scheduled for additional surgery on her shoulder goals were not addressed Target Visit 29
--- NOTE | 2024-10-08 08:42 | PTOPDC ---
Assessment and note entered by Sofía Vazquez, PT Assessment Status Discharge - Pt Not Present ICD-10 Condition Codes (PT) Pain in left shoulder M25.512,Weakness R53.1, Encounter for other orthopedic aftercare Z47.89 Onset 06-26-24 Subjective Information pt called and canceled her remaining PT appointments due to going to have additional surgery on her shoulder. Assessment PT Clinical Summary Lou had a follow up dr appointment and is going to have additional surgery on her shoulder in October Discharge PT services. The goals were not addressed. Plan of Care PT Services Indicated No
== END 2024-10-08 10:30 | disposition home or self-care (01) ==
LOC: ANHPT 08:00
PROVIDERS: PCP Family Medicine
DX: M75.102 Unspecified rotator cuff tear or rupture of left shoulder, not specified as traumatic (principal); M12.812 Other specific arthropathies, not elsewhere classified, left shoulder; M25.512 Pain in left shoulder
CPT/HCPCS: 97014; 97035; 97110; 97140; 97161; 97530; G0283

== ENCOUNTER 2025-01-20 12:54 | Outpatient (CLI) | payer BC, SELFPAY ==
--- NOTE | ~2025-01-20 | XR_ITS ---
EXAMINATION: XR hip LT 2V w AP pelvis, 01/20/2025 13:25 CDT HISTORY: Pain in left hip x 2 years, back surgery in 2021 COMPARISON: No comparisons available. Findings: No acute fracture or malalignment. No significant degenerative changes. Soft tissues unremarkable. Impression: No acute fracture or malalignment. Reviewed, dictated and finalized at location A. Impression: No acute fracture or malalignment.
--- NOTE | ~2025-01-20 | MR_ITS ---
EXAMINATION: MR lumbar spine wo con DATE: 01/20/2025 13:27 INDICATION: Radiculopathy, lumbar region. TECHNIQUE: Magnetic resonance imaging (MRI) of the lumbar spine was performed without intravenous contrast. COMPARISON: Lumbar spine radiographs 01/20/2025 FINDINGS: There is 16 degrees dextroscoliosis of lumbar spine. There is 3 mm retrolisthesis of L1 on L2 and 4 mm retrolisthesis of L2 on L3. There are changes of anterior and posterior fusion procedures at L3-L4 with interbody device and pedicle screws. There is mild chronic anterior wedging of T11 and T12 vertebral bodies. There are Schmorl's nodes at multiple levels. There is severely decreased disc height at L1-L2 and L2-L3, moderately decreased disc height at L4-L5, and severely decreased disc height at L5-S1. The distal spinal cord signal intensity is normal. The conus medullaris is at L1-L2. The following disc levels are specifically discussed: L1-L2: The disc is bulging and has an annular fissure. There is severe bilateral facet joint osteoarthritis. There is mild bilateral neural foraminal stenosis. There is mild central canal stenosis. L2-L3: The disc is bulging and has an annular fissure. There is severe bilateral facet joint osteoarthritis. There is moderate bilateral neural foraminal stenosis. There is mild central canal stenosis. L3-L4: There is no facet joint hypertrophy. There is no neural foraminal stenosis. There is no central canal stenosis. There is posterior decompression. L4-L5: The disc is bulging and has an annular fissure. There is severe bilateral facet joint osteoarthritis. There is moderate right and mild left neural foraminal stenosis. There is mild central canal stenosis. L5-S1: The disc is bulging and has an annular fissure. There is severe bilateral facet joint osteoarthritis. There is moderate right and mild left neural foraminal stenosis. There is mild central canal stenosis. IMPRESSION: 1. Severe lumbar spondylosis. 2. Anterior and posterior fusion procedures at L3-L4. 3. Lumbar dextroscoliosis. Reviewed, dictated and finalized at location E.
--- NOTE | ~2025-01-20 | XR_ITS ---
XR lumbar spine 2-3V Indication: Pain in left hip x 2 years, back surgery in 2021 Comparison: None Findings: Dextroconvex scoliosis. Degenerative fixation of L4 and L3 with disc prosthesis, the hardware is intact. Grade 1 retrolisthesis L2 on L3, no acute fracture. Severe loss of the remaining disc heights throughout. Soft tissues unremarkable Impression: No acute abnormality. Reviewed, dictated and finalized at location A. Impression: No acute abnormality.
== END 2025-01-20 12:55 | disposition home or self-care (01) ==
PROVIDERS: Visit Provider Nurse Practitioner Family
DX: M25.552 Pain in left hip (principal); M54.50 Low back pain, unspecified; M54.16 Radiculopathy, lumbar region
CPT/HCPCS: 72100; 72148; 73502

== ENCOUNTER 2025-02-23 08:30 | Outpatient (RCR) | payer BC, SELFPAY ==
--- NOTE | 2024-11-27 12:08 | OPREHPOC ---
Outpatient Therapy Plan of Care This is a Multidisciplinary Plan of Care that may contain components documented by all disciplines (PT, OT, and ST.) PT Problem 1 PT Problem #1 Knowledge Deficit PT Goal 1 Goal / Goal Update Patient to demonstrate independence with HEP for improved self-reliance of symptom management. Target Visit 4 PT Problem 2 PT Problem #2 Pain PT Goal 1 Goal / Goal Update Patient to decrease subjective reports of pain to <2/10 for 2 or more consecutive weeks for improved ADL tolerance. Target Visit 4 PT Problem 3 PT Problem #3 Impaired Range of Motion PT Goal 1 Goal / Goal Update 1. Pt to demonstrate an increase of L shoulder flexion AROM to >=90 deg to improve the ability to reach above shoulder height. 2. Pt to demonstrate an increase of L shoulder flexion PROM to >=130 deg to improve shoulder flexibility. 3. Pt to demonstrate an increase of L shoulder external rotation PROM to >=30 deg to meet protocol restrictions. Target Visit 8 PT Problem 4 PT Problem #4 Impaired Strength PT Goal 1 Goal / Goal Update Patient to demonstrate L shoulder strength >=3+/5 to demonstrate improving muscular recruitment post operatively. Target Visit 8 PT Problem 5 PT Problem #5 Impaired Functional ADLs PT Goal 1 Goal / Goal Update Patient will score </=45% disability on the QuickDash to demonstrate meaningful improvement in patient's quality of life. Target Visit 8
--- NOTE | 2024-11-27 12:08 | PTOPEVAL1 ---
Assessment and note entered by Marli Cramer, PT Evaluation Information Assessment Status Evaluation ICD-10 Condition Codes (PT) Pain in left shoulder M25.512,Aftercare following joint replacement surgery Z47.1 Onset 10/31/24 Subjective Information Pt presents s/p L R TSA on 10/31/[address] Espinoza. Pt reports no complications with her most recent surgery. Pt had a RTC repair and bicep tenodesis earlier this year which failed in her perspective. She is frustrated that she has been off work trying to recover and wishes she would have had the replacement done first. Pt needs to get back to work, ADLS and IADLS. Pt is currently sleeping in bed with no support under her shoulder. She has not had to take pain medication since week 1 post op and no other anti-inflammatories. She does take Methotrexate and Humira for her rheumatoid arthritis. Pt is having dull aching pain which worsens with movement. She has to take all ADLs slow but knows she is very weak. She is also reported difficulties with her R shoulder as well, thinks there is a tear in that RTC as well. Reported Pain Level Pain Score 2: Self Report Assessment PT Clinical Summary Pt is a 64 year old female who presents to physical therapy s/p L RTSA on 10/31/24. Pt demonstrates post op weakness, post op pain, decreased shoulder mobility, abnormal scapular posture, and decreased flexibility that limit their ability to perform ADLs. Pt will benefit from skilled physical therapy to address the above listed deficits and return to PLOF. HEP instructed and written handout provided, EX tolerated well with no adverse effects to note post-session. Pt was educated on importance of adherence to HEP. Pt was also educated on anatomy, prognosis, home modalities, and PT POC. Plan of Care Interventions Electrical Stimulation,Hot Pack/Cold Pack,Manual Therapy,Neuro Re-education,Therapeutic Activities, Therapeutic Exercise,Ultrasound PT Services Indicated Yes Treatment Frequency and 2x/wk for 8 sessions Duration These treatments will address the objective and functional deficits as defined above. The patient will be advanced safely and appropriately in order for the patient to progress towards his/her prior level of function. Additional exercises will be introduced and as well as a comprehensive home exercise program upon discharge, if needed, ?to ensure carryover of functional gains achieved in the clinic. This treatment plan has been reviewed and agreement upon by the patient.
--- NOTE | 2024-12-25 13:16 | OPREHPOC ---
Outpatient Therapy Plan of Care This is a Multidisciplinary Plan of Care that may contain components documented by all disciplines (PT, OT, and ST.) PT Problem 1 PT Problem #1 Knowledge Deficit PT Goal 1 Goal / Goal Update Patient to demonstrate independence with HEP for improved self-reliance of symptom management. Target Visit 4 Progress Met PT Problem 2 PT Problem #2 Pain PT Goal 1 Goal / Goal Update Patient to decrease subjective reports of pain to <2/10 for 2 or more consecutive weeks for improved ADL tolerance. Target Visit 4 Progress Partially Met PT Problem 3 PT Problem #3 Impaired Range of Motion PT Goal 1 Goal / Goal Update 1. Pt to demonstrate an increase of L shoulder flexion AROM to >=135 deg to improve the ability to reach above shoulder height. 2. Pt to demonstrate an increase of L shoulder flexion PROM to >=160 deg to improve shoulder flexibility. 3. Pt to demonstrate an increase of L shoulder external rotation PROM to >=70 deg 12/25/24: Updated goals for protocol expectations Target Visit 16 Progress Partially Met PT Problem 4 PT Problem #4 Impaired Strength PT Goal 1 Goal / Goal Update Patient to demonstrate L shoulder strength >=4/5 to demonstrate improving muscular recruitment post operatively. 12/25/24: Updated goals for protocol expectations Target Visit 16 Progress Partially Met PT Problem 5 PT Problem #5 Impaired Functional ADLs PT Goal 1 Goal / Goal Update Patient will score </=45% disability on the QuickDash to demonstrate meaningful improvement in patient's quality of life. Target Visit 8 Progress Met
--- NOTE | 2024-12-25 13:16 | PTOPPROG ---
Assessment and note entered by Geoffrey Garza, PT Evaluation Information Assessment Status Progress ICD-10 Condition Codes (PT) Pain in left shoulder M25.512,Aftercare following joint replacement surgery Z47.1 Onset 10/31/24 Subjective Information Reports that overalls he feels she is doing well. Pain has been mostly controlled but she still gets sore with activity. Feels that she is having a hard time relaxing the shoulder, especially when she is laying down. Overhead activity is difficulty as well which she attributes to pain and weakness. Assessment PT Clinical Summary Patient has seen both ROM and strength improvement to this point. Still showing deficits in both with pain being somewhat of an inhibitor to shoulder ROM at this time. 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 Plan of Care Interventions Electrical Stimulation,Hot Pack/Cold Pack,Manual Therapy,Neuro Re-education,Therapeutic Activities, Therapeutic Exercise,Ultrasound PT Services Indicated Yes Treatment Frequency and 2x/week for 8 visits Duration These treatments will address the objective and functional deficits as defined above. The patient will be advanced safely and appropriately in order for the patient to progress towards his/her prior level of function. Additional exercises will be introduced and as well as a comprehensive home exercise program upon discharge, if needed, ?to ensure carryover of functional gains achieved in the clinic. This treatment plan has been reviewed and agreement upon by the patient.
--- NOTE | 2025-01-15 08:12 | PCPTNOTE ---
No call no show, reason unknown. AKRiky
--- NOTE | 2025-01-29 09:00 | OPREHPOC ---
Outpatient Therapy Plan of Care This is a Multidisciplinary Plan of Care that may contain components documented by all disciplines (PT, OT, and ST.) PT Problem 1 PT Problem #1 Knowledge Deficit PT Goal 1 Goal / Goal Update Patient to demonstrate independence with HEP for improved self-reliance of symptom management. Target Visit 4 Progress Met PT Goal 2 Goal / Goal Update 01-29-25 progress * progression of HEP for strengthening of shoulder Target Visit 23 PT Problem 2 PT Problem #2 Pain PT Goal 1 Goal / Goal Update Patient to decrease subjective reports of pain to <2/10 for 2 or more consecutive weeks for improved ADL tolerance. Target Visit 4 Progress Met PT Goal 2 Goal / Goal Update 01-29-25 progress * pt report pain at worst rating of 2/10 with increased activity and strengthening Target Visit 23 PT Problem 3 PT Problem #3 Impaired Range of Motion PT Goal 1 Goal / Goal Update 1. Pt to demonstrate an increase of L shoulder flexion AROM to >=135 deg to improve the ability to reach above shoulder height. 2. Pt to demonstrate an increase of L shoulder flexion PROM to >=160 deg to improve shoulder flexibility. 3. Pt to demonstrate an increase of L shoulder external rotation PROM to >=70 deg 12/25/24: Updated goals for protocol expectations Target Visit 16 Progress Partially Met PT Goal 2 Goal / Goal Update 01-29-25 progress NEW GOALS: active in standing: L shoulder 1* flexion 150' 2* abduction 120' 3* IR- reach behind back, palm to above waist 4* ER- reach to back of head, palm to back of head Target Visit 23 PT Problem 4 PT Problem #4 Impaired Strength PT Goal 1 Goal / Goal Update Patient to demonstrate L shoulder strength >=4/5 to demonstrate improving muscular recruitment post operatively. 12/25/24: Updated goals for protocol expectations Target Visit 16 Progress Partially Met PT Goal 2 Goal / Goal Update 01-29-25 progress NEW GOAL: * increase strength of L shoulder to 4/5, to improve functional use of UE with home and self care tasks Target Visit 23 PT Problem 5 PT Problem #5 Impaired Functional ADLs PT Goal 1 Goal / Goal Update Patient will score </=45% disability on the [employer] to demonstrate meaningful improvement in patient's quality of life. Target Visit 8 Progress Met
--- NOTE | 2025-01-29 09:00 | PTOPPROG ---
Assessment and note entered by Sofía aVzquez, PT Evaluation Information Assessment Status Progress ICD-10 Condition Codes (PT) Pain in left shoulder M25.512,Aftercare following joint replacement surgery Z47.1 Onset 10/31/24 Subjective Information shoulder is better; am working 9 hours but able to take breaks during day; reaching up is still weak ; have returned to gym for fitness exercises, but not doing any arm strengthening; still have some numbness and tingle in L side of neck- not all the time and it is less than before; fee; like I need to continue therapy for more strengthening. Am doing everything at home and work but shoulder still has some weakness; PAIN: range in the past week 0-2/10, lateral shoulder--sharp, sore, hurts, pain increase pain: working 9 hours, reaching up decrease pain: rest no pain meds or ice; no issues with sleeping Assessment PT Clinical Summary Lou has received 23 PT sessions. She is now post op week #13 and in phase 4 of protocol for total shoulder replacement. She is motivated and working on her exercises. 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 L shoulder ROM: active in standing/passive in supine: flexion 125/145'; abduction 90/125' IR- in standing, reaching behind her back, palm to waist; ER- reaching to back of head, fingers to back of head. L UE strength: with hand weight x 5 reps: shoulder flexion to ~ 90' with 3# shoulder abduction to ~ 80' with 2# elbow flexion/extension with 8# bilateral UE maximum box lift from waist/floor height: increase weight to 32#, no pain in L shoulder and good body mechanics The goals were partially achieved. Continue PT 1x/week to progress strengthening and increase shoulder ROM, with progression of HEP. Plan of Care Interventions Electrical Stimulation,Hot Pack/Cold Pack,Manual Therapy,Neuro Re-education,Therapeutic Activities, Therapeutic Exercise,Ultrasound PT Services Indicated Yes Treatment Frequency and 1x/wk for 8 visits Duration These treatments will address the objective and functional deficits as defined above. The patient will be advanced safely and appropriately in order for the patient to progress towards his/her prior level of function. Additional exercises will be introduced and as well as a comprehensive home exercise program upon discharge, if needed, ?to ensure carryover of functional gains achieved in the clinic. This treatment plan has been reviewed and agreement upon by the patient.
== END 2025-02-25 23:59 | disposition home or self-care (01) ==
LOC: ANHPT 08:30
PROVIDERS: PCP Family Medicine
DX: Z47.1 Aftercare following joint replacement surgery (principal); M25.512 Pain in left shoulder; Z96.612 Presence of left artificial shoulder joint
CPT/HCPCS: 97110; 97112; 97140; 97161; 97530